=== PATIENT | male | born 1930 | race Caucasian/White ===

== ENCOUNTER 2016-06-02 23:19 | Inpatient (IN) | payer OTHER ==
[~2016-06-02] VITALS: Ht 165.1 cm; Wt 63.5 kg
[~2016-06-02 23:19] MED LIST: AMIODARONE HCL200 M1 PO; AMLODIPINE BESYL5 M1 PO; ASPIRIN EC81 M1 PO; AUGMENTIN 875-1 EACH PO; ELIQUIS5 M1 PO; FLOMAX0.4 M1 PO; GLYCOTROL CAPS1 EACH PO; LISINOPRIL10 M1 PO; LOPRESSOR50 M1 PO; LOSARTAN POTASS50 M1 PO; OMEGA 3-6-9 11200 MG PO; OMEPRAZOLE20 M3 PO; OSTERA TABLET1 EACH PO; PAN-C 500 TABL1 EACH PO; PREDNISONE10 M2 PO; PROAIR HFA8.5 GM INH; SYMBICORT 16010.2 GM INH
--- NOTE | 2016-06-02 23:22 | ED DYSPNEA/ASTHMA COMPLAINT ---
History of Present Illness General Chief Complaint: Dyspnea (COPD, CHF, Other) Stated Complaint: SOB Source: patient Exam Limitations: no limitations Vital Signs & Intake/Output Vital Signs & Intake/Output Vital Signs Date Time Temp Pulse Resp B/P Pulse O2 O2 Flow FiO2 Ox Delivery Rate 06/03 0158 97.9 76 22 139/63 97 Nasal 3.0L Cannula 06/03 0114 92 Nasal 3.0L Cannula 06/02 2334 100 Aerosol 7.0L Mask 06/02 2333 100 Non 6.0L ReBreather 06/02 2326 97.7 58 24 166/96 100 Non 6.0L ReBreather ED Intake and Output 06/03 0000 06/02 1200 Intake Total Output Total Balance Patient 145 lb Weight Allergies Coded Allergies: NO KNOWN ALLERGIES (01/24/12) Reconcile Medications Albuterol Sulfate (Proair Hfa) 90 MCG HFA.AER.AD 2 PUF INH Q4-6 PRN PRN COPD Amiodarone HCl 200 MG TABLET 200 MG PO BID irrigular rhythm Amlodipine Besylate 5 MG TABLET 5 MG PO DAILY HEART HEALTH (Reported) Apixaban (Eliquis) 5 MG TABLET 5 MG PO BID BLOOD THINNER Aspirin (Ecotrin*) 81 MG TABLET.DR 81 MG PO DAILY HEART HEALTH (Reported) Budesonide/Formoterol Fumarate (Symbicort 160-4.5 Mcg Inhaler) 160 MCG-4.5 MCG/ ACTUATION HFA.AER.AD 2 PUF INH BID COPD Losartan Potassium 50 MG TABLET 50 MG PO DAILY HIGH BLOOD PRESSURE Metoprolol Tartrate (Lopressor) 50 MG TABLET 50 MG PO BID HIGH BLOOD PRESSURE (Reported) Omeprazole 20 MG TABLET.DR 20 MG PO DAILY ACID REFLUX Prednisone 10 MG TABLET 1 TAB PO SI COPD 03/05-03/06 30 MG 03/07-03/08 20 MG 03/09 10 MG Then Stop Prednisone 10 MG TABLET 1 TAB PO AD COPD DAY1/DAY2 FOUR TABS DAY3/DAY4 THREE TABS DAY5/DAY6 TWO TABS DAY7 ONE TAB Tamsulosin HCl (Flomax) 0.4 MG CAP.ER.24H 0.4 MG PO DAILY urinary retention Vit B12/FA/Pyridoxine HCl/Aa15 (Glycotrol Capsule) 500 MCG-400 MCG-10 MG-400 MG CAPSULE 100 MCG PO DAILY ANEMIA (Reported) Vit C/Hesperidin/Bioflavonoids (Grande-C 500 Tablet) 500 MG-100 MG-100 MG TABLET 500 MG PO DAILY IMMUNE SUPPORT (Reported) Vit D3 & K/Berberine HCl/Hops (Ostera Tablet) 500 UNIT-500 MCG-90 MG-370 MG TABLET 1,000 UNITS PO DAILY HEART HEALTH (Reported) Triage Nurses Notes Reviewed? yes Onset: Gradual Duration: day(s):, waxing and waning Timing: recent history Severity: moderate Activities at Onset: none Prior Episodes/Possible Cause: occasional episodes Modifying Factors: Improves With: rest. Associated Symptoms: cough, wheezing HPI: 86yo gentleman h/o copd, presents with cough, dypsnea, shortness of breath, wheezing that started earlier today. The medics noted that he was breathless, with difficulty speaking, 02 sat was 90 -93% on 2liters nasal cannula. He received solumedrol 125mg iv and duo neb in the field. Past History Medical History Any Pertinent Medical History? 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 No Review of Systems Review of Systems Constitutional: Reports: no symptoms. EENTM: Reports: no symptoms. Respiratory: Reports: no symptoms. Cardiovascular: Reports: no symptoms. GI: Reports: no symptoms. Genitourinary: Reports: no symptoms. Musculoskeletal: Reports: no symptoms. Skin: Reports: no symptoms. Neurological/Psychological: Reports: no symptoms. Hematologic/Endocrine: Reports: no symptoms. Immunologic/Allergic: Reports: no symptoms. All Other Systems: Reviewed and Negative Physical Exam Physical Exam General Appearance: well developed/nourished, no apparent distress Head: atraumatic, normal appearance Eyes: Bilateral: normal appearance. Ears, Nose, Throat: normal pharynx, normal ENT inspection Neck: normal inspection, supple, full range of motion Respiratory: wheezing, prolonged expiratory phase Cardiovascular: regular rate/rhythm Gastrointestinal: normal bowel sounds, soft, non-tender Extremities: normal inspection Neurologic/Psych: no motor/sensory deficits, awake, alert, oriented x 3 Skin: intact, normal color, warm/dry Core Measures ACS in differential dx? No Severe Sepsis Present: No Septic Shock Present: No Progress Differential Diagnosis: asthma, bronchitis, CHF, COPD, pneumonia Plan of Care: Orders Procedure Date/time Status Heart Healthy Diet 06/03 B Active CBC WITHOUT DIFFERENTIAL 06/03 599 Active BASIC ELECTROLYTES PLUS BUN&CR 06/03 599 Active Pathway - chart 06/03 139 Active House Staff 06/03 139 Active Patient Data 06/03 139 Active Code Status 06/03 139 Active Patient Data 06/03 0133 Active VTE Mechanical Prophylaxis 06/03 UNK Active BLOOD CULTURE 06/02 2355 Active BLOOD CULTURE 06/02 2354 Active ARTERIAL BLOOD GAS (GEN) 06/02 2322 Complete TROPONIN LEVEL 06/02 2322 Complete LIPASE 06/02 2322 Complete COMPREHENSIVE METABOLIC PANEL 06/02 2322 Complete CBC WITHOUT DIFFERENTIAL 06/02 2322 Complete AMYLASE 06/02 2322 Complete Laboratory Tests 06/02/16 2353: Anion Gap 6, Estimated GFR > 60, BUN/Creatinine Ratio 12.2, Glucose 115 H, Calcium 8.7, Total Bilirubin 0.7, AST 34, ALT 42, Alkaline Phosphatase 119, Troponin I < 0.01, Total Protein 6.0 L, Albumin 3.5, Globulin 2.5, Albumin/ Globulin Ratio 1.4, Amylase < 30 L, Lipase 126, CBC w Diff MAN DIFF ORDERED, RBC 4.01 L, MCV 95.2 H, MCH 32.1 H, RDW 13.9, MPV 8.6, Gran % 63.8, Lymphocytes % 14.5 L, Monocytes % 14.0 H, Eosinophils % 7.0 H, Basophils % 0.7, Absolute Granulocytes 6.6 H, Segmented Neutrophils 65, Absolute Lymphocytes 1.5, Lymphocytes 17 L, Monocytes 8, Absolute Monocytes 1.4 H, Eosinophils 7 H, Absolute Eosinophils 0.7, Basophils 3 H, Absolute Basophils 0.1, Platelet Estimate ADEQUATE, Normocytic RBCs VERIFIED, Normochromic RBCs VERIFIED, PUBS MCHC 33.7, Fld Total RBCs Counted 100 06/02/160: pH 7.41, pCO2 42, pO2 151 H, HCO3 26, ABG O2 Sat (Measured) 98.0, P-50 (Temp Corrected) Y, Carboxyhemoglobin 0.3 L, O2 Concentration % 9 LPM, Temperature 97.7, O2 Delivery Method A/M W/ NEB, Phlebotomy Draw Site RIGHT RADIAL Microbiology 06/03 19 BLOOD: Blood Culture - RECD 06/03 4 BLOOD: Blood Culture - RECD Diagnostic Imaging: Viewed by Me: Radiology Read. Discussed w/RAD: Radiology Read. CXR Impression: hyperinflation Initial ED EKG: normal axis, normal intervals, normal p-waves, normal QRS complex, normal sinus rhythm Comments: PATIENT: ZARINA SMITH PRESENT AGE: 86 PATIENT ACCOUNT NO: [id number] : 30 LOCATION: [facility] ORDERING PHYSICIAN: CLAUDETTE MCCARTNEY MD SERVICE DATE: 06/02/16 EXAM TYPE: RAD - XRY-PORTABLE CHEST XRAY EXAMINATION: CHEST 1 VIEW CLINICAL INFORMATION: Dyspnea. COMPARISON: 03/17/2016. TECHNIQUE: An AP view of the chest is provided. FINDINGS: The cardiac silhouette is not enlarged. The mediastinal and hilar contours are unremarkable. There are neither pleural effusions nor pneumothoraces. There are no consolidations. The lungs are hyperinflated. The osseous structures are unremarkable. IMPRESSION: No evidence for acute disease. Lung hyperinflation. 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 <Electronically signed in Other Vendor System> SIGNED BY: LLOYD WHARTON MD 06/03/16 004 Departure Departure Disposition: STILL A PATIENT Condition: Stable Clinical Impression Primary Impression: COPD exacerbation Referrals: GA NEWSOME,HADLEY Santos (PCP/Family) Departure Forms: Customer Survey General Discharge Information Admission Note Spoke With: BRANDIN TURNER MD Documentation of Exam: Documentation of any treatments & extenuating circumstances including Concerns Regarding Discharge (functional status, medication knowledge or non-compliance, living conditions, etc.) that warrant an admission rather than observation: After IV steroids and nebs, patient continues to be dyspneic and wheezy with prolonged expiratory phase. His baseline oxygen requirement is 2 L nasal cannula. At this level, his O2 sat is in the low 90s, with symptomatic dyspnea. He merits admission for supplemental oxygen support, IV steroids, nebulizer treatment, and IV antibiotics. Critical Care Note Critical Care Note Critical Care Time: non-applicable
--- NOTE | 2016-06-02 23:25 | NUR ---
PT BIBA FROM HOME C/O INCREASING SOB. PT HAS HX OF COPD. PER EMS PT WAS 93% ON 2L THAT HE WEARS AT HOME. PT RECIEVED A DUONEB AND 125MG SOLUMEDROL IN THE FIELD. PT ARRIVES [id number], 100% ON DUONEB, USING ACCESSORY MUSCLES.
--- NOTE | 2016-06-02 23:33 | NUR ---
RESPIRATORY AT BEDSIDE
[2016-06-03 00:01] LABS: ABSOLUTE BASOPHIL COUNT 0.1 /CUMM (0.0-0.2); ABSOLUTE EOSINOPHIL COUNT 0.7 /CUMM (0.0-0.7); ABSOLUTE GRANULOCYTE CT 6.6 /CUMM (1.4-6.5); ABSOLUTE LYMPH COUNT 1.5 /CUMM (1.2-3.4); ABSOLUTE MONOCYTE COUNT 1.4 /CUMM (0.10-0.60); BASOPHIL % 0.7 % (0.0-2.0); GRANULOCYTE % 63.8 % (42.2-75.2); HEMATOCRIT 38.1 % (42-52); MEAN CORPUSCULAR HGB 32.1 PG (27.0-31.0); MEAN CORPUSCULAR HGB CONC 33.7 G/DL (33.0-37.0); MEAN CORPUSCULAR VOLUME 95.2 FL (80.0-94.0); MEAN PLATELET VOLUME 8.6 FL (7.4-10.4); PLATELET COUNT 320 /CUMM (130-400); RBC DISTRIBUTION WIDTH 13.9 % (11.5-14.5); RED BLOOD CELL CT 4.01 /CUMM (4.70-6.10); WHITE BLOOD CELL COUNT 10.4 /CUMM (4.8-10.8)
--- NOTE | 2016-06-03 00:17 | NUR ---
SECOND IV EST #20 IN RIGHT FOREARM, BLOODS DRAWN AND SENT TO LAB
--- NOTE | 2016-06-03 00:30 | NUR ---
PT MEDICATED WITH 1G ROCEPHIN AND 250MG ZITHROMAX INFUSING PER EMAR
--- NOTE | 2016-06-03 00:41 | RADIOLOGY REPORT ---
EXAMINATION: CHEST 1 VIEW CLINICAL INFORMATION: Dyspnea. COMPARISON: 03/17/2016. TECHNIQUE: An AP view of the chest is provided. FINDINGS: The cardiac silhouette is not enlarged. The mediastinal and hilar contours are unremarkable. There are neither pleural effusions nor pneumothoraces. There are no consolidations. The lungs are hyperinflated. The osseous structures are unremarkable. IMPRESSION: No evidence for acute disease. Lung hyperinflation.
--- NOTE | 2016-06-03 02:21 | NUR ---
HOUSE STAFF AT BEDSIDE FOR PT EVAL
--- NOTE | 2016-06-03 02:26 | History & Physical ---
WENDY NEWSOME,[facility] 06/03/16 0226: General Information and HPI MD Statement: I have seen and personally examined ZARINA SMITH and documented this H&P. The patient is a 86 year old M who presented with a patient stated chief complaint of [I couldn't breathe]. Source of Information: patient Exam Limitations: no limitations History of Present Illness: Patient is a 86 year old male who has come to the ED from home due to worsening shortness of breath since yesterday. Patient has had SOB for a while (not sure how long), both at rest and on ambulation but since yesterday he has significantly increased difficulty breathing accompanied by wheezing, coughing and bringing up phlegm. denies fever or chills. Denies any sick contacts or flu- like symptoms. He has a history of COPD on inhalers and 2L oxygen at home and follows up with Dr. Bonner. He also reports bilateral lower leg swelling for about a month. Denies any chest pain or palpitations. He has a history of coronary artery disease and follows up with Dr. Cordoba and was supposed to see him today (last saw him 3 months ago). Patient was last admitted to in January 2016 due to shortness of breath and cough and was treated for acute bronchitis. Allergies/Medications Allergies: Coded Allergies: NO KNOWN ALLERGIES (01/24/12) Past History Travel History Traveled to [place] past 21 day No Medical History Neurological: NONE EENT: NONE Cardiovascular: CAD, hypertension, hyperlipidemia, paroxysmal atrial fibrillation. Saccular aneurysms of thoracic aortic arch, patient has refused any intervention. Respiratory: bronchitis, COPD Gastrointestinal: NONE Hepatic: NONE Renal: per the patient he also has bladder cancer, follows up with Dr. Sigala, she suggested surgical treatment but patient has refused. 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 EENTM: Reports: no symptoms. Cardiovascular: Reports: edema, peripheral edema. Denies: chest pain, orthopena, palpitations, syncope. Respiratory: Reports: cough, short of breath, sputum production (clear phlegm), wheezing. Denies: hemoptysis, orthopnea, stridor. GI: Denies: abdominal pain, nausea, changes in stool, vomiting. Genitourinary: Reports: no symptoms. Musculoskeletal: Reports: no symptoms. Skin: Reports: no symptoms. Neurological/Psychological: Reports: no symptoms. Hematologic/Endocrine: Reports: no symptoms. Exam & Diagnostic Data Last 24 Hrs of Vital Signs/I&O Vital Signs Date Time Temp Pulse Resp B/P Pulse O2 O2 Flow FiO2 Ox Delivery Rate 06/03 0158 97.9 76 22 139/63 97 Nasal 3.0L Cannula 06/03 0114 92 Nasal 3.0L Cannula 06/02 2334 100 Aerosol 7.0L Mask 06/02 2333 100 Non 6.0L ReBreather 06/02 2326 97.7 58 24 166/96 100 Non 6.0L ReBreather Intake & Output 06/03 0800 06/03 0000 06/02 1600 Intake Total 250 Output Total Balance 250 Intake, IV 250 Patient 65.771 kg Weight Physical Exam General Appearance Alert, Oriented X3, Cooperative, Mild Distress Skin several hyperkeratotic skin lesions in the posterior trunk HEENT Atraumatic, PERRLA, EOMI, Mucous Membr. moist/pink Neck Supple, JVD + Cardiovascular Normal S1, Normal S2 Lungs end expiratory wheezing, bilateral and scattered rhonchi present Abdomen Normal Bowel Sounds, Soft, No Tenderness Neurological Normal Speech, Strength at 5/5 X4 Ext, Normal Tone, Sensation Intact, Cranial Nerves 3-12 NL Extremities No Clubbing, No Cyanosis, 3+ pitting edema bilaterally in lower extremities Vascular Normal Pulses, Pulses Symmetrical Last 24 Hrs of Labs/Kushal: Laboratory Tests 06/02/16 2353: Anion Gap 6, Estimated GFR > 60, BUN/Creatinine Ratio 12.2, Glucose 115 H, Calcium 8.7, Total Bilirubin 0.7, AST 34, ALT 42, Alkaline Phosphatase 119, Troponin I < 0.01, Qre-P-Bthvrscumbp Pept 720 H, Total Protein 6.0 L, Albumin 3.5, Globulin 2.5, Albumin/Globulin Ratio 1.4, Amylase < 30 L, Lipase 126, CBC w Diff MAN DIFF ORDERED, RBC 4.01 L, MCV 95.2 H, MCH 32.1 H, RDW 13.9, MPV 8.6, Gran % 63.8, Lymphocytes % 14.5 L, Monocytes % 14.0 H, Eosinophils % 7.0 H, Basophils % 0.7, Absolute Granulocytes 6.6 H, Segmented Neutrophils 65, Absolute Lymphocytes 1.5, Lymphocytes 17 L, Monocytes 8, Absolute Monocytes 1.4 H, Eosinophils 7 H, Absolute Eosinophils 0.7, Basophils 3 H, Absolute Basophils 0.1, Platelet Estimate ADEQUATE, Normocytic RBCs VERIFIED, Normochromic RBCs VERIFIED, PUBS MCHC 33.7, Fld Total RBCs Counted 100 06/02/16 2340: pH 7.41, pCO2 42, pO2 151 H, HCO3 26, ABG O2 Sat (Measured) 98.0, P-50 (Temp Corrected) Y, Carboxyhemoglobin 0.3 L, O2 Concentration % 9 LPM, Temperature 97.7, O2 Delivery Method A/M W/ NEB, Phlebotomy Draw Site RIGHT RADIAL Microbiology 06/03 0020 BLOOD: Blood Culture - RECD 06/03 0005 BLOOD: Blood Culture - RECD Assessment/Plan Assessment: Patient is a 85-year-old male with past medical history of COPD and chronic bronchitis on 2L O2 at home, HTN, CAD s/p angioplasty, hx of bladder and prostate cancer, thoracic aortic aneurysm, paroxysmal atrial fibrillation, who presented to the ED with a chief complaint of worsening shortness of breath and wheezing as well as B/L lower extremity edema. Problem list and plan: Shortness of breath most likely secondary to COPD exacerbation, rule out CHF In the ED was saturating on 3 L with nasal cannula, vital signs stable, chest x- ray showing hyperinflated lungs with no pleural effusion or consolidation. B/L LE edema. Negative troponin, proBNP elevated to 720 * Oxygen supplementation as needed * Vital signs every shift * TRC nebs * IV Solu-Medrol 40 mg 4 times a day * IV ceftriaxone, 1 mg daily (azithromycin can't be given due to prolonged QTC) * 20 mg IV Lasix one-time dose * Repeat sodium 4 hours * Strict I's and O's * Monitor weight * Fluid restriction in the diet * Cardiology consult in a.m. with Dr. Cordoba * follow up repeat troponin and EKG in a.m. Hyponatremia Possibly due to volume overload * IV lasix 20 mg 1 dose * Fluid restriction 1000 ml * follow up serum osmolality, unrine osmolality and urine lytes Paroxysmal atrial fibrillation * Eliquis 5 mg twice a day * Amiodarone 200 mg twice a day (CMR needs to be confirmed) Hypertension * Continue amlodipine 5 mg daily * Continue amiodarone * will start losartan and Flomax after confirming the CMR History of thoracic aortic aneurysm Currently hemadynamometrically stable. Denies chest pain. Pressure in both arms were checked, R 160/80 and L 160/60. Diet * Heart healthy diet with fluid restriction DVT prophylaxis * Continue Eliquis CODE STATUS * Full code As Ranked By This Provider Problem List: 1. COPD exacerbation 2. CAD (coronary artery disease) 3. Chronic bronchitis 4. Paroxysmal atrial fibrillation 5. Prostate cancer 6. HTN (hypertension) Core Measures/Miscellaneous Acute Coronary Syndrome ACS Diagnosis: No Cerebrovascular Accident CVA/TIA Diagnosis: No Congestive Heart Failure CHF Diagnosis: No (needs to be ruled out) Date of most recent Echo: 02/29/16 Last Known EF %: 65 Comment: elevated proBNP, LE edema Venous Thromboembolism VTE Risk Factors: Acute medical illness, Age > 40 VTE Prophylaxis Ordered Inpt: Pharm- Eliquis No [facility] VTE prophylaxis d/t: No contraindications No VTE Pharm Prophylaxis d/t: No contraindications VTE Diagnosis: No VTE Type: NONE VTE Confirmed by (Test): NONE Severe Sepsis Severe Sepsis Present: No Septic Shock Septic Shock Present: No Miscellaneous Documentation Attending Case Discussed With: BRANDIN TURNER MD Primary Care Physician: HADLEY KOROMA MD Patient sees these Specialists Dr. Cordoba, cardiology Dr. Sigala, urology THIAGO TAMAYO 06/03/16 0330: General Information and HPI Allergies/Medications Home Med list Albuterol Sulfate (Proair Hfa) 90 MCG HFA.AER.AD 2 PUF INH Q4-6 PRN PRN COPD Amiodarone HCl 200 MG TABLET 200 MG PO BID irrigular rhythm Amlodipine Besylate 5 MG TABLET 5 MG PO DAILY HEART HEALTH (Reported) Apixaban (Eliquis) 5 MG TABLET 5 MG PO BID BLOOD THINNER Aspirin (Ecotrin*) 81 MG TABLET.DR 81 MG PO DAILY HEART HEALTH (Reported) Budesonide/Formoterol Fumarate (Symbicort 160-4.5 Mcg Inhaler) 160 MCG-4.5 MCG/ ACTUATION HFA.AER.AD 2 PUF INH BID COPD Losartan Potassium 50 MG TABLET 50 MG PO DAILY HIGH BLOOD PRESSURE Metoprolol Tartrate (Lopressor) 50 MG TABLET 50 MG PO BID HIGH BLOOD PRESSURE (Reported) Omeprazole 20 MG TABLET.DR 20 MG PO DAILY ACID REFLUX Tamsulosin HCl (Flomax) 0.4 MG CAP.ER.24H 0.4 MG PO DAILY urinary retention Vit B12/FA/Pyridoxine HCl/Aa15 (Glycotrol Capsule) 500 MCG-400 MCG-10 MG-400 MG CAPSULE 100 MCG PO DAILY ANEMIA (Reported) Vit C/Hesperidin/Bioflavonoids (Grande-C 500 Tablet) 500 MG-100 MG-100 MG TABLET 500 MG PO DAILY IMMUNE SUPPORT (Reported) Vit D3 & K/Berberine HCl/Hops (Ostera Tablet) 500 UNIT-500 MCG-90 MG-370 MG TABLET 1,000 UNITS PO DAILY HEART HEALTH (Reported) Core Measures/Miscellaneous Miscellaneous Documentation Level of Patient Care: General Medicine Resident Review Statement Resident Statement: examined this patient, discussed with wireless internet installer Other Findings: Patient is 86-year-old gentleman with past medical history significant for atrial fibrillation on eliquis and amiodarone, hypertension, CAD status post angioplasty, prostate cancer, oxygen dependent COPD, 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 According to patient he was very short of breath lately but that got worse yesterday when it was hard for him to catch his breath and he was wheezing a lot. He also admits that he has mild productive cough with clear phlegm and worsening bilateral lower extremity edema. He denied fever, chills, headache, chest pain, palpitations, nausea, vomiting, any urinary or bowel complaints. Vital signs on admission were temperature 97.7, pulse 58, respiratory rate 24, blood pressure was 66/96 and saturating 100% on 100% nonrebreather but later on was saturating 97% on 3 L nasal cannula. Labs were significant for WBC count 10.4, hemoglobin 12.9, hematocrit 38.1, platelet count 320, ABGs shows pH of 7.41, PCO2 42, PO2 151, sodium 124, potassium 3.8, chloride 88, BUN 11, creatinine 0.9, glucose 115, troponins less than 0.01 and proBNP 720 EKG showed prolonged QTC, no acute ST T-wave changes Chest x-ray showed hyperinflated lungs Physical examination Alert and oriented 3 but in mild distress and using accessory muscles for breathing Head atraumatic Neck supple with elevated JVD Heart muffled heart sound without any murmurs Chest loud wheezing with reduced air entry Abdomen protuberant with normal bowel sounds Extremities shows 2+ bilateral lower extremity edema no Neurological deficit Assessment and plan Patient is 86 years old gentleman with history of COPD on 2 L home oxygen, CAD, prostate cancer, hypertension, atrial fibrillation on anticoagulation came with worsening shortness of breath and wheezing with hypoxia most likely due to COPD exacerbation but CHF needs to be ruled out We will admit patient on general medical floor Vital signs every shift Check ins and outs Repeat labs in a.m. including troponins and EKGs We'll give patient 20 mg of IV Lasix now and will request cardiology evaluation by Dr. Cordoba in a.m. patient had recent echocardiogram showed normal ejection fraction TRC and nebulization\ Will start her on ceftriaxone 1 g daily. Azithromycin can't be given due to prolonged QTC Fluid restriction We will continue home doses of amlodipine, amiodarone, etc. then, losartan and Flomax Pharmacological DVT prophylaxis with apixiban Heart healthy diet He is DNI DNR BRANDIN TURNER 06/03/16 0435: Attending MD Review Statement Attending Statement Attending MD Statement: examined this patient, discuss w/resident/PA/DOOR TO DOOR SALES REPRESENTATIVE, agreed w/resident/PA/DOOR TO DOOR SALES REPRESENTATIVE, reviewed EMR data (avail), reviewed images, amended to note Attending Assessment/Plan: CC: Acute worsening of shortness of breath PMH: HTN, CAD S/P stent, prostate cancer, history of COPD bronchitis on 2 L O2, paroxysmal A. fib, COPD on 2 L O2, aneurysm in aortic arch and distal thoracic aorta. Patient came with progressive worsening of shortness of breath and wheezing progressively worsening over few days but acutely worsened yesterday. It is associated with productive cough with white colored sputum, worsening of leg swelling since one month. Denies chest pain, fever, chills, dizziness, abdominal pain. Patient received DuoNeb, IV Solu-Medrol en route in EMS. Vitals: Afebrile, HR 76, RR 22-24, BP 139/63, initially on NRB later O2 taper down to 3 L by NC, saturating 97% on 3 L on exam: A O 3, respiratory distress, accessory muscles in use, ? Elevated JVD, neck supple, no lymphadenopathy, mucosa moist. RS: Extensive wheezing bilaterally, no basilar crackles CVS: S1-S2 , RRR. Abdomen: Soft, distended, bowel sounds present. No focal neurological deficit. Pitting edema bilateral lower extremity. Labs: WBC 10.4, neutrophils 63%, hemoglobin 12.9, MCV 95.2, sodium 124,, glucose 115, proBNP 720 AB.41/42/151/26 on 9 L. CXR: Lung hyperinflation, no acute cardiopulmonary process. A and P #1 acute hypoxic respiratory failure : Extensive wheezing bilaterally, history of COPD, increased O2 requirement, accessory muscles in use. Most likely secondary to COPD exacerbation. Patient's QTC is prolonged avoid Levaquin and azithromycin, continue IV ceftriaxone, IV methylprednisolone 40 mg every 8 hour, albuterol and ipratropium nebulization scheduled and when necessary, Mucinex by mouth twice a day, O2 by nasal cannula. Inform pulmonology in a.m. patient known to Dr. Bonner. Heart failure cannot be ruled out at this point, mildly elevated proBNP, bilateral dependent edema, 1 dose of IV Lasix 20 mg now, cardiology consult in a.m. patient's recent echocardiogram shows ejection fraction of 60% without any diastolic failure, CXR is unremarkable. Serial EKG, and troponin 1 more set in 4-6 hours. #2 hyponatremia: Patient's sodium was 131 in March, this can be hypervolumic hyponatremia, check urine osmolality, urine electrolytes, serum osmolality. 1 dose of IV Lasix 20 mg accordingly. Repeat BMP in 4 hours. #3 history of thoracic aorta and aortic arch aneurysm: Check blood pressure in both arms, patient currently denies chest pain and blood pressure is stable. #4 history of paroxysmal A. fib: Continue amiodarone, Eliquis. Repeat EKG in a.m. #5 HTN: Continue amlodipine, losartan, metoprolol. #6 continue tamsulosin. #7 DVT prophylaxis: Currently on Eliquis. Adequate pain control. History of alcoholism continue when necessary Ativan according to CIWA score. Replace thiamine and folic acid.
--- NOTE | 2016-06-03 03:16 | NUR ---
PT MEDICATED WITH 20MG LASIX PER EMAR
--- NOTE | 2016-06-03 03:19 | NUR ---
PT ASSIGNED TO # [id number]
--- NOTE | 2016-06-03 04:06 | NUR ---
REPORT GIVEN [facility]
--- NOTE | 2016-06-03 04:16 | Admission Certification ---
Admission Certification Certification Statement - As attending physician, I certify that at the time of - admission, based on clinical presentation, severity of - symptoms, need for further diagnostic testing and - therapeutic interventions, and risk of adverse outcomes - without in-hospital treatment, in my clinical assessment, - this patient requires an acute hospital stay for a minimum - of two nights or longer. I have also considered psychsocial - factors such as support system, advanced age, financial - issues, cognitive issues, and failed out-patient treatments, - past re-admission history, safety of patient, and lack of - compliance as applicable. Specific rationale supporting this admission is: Acute respiratory failure secondary to COPD exacerbation
[2016-06-03 06:36] VITALS: BP 120/80
[2016-06-03 06:37] VITALS: BP 140/50
--- NOTE | 2016-06-03 07:32 | PN- Housestaff ---
See Addendum Subjective Follow-up For: Severe COPD exacerbation Bilateral lower extremity edema Subjective: Patient seen and examined at bedside this AM. He reports his respiratory status is slightly improved since admission. He does continue to endorse bilateral lower extremity edema. Review of Systems Constitutional: Denies: chills, fever, malaise. EENTM: Denies: blurred vision, visual changes, hearing changes, nasal congestion, throat pain. Cardiovascular: Reports: peripheral edema. Denies: chest pain, palpitations. Respiratory: Reports: cough, short of breath. Denies: wheezing. Gastrointestinal: Denies: abdominal pain, bloating, constipation, diarrhea. Genitourinary: Denies: dysuria, hematuria. Musculoskeletal: Denies: back pain. Skin: Denies: lesions. Neurological/Psychological: Denies: confusion, headache. Hematologic/Endocrine: Denies: bruising, bleeding. Objective Last 24 Hrs of Vital Signs/I&O Vital Signs Date Time Temp Pulse Resp B/P Pulse O2 O2 Flow FiO2 Ox Delivery Rate 06/03 1341 97.4 64 18 130/80 94 Nasal 3.0L Cannula 06/03 1105 95 Nasal 3.0L Cannula 06/03 1055 Nasal 3.0L Cannula 06/03 1002 140/50 06/03 1000 140/50 06/03 0637 97.5 60 18 140/50 96 Nasal 3.0L Cannula 06/03 0636 120/80 06/03 0450 Nasal 3.0L Cannula 06/03 0341 97 Nasal 3.0L Cannula 06/03 0158 97.9 76 22 139/63 97 Nasal 3.0L Cannula 06/03 0114 92 Nasal 3.0L Cannula 06/02 2334 100 Aerosol 7.0L Mask 06/02 2333 100 Non 6.0L ReBreather 06/02 2326 97.7 58 24 166/96 100 Non 6.0L ReBreather Intake & Output 06/03 1600 06/03 0800 06/03 0000 Intake Total 370 Output Total 450 Balance -450 370 Intake, IV 270 Intake, Oral 100 Output, Urine 450 Patient 140 lb 145 lb Weight Physical Exam General Appearance: Alert, Oriented X3, Cooperative, No Acute Distress Skin: Noted hyperkeratotic skin lesions on back HEENT: Atraumatic, PERRLA, EOMI, Mucous Membr. moist/pink Neck: Supple Cardiovascular: Normal S1, Normal S2 Lungs: Wheezing present bilaterally, basal rhonchi noted. Abdomen: Normal Bowel Sounds, Soft, No Tenderness, No Hepatospenomegaly, No Masses Neurological: Normal Speech, Normal Tone, Sensation Intact Extremities: No Clubbing, No Cyanosis, 2-3+ pitting edema bilaterally. Vascular: Pulses Symmetrical Current Medications: Current Medications Sig/Jimbo Start time Last Medication Dose Route Stop Time Status Admin Acetaminophen 650 MG Q6P PRN 06/03 0315 AC PO Albuterol Sulfate 3 ML TID 06/03 1600 AC 06/03 INH 1343 Albuterol Sulfate 2 PUF Q4-6 PRN PRN 06/03 0315 AC INH Albuterol Sulfate 3 ML ONCE ONE 06/03 0115 DC 06/03 INH 06/03 0116 0114 Albuterol Sulfate 3 ML ONCE ONE 06/02 2330 DC 06/02 INH 06/02 2331 2334 Amiodarone HCl 200 MG BID 06/03 1000 DC PO Amiodarone HCl 200 MG DAILY 06/03 1000 AC 06/03 PO 1002 Amlodipine Besylate 5 MG DAILY 06/03 1000 AC 06/03 PO 1000 Amoxicillin/ 875 MG Q12 06/04 1000 AC Clavulanate Potassium PO Apixaban 5 MG BID 06/03 1000 AC 06/03 PO 1001 Aspirin Buffered 81 MG DAILY 06/03 1000 AC 06/03 PO 1001 Azithromycin 500 MG DAILY 06/03 1000 CAN Dextrose/Water 250 ML IV Azithromycin 500 MG ONCE ONE 06/02 2330 DC 06/03 Dextrose/Water 250 ML IV 06/03 0029 0029 Budesonide/ 2 PUF BID 06/03 1000 AC 06/03 Formoterol Fumarate INH 1002 Ceftriaxone Sodium 1,000 MG 0000 06/04 0000 DC IV Ceftriaxone Sodium 1,000 MG DAILY 06/03 1200 AC IV 06/04 0005 Ceftriaxone Sodium 0 .STK-MED ONE 06/03 0021 DC .ROUTE Ceftriaxone Sodium 1,000 MG ONCE ONE 06/02 233 DC 06/03 IV 06/02 233 0029 Furosemide 0 .STK-MED ONE 06/03 0335 DC IV Furosemide 20 MG ONCE ONE 06/03 0315 DC 06/03 IV 06/03 0316 0316 Ibuprofen 600 MG Q6P PRN 06/03 0315 CAN PO Ipratropium Harvey 2.5 ML ONCE ONE 06/02 2330 DC 06/02 INH 06/02 2331 2334 Lorazepam 0.5 MG DAILY PRN 06/03 1200 AC PO 06/10 1159 Lorazepam 0 Q1P PRN 06/03 0430 DC IV Losartan Potassium 50 MG DAILY 06/03 1000 AC 06/03 PO 1001 Methylprednisolone 40 MG Q8 06/03 0600 AC 06/03 IV 06/04 0000 0534 Metoprolol Tartrate 25 MG BID 06/03 2200 AC PO Metoprolol Tartrate 50 MG BID 06/03 1000 DC 06/03 PO 1001 Omeprazole 20 MG DAILY AC 06/03 0700 AC 06/03 PO 0534 Oxycodone/ 2 TAB Q6P PRN 06/03 0315 CAN Acetaminophen PO Patient Medication 1 ED .STK-MED ONE 06/03 1335 IN Teaching ED 06/03 1336 Prednisone 50 MG DAILY 06/04 1000 AC PO Tamsulosin HCl 0.4 MG DAILY 06/03 1000 AC 06/03 PO 1001 Last 24 Hrs of Lab/Kushal Results Last 24 Hrs of Labs/Mics: Laboratory Tests 06/03/16 0920: Urine Osmolality 259 L, Ur Random Creatinine 23.4, Ur Random Sodium 76, Ur Random Potassium 23.8, Fraction Sodium Excret 2.4 H 06/03/16 0710: Troponin I Cancelled 06/03/16 0710: Anion Gap 8, Estimated GFR > 60, BUN/Creatinine Ratio 11.1, Troponin I < 0.01, CBC w Diff MAN DIFF ORDERED, RBC 3.94 L, MCV 95.3 H, MCH 32.3 H, RDW 13.8, MPV 9.3, Gran % 94.3 H, Lymphocytes % 5.3 L, Monocytes % 0.4 L, Eosinophils % 0, Basophils % 0 L, Absolute Granulocytes 4.8, Absolute Lymphocytes 0.3 L, Absolute Monocytes 0 L, Absolute Eosinophils 0, Absolute Basophils 0, Platelet Estimate VERIFIED BY SMEAR, Normocytic RBCs VERIFIED, Normochromic RBCs VERIFIED , PUBS MCHC 33.8 06/02/16 2353: Anion Gap 6, Estimated GFR > 60, BUN/Creatinine Ratio 12.2, Glucose 115 H, Serum Osmolality 258 L, Calcium 8.7, Total Bilirubin 0.7, AST 34, ALT 42, Alkaline Phosphatase 119, Troponin I < 0.01, Eep-D-Axuootkebry Pept 720 H, Total Protein 6.0 L, Albumin 3.5, Globulin 2.5, Albumin/Globulin Ratio 1.4, Amylase < 30 L, Lipase 126, CBC w Diff MAN DIFF ORDERED, RBC 4.01 L, MCV 95.2 H, MCH 32.1 H, RDW 13.9, MPV 8.6, Gran % 63.8, Lymphocytes % 14.5 L, Monocytes % 14.0 H, Eosinophils % 7.0 H, Basophils % 0.7, Absolute Granulocytes 6.6 H, Segmented Neutrophils 65, Absolute Lymphocytes 1.5, Lymphocytes 17 L, Monocytes 8, Absolute Monocytes 1.4 H, Eosinophils 7 H, Absolute Eosinophils 0.7, Basophils 3 H, Absolute Basophils 0.1, Platelet Estimate ADEQUATE, Normocytic RBCs VERIFIED, Normochromic RBCs VERIFIED, PUBS MCHC 33.7, Fld Total RBCs Counted 100 06/02/16 2340: pH 7.41, pCO2 42, pO2 151 H, HCO3 26, ABG O2 Sat (Measured) 98.0, P-50 (Temp Corrected) Y, Carboxyhemoglobin 0.3 L, O2 Concentration % 9 LPM, Temperature 97.7, O2 Delivery Method A/M W/ NEB, Phlebotomy Draw Site RIGHT RADIAL Microbiology 06/03 1146 LOWER RESP: Respiratory Culture - COLB 06/03 1146 LOWER RESP: Gram Stain - COLB 06/03 0020 BLOOD: Blood Culture - RECD 06/03 0005 BLOOD: Blood Culture - RECD Orders Radiology Findings: EXAMINATION: CHEST 1 VIEW CLINICAL INFORMATION: Dyspnea. COMPARISON: 03/17/2016. TECHNIQUE: An AP view of the chest is provided. FINDINGS: The cardiac silhouette is not enlarged. The mediastinal and hilar contours are unremarkable. There are neither pleural effusions nor pneumothoraces. There are no consolidations. The lungs are hyperinflated. The osseous structures are unremarkable. IMPRESSION: No evidence for acute disease. Lung hyperinflation. Assessment/Plan Assessment: Mr. 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 Bonner, hiatal hernia with Zenker's diverticulum, prior tobacco abuse of greater than 40 years (quit >10 years ago) and prostate cancer who presented to [facility] on 06/03/16 with chief complaint of acute worsening shortness of breath. Patient endorsed acutely worsening shortness of breath in the 2 days prior to admission that was associated with wheezing, cough productive of white sputum, and bilateral lower extremity edema worsening for over 1 month. Patient currently denies fever, chills, dizziness, chest pain, palipations, abdominal pain, diarrhea or dysuria. In the ED: Vital signs show T 97.7, HR 58, RR 24, BP 166/96 and O2 saturation of 100 % on non-rebreather. Labs showed WBC count 10.4, hemoglobin 12.9, hematocrit 38.1, platelet count 320. ABGs shows pH of 7.41, PCO2 42, PO2 151. BEP was signficant for sodium 124, potassium 3.8, chloride 88, BUN 11, creatinine 0.9, glucose 115, troponins less than 0.01 and proBNP 720. EKG showed prolonged QTC, no acute ST T-wave changes. CXR was done which was negative for acute disease but did show lung hyperinflation. Patient was admitted to the general medicine floor and the following is the management: 1. Acute on chronic respiratory failure secondary to COPD exacerbation * Provide supplemental O2 to keep O2 sat >92%, do not drop below patient's home 2L * Noted severe wheezing, accessory muscle use on admission, CXR showed lung hyperinflation * Pulm consult with Dr. Bonner placed and appreciated * IV solumedrol to continue for today, switch to PO prednisone 50 mg daily starting tomorrow * Continue IV ceftraixone today (No azithro was patient has prolonged QTC), will switch to PO Augmentin starting tomorrow * Albuterol and ipratropium nebulizer TID and PRN * F/U blood and LRC * Quickflu pending, f/u results 2. Hyponatremia * Possibly related to COPD vs SIADH * BEP this AM shows Na 124 * Will recheck Na this evening at 6 pm to monitor improvement with 1000 mL fluid restruction * Hold off on lasix for now * Serum osmolality low, urine osmolality low, FENa high to 2.4, however patient received lasix 3. Paroxysmal atrial fibrillation with history of CAD s/p angioplasty and B/L LE edema * Continue eliquis 5 mg PO BID, ASA 81 mg PO daily * Lopressor 25 mg PO BID, amiodarone 200 mg PO daily, losartan 50 mg PO daily, amlodipine 5 mg PO daily * Cardiology consult placed and appreciated * Dr. Cordoba suggested that lower extremity edema is not likely 2/2 CHF exacerbation as recent echo showed good LV systolic function * No need for scheduled lasix, may provide intermittent lasix as needed * Compression stockings for edema with LE elevation 4. History of alcohol use * Patient currently abstaining from alcohol * CIWA score discontinued * However, we have ordered 0.5 mg PO daily PRN ativan as needed for anxiety/ agitation 5. BPH * Continue 0.4 mg PO daily DNR/DNI Diet: Heart Healthy with 1000 mL fluid restriction Mild pain pathway DVTP: Eliquis Problem List: 1. COPD exacerbation 2. HTN (hypertension) 3. CAD (coronary artery disease) 4. Chronic bronchitis 5. Paroxysmal atrial fibrillation Pain Ratin Pain Location: n/a Pain Goal: Remain pain free Pain Plan: Tylenol for mild pain. Tomorrow's Labs & Rationales: BEP (monitor Na in setting of moderate hyponatremia and hypochloremia)
[2016-06-03 08:21] LABS: ABSOLUTE BASOPHIL COUNT 0 /CUMM (0.0-0.2); ABSOLUTE EOSINOPHIL COUNT 0 /CUMM (0.0-0.7); ABSOLUTE GRANULOCYTE CT 4.8 /CUMM (1.4-6.5); ABSOLUTE LYMPH COUNT 0.3 /CUMM (1.2-3.4); ABSOLUTE MONOCYTE COUNT 0 /CUMM (0.10-0.60); BASOPHIL % 0 % (0.0-2.0); EOSINOPHIL % 0 % (0-5); GRANULOCYTE % 94.3 % (42.2-75.2); HEMATOCRIT 37.5 % (42-52); MEAN CORPUSCULAR HGB 32.3 PG (27.0-31.0); MEAN CORPUSCULAR HGB CONC 33.8 G/DL (33.0-37.0); MEAN CORPUSCULAR VOLUME 95.3 FL (80.0-94.0); MEAN PLATELET VOLUME 9.3 FL (7.4-10.4); PLATELET COUNT 339 /CUMM (130-400); RBC DISTRIBUTION WIDTH 13.8 % (11.5-14.5); RED BLOOD CELL CT 3.94 /CUMM (4.70-6.10)
[2016-06-03 08:52] LABS: WHITE BLOOD CELL COUNT 5.1 /CUMM (4.8-10.8)
[2016-06-03] MEDS ORDERED: AMIODARONE HCL200 M1 PO (10:48)
[2016-06-03] MEDS ORDERED: HYDROCHLOROTH12.5 M3 PO (10:48)
--- NOTE | 2016-06-03 11:00 | Cons- Pulmonary ---
General Information and HPI Consulting Request Date of Consult: 06/03/16 Requested By: MEd team History of Present Illness: Patient is a 86 year old male who has come to the ED from home due to worsening shortness of breath since yesterday. Patient has had SOB for a while (not sure how long), both at rest and on ambulation but since yesterday he has significantly increased difficulty breathing accompanied by wheezing, coughing and bringing up phlegm. denies fever or chills. Denies any sick contacts or flu- like symptoms. He has a history of COPD on inhalers and 2L oxygen at home He also reports bilateral lower leg swelling for about a month. Denies any chest pain or palpitations. He has a history of coronary artery disease and follows up with Dr. Cordoba and was supposed to see him today (last saw him 3 months ago). Patient was last admitted to in January 2016 due to shortness of breath and cough and was treated for acute bronchit Since he came in. He has been evaluated with a chest x-ray which was unremarkable other than Showing hyperinflation, previous CT showing a large aortic ulcer with a contained rupture with saccular aneurysm being managed medically by cardiology, CABG did not reveal any hypercarbia, significant hyponatremia, probably related to SIADH. stitutional: Denies: chills, diaphoresis, fever, malaise, weakness, unexplained weight loss. EENTM: Reports: no symptoms. Cardiovascular: Reports: edema, peripheral edema. Denies: chest pain, orthopena, palpitations, syncope. Respiratory: Reports: cough, short of breath, sputum production (clear phlegm), wheezing. Denies: hemoptysis, orthopnea, stridor. GI: Denies: abdominal pain, nausea, changes in stool, vomiting. Genitourinary: Reports: no symptoms. Musculoskeletal: Reports: no symptoms. Skin: Reports: no symptoms. Neurological/Psychological: Reports: no symptoms. Hematologic/Endocrine: Reports: no symptoms. Significant data reviewed. White count 5.1 which was 10.4 upon admission. Hemoglobin 12.9. Patient's blood work did show 7% eosinophils suggesting he may have asthma and well versus bone marrow dysfunction. Sodium 124, chloride 85, ABG 741/42/151. Previous CT as noted above. Previous echocardiogram showed pulmonary hypertension, mitral regurgitation, which is mild with moderate pulmonary hypertension. Allergies/Medications Allergies: Coded Allergies: NO KNOWN ALLERGIES (01/24/12) Home Med List: Albuterol Sulfate (Proair Hfa) 90 MCG HFA.AER.AD 2 PUF INH Q4-6 PRN PRN COPD Amiodarone HCl 200 MG TABLET 200 MG PO DAILY HEART Amlodipine Besylate 5 MG TABLET 5 MG PO DAILY HEART HEALTH (Reported) Apixaban (Eliquis) 5 MG TABLET 5 MG PO BID BLOOD THINNER Aspirin (Ecotrin*) 81 MG TABLET.DR 81 MG PO DAILY HEART HEALTH (Reported) Budesonide/Formoterol Fumarate (Symbicort 160-4.5 Mcg Inhaler) 160 MCG-4.5 MCG/ ACTUATION HFA.AER.AD 2 PUF INH BID COPD Hydrochlorothiazide 12.5 MG CAPSULE 1 CAP PO DAILY bp (Reported) Losartan Potassium 50 MG TABLET 50 MG PO DAILY HIGH BLOOD PRESSURE Metoprolol Tartrate (Lopressor) 50 MG TABLET 25 MG PO BID HIGH BLOOD PRESSURE (Reported) Omeprazole 20 MG TABLET.DR 20 MG PO DAILY ACID REFLUX Tamsulosin HCl (Flomax) 0.4 MG CAP.ER.24H 0.4 MG PO DAILY urinary retention Vit B12/FA/Pyridoxine HCl/Aa15 (Glycotrol Capsule) 500 MCG-400 MCG-10 MG-400 MG CAPSULE 100 MCG PO DAILY ANEMIA (Reported) Vit C/Hesperidin/Bioflavonoids (Grande-C 500 Tablet) 500 MG-100 MG-100 MG TABLET 500 MG PO DAILY IMMUNE SUPPORT (Reported) Vit D3 & K/Berberine HCl/Hops (Ostera Tablet) 500 UNIT-500 MCG-90 MG-370 MG TABLET 1,000 UNITS PO DAILY HEART HEALTH (Reported) Review of Systems Review of Systems Constitutional: Reports: see HPI. Past History Travel History Traveled to [place] past 21 day No Medical History Blood Transfusion Hx: Yes Neurological: NONE EENT: NONE Cardiovascular: CAD, hypertension, hyperlipidemia, paroxysmal atrial fibrillation. Saccular aneurysms of thoracic aortic arch, patient has refused any intervention. Respiratory: bronchitis, COPD Gastrointestinal: NONE Hepatic: NONE Renal: per the patient he also has bladder cancer, follows up with Dr. Sigala, she suggested surgical treatment but patient has refused. Musculoskeletal: NONE Psychiatric: NONE Endocrine: NONE Blood Disorders: NONE Cancer(s): basal cell carcinoma (of the nose), pancreatic cancer, renal cancer ( bladder), PROSTATE CA BLADDER CA [employer] PERFORMER/Reproductive: NONE Surgical History Surgical History: ANGIOPLASTY IN GALLBLADDER REMOVAL Family History Relations & Conditions If Any: Relation not specified for: *No pertinent family history Psychosocial History Where Do You Live? Home Services at Home: None Smoking Status: Former Smoker Exam & Diagnostic Data Last 24 Hrs of Vital Signs/I&O Vital Signs Date Time Temp Pulse Resp B/P Pulse O2 O2 Flow FiO2 Ox Delivery Rate 06/03 1002 140/50 06/03 1000 140/50 06/03 0637 97.5 60 18 140/50 96 Nasal 3.0L Cannula 06/03 0636 120/80 06/03 0450 Nasal 3.0L Cannula 06/03 0341 97 Nasal 3.0L Cannula 06/03 0158 97.9 76 22 139/63 97 Nasal 3.0L Cannula 06/03 0114 92 Nasal 3.0L Cannula 06/02 2334 100 Aerosol 7.0L Mask 06/02 2333 100 Non 6.0L ReBreather 06/02 2326 97.7 58 24 166/96 100 Non 6.0L ReBreather Intake & Output 06/03 1600 06/03 0800 06/03 0000 Intake Total 370 Output Total 450 Balance -450 370 Intake, IV 270 Intake, Oral 100 Output, Urine 450 Patient 140 lb 145 lb Weight Last 48 Hrs of Labs/Kushal: Laboratory Tests 06/03/16 0920: Urine Osmolality 259 L, Ur Random Creatinine Pending, Ur Random Sodium Pending, Ur Random Potassium Pending, Fraction Sodium Excret Pending 06/03/16 0710: Troponin I Cancelled 06/03/16 0710: Anion Gap 8, Estimated GFR > 60, BUN/Creatinine Ratio 11.1, Troponin I < 0.01, CBC w Diff MAN DIFF ORDERED, RBC 3.94 L, MCV 95.3 H, MCH 32.3 H, RDW 13.8, MPV 9.3, Gran % 94.3 H, Lymphocytes % 5.3 L, Monocytes % 0.4 L, Eosinophils % 0, Basophils % 0 L, Absolute Granulocytes 4.8, Absolute Lymphocytes 0.3 L, Absolute Monocytes 0 L, Absolute Eosinophils 0, Absolute Basophils 0, Platelet Estimate VERIFIED BY SMEAR, Normocytic RBCs VERIFIED, Normochromic RBCs VERIFIED , PUBS MCHC 33.8 06/02/16 2353: Anion Gap 6, Estimated GFR > 60, BUN/Creatinine Ratio 12.2, Glucose 115 H, Serum Osmolality 258 L, Calcium 8.7, Total Bilirubin 0.7, AST 34, ALT 42, Alkaline Phosphatase 119, Troponin I < 0.01, Chy-K-Etrhpkgoqti Pept 720 H, Total Protein 6.0 L, Albumin 3.5, Globulin 2.5, Albumin/Globulin Ratio 1.4, Amylase < 30 L, Lipase 126, CBC w Diff MAN DIFF ORDERED, RBC 4.01 L, MCV 95.2 H, MCH 32.1 H, RDW 13.9, MPV 8.6, Gran % 63.8, Lymphocytes % 14.5 L, Monocytes % 14.0 H, Eosinophils % 7.0 H, Basophils % 0.7, Absolute Granulocytes 6.6 H, Segmented Neutrophils 65, Absolute Lymphocytes 1.5, Lymphocytes 17 L, Monocytes 8, Absolute Monocytes 1.4 H, Eosinophils 7 H, Absolute Eosinophils 0.7, Basophils 3 H, Absolute Basophils 0.1, Platelet Estimate ADEQUATE, Normocytic RBCs VERIFIED, Normochromic RBCs VERIFIED, PUBS MCHC 33.7, Fld Total RBCs Counted 100 06/02/16 2340: pH 7.41, pCO2 42, pO2 151 H, HCO3 26, ABG O2 Sat (Measured) 98.0, P-50 (Temp Corrected) Y, Carboxyhemoglobin 0.3 L, O2 Concentration % 9 LPM, Temperature 97.7, O2 Delivery Method A/M W/ NEB, Phlebotomy Draw Site RIGHT RADIAL Assessment/Plan Impression/Plan: Physical Exam General Appearance Alert, Oriented X3, Cooperative, Mild Distress Skin several hyperkeratotic skin lesions in the posterior trunk HEENT Atraumatic, PERRLA, EOMI, Mucous Membr. moist/pink Neck Supple, JVD + Cardiovascular Normal S1, Normal S2 Lungs end expiratory wheezing, bilateral and scattered rhonchi present Abdomen Normal Bowel Sounds, Soft, No Tenderness Neurological Normal Speech, Strength at 5/5 X4 Ext, Normal Tone, Sensation Intact, Cranial Nerves 3-12 NL Extremities No Clubbing, No Cyanosis, 3+ pitting edema bilaterally in lower extremities Vascular Normal Pulses, Pulses Symmetrical IMPRESSION This is a gentleman with history of 40 pack smoking history, quit more than 10 years ago, ischemic heart disease, previous alcohol use, diastolic heart disease , hiatal hernia with Zenker's diverticulum, severe COPD, previous history of prostate cancer, ischemic heart disease with previous angioplasty, significant aortic aneurysm versus contained dissection managed medically, previous urinary retention with remote history of prostate ca, now comes in with * Acute shortness of breath, wheezing related to acute severe COPD exacerbation with hypoxemia with mild hypoxemic respiratory failure. 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 He is a poor surgical candidate. * Significant hyponatremia, SIADH. * Patient in sinus rhythm with history of Paroxysmal atrial fibrillation. Patient on eloquis and amiodarone * On moderate to high dose beta tricia which could precipitate wheezing but however he seems to be tolerating the present dose. We will continue that as he has a significant aortic dilatation versus aneurysm. * Previous history of prostate cancer with BPH. * Hypertension. * Remote history of alcohol, but has not been drinking lately. RECOMMENDATION * Change intravenous steroids to prednisone 50 mg daily and slow taper from tomorrow. * Sputum culture. * Flu swab. * Change antibiotics to by mouth Augmentin from tomorrow. * Fluid restriction, watch his sodium, Gentle diuresis, keep potassium more than 4 * Discontinue intravenous Ativan use Ativan 0.5 mg when necessary patient has not been drinking for months. * Continue his Symbicort. * Start Spiriva 1 puff daily upon discharge. * Start nebulizer therapy around the clock 3 times a day with DuoNeb, can be increased to every 6 hours [id number]. If he continues to wheeze Consult Acknowledgment - Thank you for your consult request.
--- NOTE | 2016-06-03 13:08 | Cons- Cardiology ---
General Information and HPI Consulting Request Date of Consult: 06/03/16 Requested By: BRANDIN TURNER MD Reason for Consult: Increasing shortness of breath in a man with both lung and heart disease. Source of Information: patient, old records Exam Limitations: no limitations History of Present Illness: Zarina Sheikh is currently an 86-year-old man who has a history of myocardial infarction in 1991. He apparently had angioplasty at that time, but records were never available regarding this event. I followed him for about 10 years and then saw him again in 2011 when he had a near syncopal episode and was hospitalized at [facility]. At that time the workup was negative. He was seen in the office by me in Mar 2014 at which time he was stable, but his blood pressure was somewhat elevated. At his previous visit I had increased his amlodipine to 5 mg daily from 2.5. Zarina had a complicated hospitalization from 02/25/2016 to 03/04/2016. He came in basically with exacerbation of COPD and bronchitis. He developed chest pain in the hospital but had negative troponins. 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 Dr. Interiano saw him for this and recommended further evaluation, but Mr. Sheikh declined at the time and has continued to come decline evaluation of this. The patient also developed intermittent periods of atrial fibrillation while in the hospital and was started on anticoagulation and amiodarone. He was discharged on amiodarone 200 mg BID. In addition, he developed urinary retention and failed removal of the Muro catheter and went home with a Muro. Dusty apparently now has a bladder tumor and also probably prostate cancer. The Muro has been removed. There is a question of whether he is going to have a TURBP in the future for this. He is currently on amiodarone 200 mg daily, omeprazole, Eliquis 5 mg twice a day, losartan was stopped, his Lopressor was lowered from 50 mg to 25 mg twice a day, his hydrochlorothiazide was decreased from 12.5 mg daily. All of these were done by Dr. Small about 2 months ago. Dusty now presents with increasing shortness of breath and wheezing and is thought to have exacerbation of COPD. He is also having some ankle edema. He has not had any palpitations. He is in sinus rhythm on his EKGs. Allergies/Medications Allergies: Coded Allergies: NO KNOWN ALLERGIES (01/24/12) Home Med List: Albuterol Sulfate (Proair Hfa) 90 MCG HFA.AER.AD 2 PUF INH Q4-6 PRN PRN COPD Amiodarone HCl 200 MG TABLET 200 MG PO DAILY HEART Amlodipine Besylate 5 MG TABLET 5 MG PO DAILY HEART HEALTH (Reported) Amoxicillin/Potassium Clav (Augmentin 875-125 Tablet) 875 MG-125 MG TABLET 1 TAB PO BID COPD exacerbation Apixaban (Eliquis) 5 MG TABLET 5 MG PO BID BLOOD THINNER Aspirin (Ecotrin*) 81 MG TABLET.DR 81 MG PO DAILY HEART HEALTH (Reported) Budesonide/Formoterol Fumarate (Symbicort 160-4.5 Mcg Inhaler) 160 MCG-4.5 MCG/ ACTUATION HFA.AER.AD 2 PUF INH BID COPD Hydrochlorothiazide 12.5 MG CAPSULE 1 CAP PO DAILY bp (Reported) Losartan Potassium 50 MG TABLET 50 MG PO DAILY HIGH BLOOD PRESSURE Metoprolol Tartrate (Lopressor) 50 MG TABLET 25 MG PO BID HIGH BLOOD PRESSURE (Reported) Omeprazole 20 MG TABLET.DR 20 MG PO DAILY ACID REFLUX Prednisone 10 MG TABLET 0 PO SI COPD exacerbation 06/06/16- 06/07/16 take 4 tabs daily 06/08/16-06/09/17 take 3 tabs daily 06/10/16- 06/11/16 take 2 tabs daily 06/12/16-06/13/16 take 1 tab daily then stop. Sodium Chloride 1 GRAM TABLET 1 TAB PO TID Hyponatremia Tamsulosin HCl (Flomax) 0.4 MG CAP.ER.24H 0.4 MG PO DAILY urinary retention Tiotropium [place] (Spiriva) 18 MCG CAP.W.DEV 1 CAP INH DAILY COPD Vit B12/FA/Pyridoxine HCl/Aa15 (Glycotrol Capsule) 500 MCG-400 MCG-10 MG-400 MG CAPSULE 100 MCG PO DAILY ANEMIA (Reported) Vit C/Hesperidin/Bioflavonoids (Grande-C 500 Tablet) 500 MG-100 MG-100 MG TABLET 500 MG PO DAILY IMMUNE SUPPORT (Reported) Vit D3 & K/Berberine HCl/Hops (Ostera Tablet) 500 UNIT-500 MCG-90 MG-370 MG TABLET 1,000 UNITS PO DAILY HEART HEALTH (Reported) Current Medications: Current Medications Sig/Jimbo Start time Last Medication Dose Route Stop Time Status Admin Acetaminophen 650 MG Q6P PRN 06/03 0315 AC PO Albuterol Sulfate 3 ML TID 06/03 1600 AC 06/03 INH 1059 Albuterol Sulfate 2 PUF Q4-6 PRN PRN 06/03 0315 AC INH Albuterol Sulfate 3 ML ONCE ONE 06/03 0115 DC 06/03 INH 06/03 0116 0114 Albuterol Sulfate 3 ML ONCE ONE 06/02 2330 DC 06/02 INH 06/02 2331 2334 Amiodarone HCl 200 MG BID 06/03 1000 DC PO Amiodarone HCl 200 MG DAILY 06/03 1000 AC 06/03 PO 1002 Amlodipine Besylate 5 MG DAILY 06/03 1000 AC 06/03 PO 1000 Amoxicillin/ 875 MG Q12 06/04 1000 AC Clavulanate Potassium PO Apixaban 5 MG BID 06/03 1000 AC 06/03 PO 1001 Aspirin Buffered 81 MG DAILY 06/03 1000 AC 06/03 PO 1001 Azithromycin 500 MG DAILY 06/03 1000 CAN Dextrose/Water 250 ML IV Azithromycin 500 MG ONCE ONE 06/02 2330 DC 06/03 Dextrose/Water 250 ML IV 06/03 0029 0029 Budesonide/ 2 PUF BID 06/03 1000 AC 06/03 Formoterol Fumarate INH 1002 Ceftriaxone Sodium 1,000 MG 0000 06/04 0000 DC IV Ceftriaxone Sodium 1,000 MG DAILY 06/03 1200 AC IV 06/04 0005 Ceftriaxone Sodium 0 .STK-MED ONE 06/03 0021 DC .ROUTE Ceftriaxone Sodium 1,000 MG ONCE ONE 06/02 2330 DC 06/03 IV 06/02 2331 0029 Furosemide 0 .STK-MED ONE 06/03 0335 DC IV Furosemide 20 MG ONCE ONE 06/03 0315 DC 06/03 IV 06/03 0316 0316 Ibuprofen 600 MG Q6P PRN 06/03 0315 CAN PO Ipratropium Alb[place] 2.5 ML ONCE ONE 06/02 2330 DC 06/02 INH 06/02 2331 2334 Lorazepam 0.5 MG DAILY PRN 06/03 1200 AC PO 06/10 1159 Lorazepam 0 Q1P PRN 06/03 0430 DC IV Losartan Potassium 50 MG DAILY 06/03 1000 AC 06/03 PO 1001 Methylprednisolone 40 MG Q8 06/03 0600 AC 06/03 IV 06/04 0000 0534 Metoprolol Tartrate 25 MG BID 06/03 2200 AC PO Metoprolol Tartrate 50 MG BID 06/03 1000 DC 06/03 PO 1001 Omeprazole 20 MG DAILY AC 06/03 0700 AC 06/03 PO 0534 Oxycodone/ 2 TAB Q6P PRN 06/03 0315 CAN Acetaminophen PO Prednisone 50 MG DAILY 06/04 1000 AC PO Tamsulosin HCl 0.4 MG DAILY 06/03 1000 AC 06/03 PO 1001 Review of Systems Review of Systems: He has no other complaints in the review of systems at this time. Past History Travel History Traveled to [place] past 21 day No Medical History Blood Transfusion Hx: Yes Neurological: NONE EENT: NONE Cardiovascular: CAD, hypertension, hyperlipidemia, paroxysmal atrial fibrillation. Saccular aneurysms of thoracic aortic arch, patient has refused any intervention. Respiratory: bronchitis, COPD Gastrointestinal: NONE Hepatic: NONE Renal: per the patient he also has bladder cancer, follows up with Dr. Sigala, she suggested surgical treatment but patient has refused. Musculoskeletal: NONE Psychiatric: NONE Endocrine: NONE Blood Disorders: NONE Cancer(s): basal cell carcinoma (of the nose), pancreatic cancer, renal cancer ( bladder), PROSTATE CA BLADDER CA INTERVENTIONAL CARDIOLOGIST/Reproductive: NONE Surgical History Surgical History: ANGIOPLASTY IN GALLBLADDER REMOVAL Family History Relations & Conditions If Any: Relation not specified for: *No pertinent family history Psychosocial History Where Do You Live? Home Services at Home: None Smoking Status: Former Smoker Exam & Diagnostic Data Vital Signs and I&O Vital Signs Date Time Temp Pulse Resp B/P Pulse O2 O2 Flow FiO2 Ox Delivery Rate 06/03 1105 95 Nasal 3.0L Cannula 06/03 1002 140/50 06/03 1000 140/50 06/03 0637 97.5 60 18 140/50 96 Nasal 3.0L Cannula 06/03 0636 120/80 06/03 0450 Nasal 3.0L Cannula 06/03 0341 97 Nasal 3.0L Cannula 06/03 0158 97.9 76 22 139/63 97 Nasal 3.0L Cannula 06/03 0114 92 Nasal 3.0L Cannula 06/02 2334 100 Aerosol 7.0L Mask 06/02 233 100 Non 6.0L ReBreather 06/02 2326 97.7 58 24 166/96 100 Non 6.0L ReBreather Intake & Output 06/03 0800 06/03 0000 06/02 1600 06/02 0800 06/02 0000 Intake Total 370 Output Total 450 Balance -450 370 Intake, IV 270 Intake, Oral 100 Output, Urine 450 Patient 140 lb 145 lb Weight Physical Exam: On physical he looks uncomfortable and mildly dyspneic with audible wheezing HEENT exam is normal Neck veins not distended Carotids normal Chest moderate expiratory wheezing and some rhonchi Heart soft heart sounds, regular rhythm no murmurs Extremities 1+ edema of the lower extremities Labs/Kushal Results: Laboratory Tests 06/03 06/03 06/03 0920 0710 0710 Chemistry Sodium (137 - 145 mmol/L) 124 L Potassium (3.5 - 5.1 mmol/L) 4.0 Chloride (98 - 107 mmol/L) 85 L Carbon Dioxide (22 - 30 mmol/L) 31 H Anion Gap (5 - 16) 8 BUN (9 - 20 mg/dL) 10 Creatinine (0.7 - 1.2 mg/dL) 0.9 Estimated GFR (>60 ml/min) > 60 BUN/Creatinine Ratio (7 - 25 %) 11.1 Troponin I (<0.11 ng/ml) Cancelled < 0.01 Hematology CBC w Diff MAN DIFF ORDERED WBC (4.8 - 10.8 /CUMM) 5.1 RBC (4.70 - 6.10 /CUMM) 3.94 L Hgb (14.0 - 18.0 G/DL) 12.7 L Hct (42 - 52 %) 37.5 L MCV (80.0 - 94.0 FL) 95.3 H MCH (27.0 - 31.0 PG) 32.3 H RDW (11.5 - 14.5 %) 13.8 Plt Count (130 - 400 /CUMM) 339 MPV (7.4 - 10.4 FL) 9.3 Gran % (42.2 - 75.2 %) 94.3 H Lymphocytes % (20.5 - 51.1 %) 5.3 L Monocytes % (1.7 - 9.3 %) 0.4 L Eosinophils % (0 - 5 %) 0 Basophils % (0.0 - 2.0 %) 0 L Absolute Granulocytes (1.4 - 6.5 /CUMM) 4.8 Absolute Lymphocytes (1.2 - 3.4 /CUMM) 0.3 L Absolute Monocytes (0.10 - 0.60 /CUMM) 0 L Absolute Eosinophils (0.0 - 0.7 /CUMM) 0 Absolute Basophils (0.0 - 0.2 /CUMM) 0 Platelet Estimate (ADEQUATE) VERIFIED BY SMEAR Normocytic RBCs VERIFIED Normochromic RBCs VERIFIED PUBS MCHC (33.0 - 37.0 G/DL) 33.8 Urines Urine Osmolality (300 - 1000 MOSM/KG) 259 L Ur Random Creatinine (mg/dL) 23.4 Ur Random Sodium (30 - 90 mmol/L) 76 Ur Random Potassium (mmol/L) 23.8 Fraction Sodium Excret (<1% %) 2.4 H 06/02 06/02 2353 2340 Blood Gas pH (7.35 - 7.45 PH) 7.41 pCO2 (35 - 45 TORR) 42 pO2 (80 - 100 TORR) 151 H HCO3 (21 - 28 MEQ/L) 26 ABG O2 Sat (Measured) (>96.0 %) 98.0 P-50 (Temp Corrected) Y Carboxyhemoglobin (1.5 - 5.0 %) 0.3 L O2 Concentration % 9 LPM Temperature (97.0 - 100.0 FARH) 97.7 O2 Delivery Method A/M W/ NEB Chemistry Sodium (137 - 145 mmol/L) 124 L Potassium (3.5 - 5.1 mmol/L) 3.8 Chloride (98 - 107 mmol/L) 88 L Carbon Dioxide (22 - 30 mmol/L) 30 Anion Gap (5 - 16) 6 BUN (9 - 20 mg/dL) 11 Creatinine (0.7 - 1.2 mg/dL) 0.9 Estimated GFR (>60 ml/min) > 60 BUN/Creatinine Ratio (7 - 25 %) 12.2 Glucose (65 - 99 mg/dL) 115 H Serum Osmolality (285 - 295 MOSM/KG) 258 L Calcium (8.4 - 10.2 mg/dL) 8.7 Total Bilirubin (0.2 - 1.3 mg/dL) 0.7 AST (17 - 59 U/L) 34 ALT (21 - 72 U/L) 42 Alkaline Phosphatase (< 127 U/L) 119 Troponin I (<0.11 ng/ml) < 0.01 [id number] Pept (<125 pg/mL) 720 H Total Protein (6.3 - 8.2 g/dL) 6.0 L Albumin (3.5 - 5.0 g/dL) 3.5 Globulin (1.9 - 4.2 gm/dL) 2.5 Albumin/Globulin Ratio (1.1 - 2.2 %) 1.4 Amylase (30 - 110 U/L) < 30 L Lipase (23 - 300 U/L) 126 Hematology CBC w Diff MAN DIFF ORDERED WBC (4.8 - 10.8 /CUMM) 10.4 RBC (4.70 - 6.10 /CUMM) 4.01 L Hgb (14.0 - 18.0 G/DL) 12.9 L Hct (42 - 52 %) 38.1 L MCV (80.0 - 94.0 FL) 95.2 H MCH (27.0 - 31.0 PG) 32.1 H RDW (11.5 - 14.5 %) 13.9 Plt Count (130 - 400 /CUMM) 320 MPV (7.4 - 10.4 FL) 8.6 Gran % (42.2 - 75.2 %) 63.8 Lymphocytes % (20.5 - 51.1 %) 14.5 L Monocytes % (1.7 - 9.3 %) 14.0 H Eosinophils % (0 - 5 %) 7.0 H Basophils % (0.0 - 2.0 %) 0.7 Absolute Granulocytes (1.4 - 6.5 /CUMM) 6.6 H Segmented Neutrophils (42.2 - 75.2 %) 65 Absolute Lymphocytes (1.2 - 3.4 /CUMM) 1.5 Lymphocytes (20.5 - 51.1 %) 17 L Monocytes (1.7 - 9.3 %) 8 Absolute Monocytes (0.10 - 0.60 /CUMM) 1.4 H Eosinophils (0 - 5.0 %) 7 H Absolute Eosinophils (0.0 - 0.7 /CUMM) 0.7 Basophils (0.0 - 2.0 %) 3 H Absolute Basophils (0.0 - 0.2 /CUMM) 0.1 Platelet Estimate (ADEQUATE) ADEQUATE Normocytic RBCs VERIFIED Normochromic RBCs VERIFIED PUBS MCHC (33.0 - 37.0 G/DL) 33.7 Miscellaneous Phlebotomy Draw Site RIGHT RADIAL Other Body Source Fld Total RBCs Counted (%) 100 Diagnostic Data EKG Results 2 EKGs have been done. Both show sinus rhythm at a rate in the 60 range with borderline interventricular conduction delay and no acute changes. CXR Results PATIENT: ZARINA SHEIKH PRESENT AGE: 86 PATIENT ACCOUNT NO: [id number] : 30 LOCATION: [facility] ORDERING PHYSICIAN: CLAUDETTE MCCARTNEY MD SERVICE DATE: 06/02/16 EXAM TYPE: RAD - XRY-PORTABLE CHEST XRAY EXAMINATION: CHEST 1 VIEW CLINICAL INFORMATION: Dyspnea. COMPARISON: 03/17/2016. TECHNIQUE: An AP view of the chest is provided. FINDINGS: The cardiac silhouette is not enlarged. The mediastinal and hilar contours are unremarkable. There are neither pleural effusions nor pneumothoraces. There are no consolidations. The lungs are hyperinflated. The osseous structures are unremarkable. IMPRESSION: No evidence for acute disease. Lung hyperinflation. DICTATED BY: LLOYD WHARTON MD DATE/TIME DICTATED:06/03/1630 CALENDAR CONTROL CLERK BLOOD BANK:ISAB[facility]LE DATE/TIME TRANSCRIBED:06/03/1630 CONFIDENTIAL, DO NOT COPY WITHOUT APPROPRIATE AUTHORIZATION. <Electronically signed in Other Vendor System> SIGNED BY: LLOYD WHARTON MD 06/03/1640 Assessment/Plan Assessment/Plan Dusty comes in with another exacerbation of COPD. I don't think there is any component of congestive heart failure. He has not had any recurrence of atrial fibrillation clinically and is tolerating beta blockers and amiodarone well. I would continue these medications. His last echocardiogram was done fairly recently and showed good left ventricular systolic function and I don't think this needs to be repeated at this time. I think his peripheral edema is on the basis of local factors and perhaps some mild right heart failure, although his pulmonary artery pressure was not significantly elevated on his last echo. He can get intermittent diuretics as needed for this but I would not put him on chronic diuretic therapy at this time. Perhaps compression stockings would be useful. Please call if further cardiac input is needed. Copies To: GA NEWSOME,HADLEY Santiago. Consult Acknowledgment - Thank you for your consult request.
[2016-06-03 13:41] VITALS: BP 130/80
--- NOTE | 2016-06-03 21:43 | NUR ---
UPON ENTERING ROOM TO GIVE HS MEDS PT STATED TO THIS NURSE "SOMETHING ISNT RIGHT" VSS, BP 120/70, HR 68, 96% ON NC, RR 18, TEMP 97.4, FINGERSTICK IS 158, STATING DIFFICULTY BREATHING , BUT DENIES SOB, SCATTERED CRACKLES TO BILATERAL BASES. STATING " I FEEL FINE BUT WHEN I START TO FALL ASLEEP I SEEM TO GO INTO THIS SHAKING EPISODE" STATES THAT IT ISNT THE "REGULAR JERKING THAT CAN HAPPEN WHEN YOU FALL ASLEEP" PT APPEARS ANXIOUS/CONCERNED. CALL PLACED TO SAP CRM DEVELOPER AT THIS TIME TO COME EVAL PT. RESP AT BEDSIDE. PT RECIEVED NEB JUST PRIOR TO THIS. WILL CONTINUE TO MONITOR
--- NOTE | 2016-06-03 22:35 | NUR ---
assisted pt to chair at this time per request. pt received tylenol for c/o lower back pain previous to this, without relief. Then, call placed to summer internship to make aware, and toradol IV ordered and given. Pt states no relief. Stating that this pain began just tonight, was not previously painful today or yesterday. Pt voiding in urinal without issues, denies dysuria. States pain is in middle lower back, denies pain upon palpation of flank area. Call placed to summer internship to come eval pt at this time.
[2016-06-03 22:36] VITALS: BP 120/70
--- NOTE | 2016-06-03 22:52 | NUR ---
Awaiting for strategy intern to come eval patient at this time
[2016-06-04 02:04] VITALS: BP 144/60
[2016-06-04 06:01] VITALS: BP 128/60
--- NOTE | 2016-06-04 06:41 | PN- Housestaff ---
See Addendum Subjective Follow-up For: COPD exacerbation Bilateral lower extremity edema Subjective: Patient seen and examined at bedside this AM. He reports he had an episode of severe low back pain that is much improved after sitting in the chair. Review of Systems Constitutional: Denies: chills, fever. EENTM: Denies: blurred vision, visual changes, hearing changes, nasal congestion. Cardiovascular: Denies: chest pain, palpitations. Respiratory: Reports: cough, short of breath. Gastrointestinal: Denies: abdominal pain, constipation, vomiting. Genitourinary: Denies: dysuria. Musculoskeletal: Reports: back pain. Skin: Denies: lesions. Neurological/Psychological: Denies: headache. Objective Last 24 Hrs of Vital Signs/I&O Vital Signs Date Time Temp Pulse Resp B/P Pulse O2 O2 Flow FiO2 Ox Delivery Rate 06/04 0940 98.0 70 18 128/60 06/04 0940 98.0 70 18 128/60 06/04 0940 98.0 70 18 128/60 06/04 0940 98.0 70 18 128/60 06/04 0940 98.0 70 18 128/60 06/04 0924 95 Nasal 3.0L Cannula 06/04 0800 95 Nasal 2.0L Cannula 06/04 0601 98.0 70 18 128/60 95 Nasal Cannula / 0204 70 20 144/60 93 Nasal 3.0L Cannula 06/04 0000 96 Nasal 3.0L Cannula 06/03 2236 97.4 68 18 120/70 96 Nasal Cannula 06/03 2124 68 102/60 06/03 1930 95 Nasal 3.0L Cannula 06/03 1600 Nasal 3.0L Cannula 06/03 1341 97.4 64 18 130/80 94 Nasal 3.0L Cannula Intake & Output 06/04 1600 06/04 0800 02/ 0000 Intake Total 120 600 Output Total Balance 120 600 Intake, Oral 120 600 Number 0 Bowel Movements Physical Exam General Appearance: Alert, Oriented X3, Cooperative, No Acute Distress Other Physical Findings: Skin: Noted hyperkeratotic skin lesions on back HEENT: Atraumatic, PERRLA, EOMI, Mucous Membr. moist/pink Neck: Supple Cardiovascular: Normal S1, Normal S2 Lungs: Wheezing present bilaterally, basal rhonchi noted. Abdomen: Normal Bowel Sounds, Soft, No Tenderness, No Hepatospenomegaly, No Masses Neurological: Normal Speech, Normal Tone, Sensation Intact Extremities: No Clubbing, No Cyanosis, 2-3+ pitting edema bilaterally. Vascular: Pulses Symmetrical Current Medications: Current Medications Sig/Jimbo Start time Last Medication Dose Route Stop Time Status Admin Acetaminophen 650 MG Q6P PRN 06/03 0315 AC 06/03 PO 1957 Albuterol Sulfate 3 ML TID 06/03 1600 AC 06/04 INH 0924 Albuterol Sulfate 2 PUF Q4-6 PRN PRN 06/03 0315 AC 06/04 INH 0556 Amiodarone HCl 200 MG DAILY 06/03 1000 AC 06/04 PO 0940 Amlodipine Besylate 5 MG DAILY 06/03 1000 AC 06/04 PO 0940 Amoxicillin/ 875 MG Q12 06/03 2200 AC 06/04 Clavulanate Potassium PO 1054 Apixaban 5 MG BID 06/03 1000 AC 06/04 PO 0941 Aspirin Buffered 81 MG DAILY 06/03 1000 AC 06/04 PO 0940 Budesonide/ 2 PUF BID 06/03 1000 AC 06/04 Formoterol Fumarate INH 0941 Ceftriaxone Sodium 1,000 MG 0000 06/04 0000 DC IV Ceftriaxone Sodium 1,000 MG 2200 06/03 2200 CAN IV Ceftriaxone Sodium 1,000 MG DAILY 06/03 1200 DC IV 06/04 0005 Ketorolac 15 MG ONE ONE 06/03 2145 CAN Tromethamine IM 06/03 2146 Ketorolac 15 MG ONCE ONE 06/03 2145 DC 06/03 Tromethamine IV 06/03 2146 2152 Lorazepam 0.5 MG DAILY PRN 06/03 1200 AC 06/03 PO 06/10 1159 2257 Lorazepam 0 Q1P PRN 06/03 0430 DC IV Losartan Potassium 50 MG DAILY 06/03 1000 AC 06/04 PO 0940 Melatonin 5 MG AT BEDTIME 06/03 2200 AC 06/03 PO 2234 Methylprednisolone 40 MG Q8 06/03 0600 DC 06/03 IV 06/04 0000 2124 Metoprolol Tartrate 25 MG BID 06/03 2200 AC 06/04 PO 0940 Omeprazole 20 MG DAILY AC 06/03 0700 AC 06/04 PO 0555 Patient Medication 1 ED .STK-MED ONE 06/03 1335 DC Teaching ED 06/03 1336 Prednisone 50 MG DAILY 06/04 1000 AC 06/04 PO 0940 Sodium Chloride 1,000 MG TID 06/03 2200 AC 06/04 PO 0941 Tamsulosin HCl 0.4 MG DAILY 06/03 1000 AC 06/04 PO 0940 Last 24 Hrs of Lab/Kushal Results Last 24 Hrs of Labs/Mics: Laboratory Tests 06/04/16 0740: Anion Gap 7, Estimated GFR > 60, BUN/Creatinine Ratio 16.4 06/03/16 1810: Anion Gap 8, Estimated GFR > 60, BUN/Creatinine Ratio 13.6 Microbiology 06/03 1146 LOWER RESP: Respiratory Culture - COLB 06/03 1146 LOWER RESP: Gram Stain - COLB Assessment/Plan Assessment: Mr. Sheikh is a pleasant 86 year old male with PMH MD in 1991 s/p angioplasty, HTN, diastolic heart failure, saccular aortic aneurysm, paroxysmal atrial fibrillation on eliquis and amiodarone, COPD bronchitis on 2 L home O2 followed by Dr. Bonner, hiatal hernia with Zenker's diverticulum, prior tobacco abuse of greater than 40 years (quit >10 years ago) and prostate cancer who presented to [place] on 06/03/16 with chief complaint of acute worsening shortness of breath. Patient endorsed acutely worsening shortness of breath in the 2 days prior to admission that was associated with wheezing, cough productive of white sputum, and bilateral lower extremity edema worsening for over 1 month. Patient currently denies fever, chills, dizziness, chest pain, palipations, abdominal pain, diarrhea or dysuria. In the ED: Vital signs show T 97.7, HR 58, RR 24, BP 166/96 and O2 saturation of 100 % on non-rebreather. Labs showed WBC count 10.4, hemoglobin 12.9, hematocrit 38.1, platelet count 320. ABGs shows pH of 7.41, PCO2 42, PO2 151. BEP was signficant for sodium 124, potassium 3.8, chloride 88, BUN 11, creatinine 0.9, glucose 115, troponins less than 0.01 and proBNP 720. EKG showed prolonged QTC, no acute ST T-wave changes. CXR was done which was negative for acute disease but did show lung hyperinflation. Patient was admitted to the general medicine floor and the following is the management: 1. Acute on chronic respiratory failure secondary to COPD exacerbation * Provide supplemental O2 to keep O2 sat >92%, do not drop below patient's home 2L * Noted severe wheezing, accessory muscle use on admission, CXR showed lung hyperinflation * Pulm consult with Dr. Bonner placed and appreciated * IV solumedrol switched to PO prednisone 50 mg daily starting today * Patient switched to PO Augmentin 875 mg Q12 today * Albuterol and ipratropium nebulizer TID and PRN * F/U blood and LRC * Quick flu negative * PT evaluated patient today and suggests home PT 2. Hyponatremia * Possibly related to COPD vs SIADH * BEP this AM shows Na 124 * Patient started on NaCl tablets 1g TID last night as his Na dropped from 124 to 122, continue today * Diet changed from heart healthy to normal to increase Na intake * Continue 1000 mL fluid restruction * Hold off on lasix for now * UA sent this AM, follow up spec gravity 3. Paroxysmal atrial fibrillation with history of CAD s/p angioplasty and B/L LE edema * Continue eliquis 5 mg PO BID, ASA 81 mg PO daily * Lopressor 25 mg PO BID, amiodarone 200 mg PO daily, losartan 50 mg PO daily, amlodipine 5 mg PO daily * Cardiology consult placed and appreciated * Dr. Cordoba suggested that lower extremity edema is not likely 2/2 CHF exacerbation as recent echo showed good LV systolic function * No need for scheduled lasix, may provide intermittent lasix as needed * Compression stockings for edema with LE elevation 4. History of alcohol use * Patient currently abstaining from alcohol * CIWA score discontinued * However, we have ordered 0.5 mg PO daily PRN ativan as needed for anxiety/ agitation 5. BPH * Continue 0.4 mg PO daily DNR/DNI Diet: Regular with 1000 mL fluid restriction Mild pain pathway DVTP: Eliquis Problem List: 1. COPD (chronic obstructive pulmonary disease) 2. Paroxysmal atrial fibrillation 3. CAD (coronary artery disease) 4. HTN (hypertension) 5. COPD exacerbation Pain Ratin Pain Location: Low back Pain Goal: Remain pain free Pain Plan: Tylenol for mild pain. Tomorrow's Labs & Rationales: BEP (monitor in setting of severe hyponatremia)
--- NOTE | 2016-06-04 11:11 | PN- Pulmonary ---
Subjective HPI/Critical Care Issues: Doing well no sig wheezing ros neg Objective Current Medications: Current Medications Sig/Jimbo Start time Last Medication Dose Route Stop Time Status Admin Acetaminophen 650 MG Q6P PRN 06/03 0315 AC 06/03 PO 1957 Albuterol Sulfate 3 ML TID 06/03 1600 AC 06/04 INH 0924 Albuterol Sulfate 2 PUF Q4-6 PRN PRN 06/03 0315 AC 06/04 INH 0556 Amiodarone HCl 200 MG DAILY 06/03 1000 AC 06/04 PO 0940 Amlodipine Besylate 5 MG DAILY 06/03 1000 AC 06/04 PO 0940 Amoxicillin/ 875 MG Q12 06/03 2200 AC 06/04 Clavulanate Potassium PO 1054 Apixaban 5 MG BID 06/03 1000 AC 06/04 PO 0941 Aspirin Buffered 81 MG DAILY 06/03 1000 AC 06/04 PO 0940 Budesonide/ 2 PUF BID 06/03 1000 AC 06/04 Formoterol Fumarate INH 0941 Ceftriaxone Sodium 1,000 MG 0000 06/04 0000 DC IV Ceftriaxone Sodium 1,000 MG 2200 06/03 2200 CAN IV Ceftriaxone Sodium 1,000 MG DAILY 06/03 1200 DC IV 06/04 0005 Ketorolac 15 MG ONE ONE 06/03 2145 CAN Tromethamine IM 06/03 2146 Ketorolac 15 MG ONCE ONE 06/03 2145 DC 06/03 Tromethamine IV 06/03 2146 2152 Lorazepam 0.5 MG DAILY PRN 06/03 1200 AC 06/03 PO 06/10 1159 2257 Lorazepam 0 Q1P PRN 06/03 0430 DC IV Losartan Potassium 50 MG DAILY 06/03 1000 AC 06/04 PO 0940 Melatonin 5 MG AT BEDTIME 06/03 2200 AC 06/03 PO 2234 Methylprednisolone 40 MG Q8 06/03 0600 DC 06/03 IV 06/04 0000 2124 Metoprolol Tartrate 25 MG BID 06/03 2200 AC 06/04 PO 0940 Omeprazole 20 MG DAILY AC 06/03 0700 AC 06/04 PO 0555 Patient Medication 1 ED .STK-MED ONE 06/03 1335 DC Teaching ED 06/03 1336 Prednisone 50 MG DAILY 06/04 1000 AC 06/04 PO 0940 Sodium Chloride 1,000 MG TID 06/03 2200 AC 06/04 PO 0941 Tamsulosin HCl 0.4 MG DAILY 06/03 1000 AC 06/04 PO 0940 Vital Signs & I&O Last 24 Hrs of Vitals and I&O: Vital Signs Date Time Temp Pulse Resp B/P Pulse O2 O2 Flow FiO2 Ox Delivery Rate 06/04 0940 98.0 70 18 128/60 / 0940 98.0 70 18 128/60 / 0940 98.0 70 18 128/60 / 0940 98.0 70 18 128/60 06/04 0940 98.0 70 18 128/60 06/04 0924 95 Nasal 3.0L Cannula 06/04 0800 95 Nasal 2.0L Cannula 06/04 0601 98.0 70 18 128/60 95 Nasal Cannula 06/04 0204 70 20 144/60 93 Nasal 3.0L Cannula 06/04 0000 96 Nasal 3.0L Cannula 06/03 2236 97.4 68 18 120/70 96 Nasal Cannula 06/03 2124 68 102/60 06/03 1930 95 Nasal 3.0L Cannula 06/03 1600 Nasal 3.0L Cannula 06/03 1341 97.4 64 18 130/80 94 Nasal 3.0L Cannula 06/03 1105 95 Nasal 3.0L Cannula Intake & Output 06/04 1600 06/04 0800 06/04 0000 Intake Total 120 600 Output Total Balance 120 600 Intake, Oral 120 600 Number 0 Bowel Movements Impression/Plan Impression/Plan Impression/Plan: Physical Exam General Appearance Alert, Oriented X3, Cooperative, Mild Distress Skin several hyperkeratotic skin lesions in the posterior trunk HEENT Atraumatic, PERRLA, EOMI, Mucous Membr. moist/pink Neck Supple, JVD + Cardiovascular Normal S1, Normal S2 Lungs end expiratory wheezing, bilateral and scattered rhonchi present Abdomen Normal Bowel Sounds, Soft, No Tenderness Neurological Normal Speech, Strength at 5/5 X4 Ext, Normal Tone, Sensation Intact, Cranial Nerves 3-12 NL Extremities No Clubbing, No Cyanosis, 3+ pitting edema bilaterally in lower extremities Vascular Normal Pulses, Pulses Symmetrical IMPRESSION This is a gentleman with history of 40 pack smoking history, quit more than 10 years ago, ischemic heart disease, previous alcohol use, diastolic heart disease , hiatal hernia with Zenker's diverticulum, severe COPD, previous history of prostate cancer, ischemic heart disease with previous angioplasty, significant aortic aneurysm versus contained dissection managed medically, previous urinary retention with remote history of prostate ca, now comes in with * REsolving acute severe COPD exacerbation with hypoxemia with mild hypoxemic respiratory failure. 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 He is a poor surgical candidate. * Significant hyponatremia, SIADH. * Patient in sinus rhythm with history of Paroxysmal atrial fibrillation. Patient on eloquis and amiodarone * On moderate to high dose beta tricia which could precipitate wheezing but however he seems to be tolerating the present dose. We will continue that as he has a significant aortic dilatation versus aneurysm. * Previous history of prostate cancer with BPH. * Hypertension. * Remote history of alcohol, but has not been drinking lately. RECOMMENDATION * Prednisone 50 mg daily and slow taper from tomorrow. * Sputum culture. * Augmentinbd. * Fluid restriction, watch his sodium, Gentle diuresis, keep potassium more than 4 * Continue his Symbicort. * Start Spiriva 1 puff daily upon discharge. * DuoNeb prn
[2016-06-04 15:19] VITALS: BP 112/58
[2016-06-04] MEDS ORDERED: PREDNISONE10 M2 PO (15:25)
[2016-06-04] MEDS ORDERED: AUGMENTIN 875-1 EACH PO (15:26)
[2016-06-04] MEDS ORDERED: SPIRIVA18 MCG INH (15:29)
--- NOTE | 2016-06-04 15:31 | Patient Discharge Instructions ---
Discharge Instructions General Discharge Information You were seen/treated for: COPD exacerbation Hyponatremia Special Instructions: Please follow up with your PCP within 7 days of discharge. Please follow up with Dr. Bonner within 2 weeks of discharge. Please maintain a fluid restriction of no more than 1200mls per day Please take all medications as prescribed, we have made changes. Please follow up with your amusement machine mechanic Dr. Cordoba as needed for continued cardiac care. Diet Recommended Diet: Heart Healthy Activity Activity Self Limited: Yes Acute Coronary Syndrome Inclusion Criteria At DC or during hospital stay patient has or had the following: ACS DIAGNOSIS No Discharge Core Measures Meds if any: Prescribed or Continued at Discharge Meds if any: NOT Prescribed or Continued at Discharge Congestive Heart Failure Inclusion Criteria At DC or during hospital stay patient has or had the following: CHF DIAGNOSIS No Discharge Core Measures Meds if any: Prescribed or Continued at Discharge Meds if any: NOT Prescribed or Continued at Discharge Cerebrovascular accident Inclusion Criteria At DC or during hospital stay patient has or had the following: CVA/TIA Diagnosis No Discharge Core Measures Meds if any: Prescribed or Continued at Discharge Meds if any: NOT Prescribed or Continued at Discharge Venous thromboembolism Inclusion Criteria VTE Diagnosis No VTE Type NONE VTE Confirmed by (Test) NONE Discharge Core Measures - Per Current guidelines, there needs to be overlap - treatment for the first 5 days of Warfarin therapy. - If discharged on Warfarin prior to 5 days of - overlap therapy, the patient will need to be - assessed for post discharge needs including - *Post discharge parental anticoagulation - *Warfarin and/or parental anticoagulation education - *Follow up date to check INR post discharge At least 5 days overlap therapy as Inpatient No Meds if any: Prescribed or Continued at Discharge Note: Overlap Therapy is Warfarin and Anticoagulant Meds if any: NOT Prescribed or Continued at Discharge
[2016-06-04] MEDS ORDERED: SODIUM CHLORIDE1 G2 PO (15:33)
[2016-06-04 22:39] VITALS: BP 128/58
[2016-06-05 06:49] VITALS: BP 130/58
--- NOTE | 2016-06-05 08:09 | PN- Housestaff ---
SHAI NEWSOME,HUGO 06/05/16 0809: Subjective Follow-up For: [facility] Review of Systems Constitutional: Reports: see HPI. Objective Last 24 Hrs of Vital Signs/I&O Vital Signs Date Time Temp Pulse Resp B/P Pulse O2 O2 Flow FiO2 Ox Delivery Rate 06/05 1034 95 Nasal 3.0L Cannula 06/05 0954 80 138/50 06/05 0800 Nasal 3.0L Cannula 06/05 0649 97.5 73 20 130/58 97 Nasal Cannula 06/04 2239 97.7 73 19 128/58 97 Nasal Cannula 06/04 2237 96 Nasal 3.0L Cannula 06/04 1857 96 Nasal 3.0L Cannula 06/04 1600 Nasal 3.0L Cannula Intake & Output 06/05 1600 06/05 0800 06/05 0000 Intake Total 400 130 250 Output Total 325 Balance 400 130 -75 Intake, IV 10 10 Intake, Oral 400 120 240 Number 1 2 Bowel Movements Output, Urine 325 Physical Exam General Appearance: Alert, Oriented X3, Cooperative Other Physical Findings: Skin: Noted hyperkeratotic skin lesions on back HEENT: Atraumatic, PERRLA, EOMI, Mucous Membr. moist/pink Neck: Supple Cardiovascular: Normal S1, Normal S2 Lungs: Wheezing present bilaterally, basal rhonchi noted. Abdomen: Normal Bowel Sounds, Soft, No Tenderness, No Hepatospenomegaly, No Masses Neurological: Normal Speech, Normal Tone, Sensation Intact Extremities: No Clubbing, No Cyanosis, 2-3+ pitting edema bilaterally. Vascular: Pulses Symmetrical Assessment/Plan Assessment: Mr. Sheikh is a pleasant 86 year old male with PMH CA in 1991 s/p angioplasty, HTN, diastolic heart failure, saccular aortic aneurysm, paroxysmal atrial fibrillation on eliquis and amiodarone, COPD bronchitis on 2 L home O2 followed by Dr. Bonner, hiatal hernia with Zenker's diverticulum, prior tobacco abuse of greater than 40 years (quit >10 years ago) and prostate cancer who presented to [place] on 06/03/16 with chief complaint of acute worsening shortness of breath. Patient endorsed acutely worsening shortness of breath in the 2 days prior to admission that was associated with wheezing, cough productive of white sputum, and bilateral lower extremity edema worsening for over 1 month. Patient currently denies fever, chills, dizziness, chest pain, palipations, abdominal pain, diarrhea or dysuria. In the ED: Vital signs show T 97.7, HR 58, RR 24, BP 166/96 and O2 saturation of 100 % on non-rebreather. Labs showed WBC count 10.4, hemoglobin 12.9, hematocrit 38.1, platelet count 320. ABGs shows pH of 7.41, PCO2 42, PO2 151. BEP was signficant for sodium 124, potassium 3.8, chloride 88, BUN 11, creatinine 0.9, glucose 115, troponins less than 0.01 and proBNP 720. EKG showed prolonged QTC, no acute ST T-wave changes. CXR was done which was negative for acute disease but did show lung hyperinflation. Patient was admitted to the general medicine floor and the following is the management: 1. Acute on chronic respiratory failure secondary to COPD exacerbation * Improvement in breathing and lung auscultation, patient is stable for discharge * IV solumedrol switched to PO prednisone 50 mg daily starting today * Patient switched to PO Augmentin 875 mg Q12 today * Albuterol and ipratropium nebulizer TID and PRN * PT evaluated patient today and suggests home PT 2. Hyponatremia * Possibly related to COPD vs SIADH * BEP this AM shows Na 124 * Patient given 3 day supply of sodium chloride 1 g daily with instruction to follow-up with primary care * Diet changed from heart healthy to normal to increase Na intake * Continue fluid restriction of 1200 mls 3. Paroxysmal atrial fibrillation with history of CAD s/p angioplasty and B/L LE edema * Continue eliquis 5 mg PO BID, ASA 81 mg PO daily * Lopressor 25 mg PO BID, amiodarone 200 mg PO daily, losartan 50 mg PO daily, amlodipine 5 mg PO daily 4. History of alcohol use * Patient currently abstaining from alcohol * CIWA score discontinued * However, we have ordered 0.5 mg PO daily PRN ativan as needed for anxiety/ agitation 5. BPH * Continue 0.4 mg PO daily DNR/DNI Diet: Regular with 1000 mL fluid restriction Mild pain pathway DVTP: Eliquis Problem List: 1. COPD exacerbation Pain Ratin Pain Location: none Pain Goal: Remain pain free Pain Plan: none Tomorrow's Labs & Rationales: none-discharge ALEK NEWSOME,BLANCA 06/05/16 1115: Attending MD Review Statement Attending Statement Attending MD Statement: examined this patient, discuss w/resident/PA/POULTRY SCIENTIST, agreed w/resident/PA/POULTRY SCIENTIST Attending Assessment/Plan: Patient sitting in chair. He is currently on 3 L of oxygen pH at home is usually on 2 L of oxygen. He has no new complaints and denies any difficulty breathing chest pain fever chills. He has occasional cough with expectoration of sputum once or twice a day. His vital signs have been stable. Chest exam shows bilateral decreased air entry and scattered crepitations. His sodium level has improved to 128. Assessment and plan * If okay with pulmonology patient can be discharged home on 3 L oxygen to be tapered at home * Decreased sodium and chloride to 1 g daily for 3 days * Continue fluid restriction to 1200 mL per day. * Do not resume hydrochlorothiazide upon discharge * Continue prednisone taper * Complete 5 days of antibiotics
[2016-06-05 09:54] VITALS: BP 138/50
[2016-06-05] MEDS ORDERED: SODIUM CHLORIDE1 G2 PO (10:46)
[2016-06-05] MEDS ORDERED: AUGMENTIN 875-1 EACH PO (11:47)
--- NOTE | 2016-06-05 14:45 | Discharge Summary ---
Visit Information Visit Dates Admission Date: 06/03/16 Discharge Date: 06/05/16 Hospital Course Course Attending Physician: RAYSHAWN NEWSOME,LIO Bennett Primary Care Physician: GA NEWSOME,HADLEY Santos Consulting Request: 1 Consulting Specialty: Pulmonary Disease Consulting Physician: Dr. Bonner Reason for Consult: COPD exacerbation Consulting Request: 2 Consulting Specialty: Cardiology Consulting Physician: Dr. Cordoba Reason for Consult: Right heart failure with bilateral lower extremity edema Hospital Course: Mr. Sheikh is a pleasant 86 year old male with PMH [place] in 1991 s/p angioplasty, HTN, diastolic heart failure, saccular aortic aneurysm, paroxysmal atrial fibrillation on eliquis and amiodarone, COPD bronchitis on 2 L home O2 followed by Dr. Bonner, hiatal hernia with Zenker's diverticulum, prior tobacco abuse of greater than 40 years (quit >10 years ago) and prostate cancer who presented to [place] on 06/03/16 with chief complaint of acute worsening shortness of breath. Patient endorsed acutely worsening shortness of breath in the 2 days prior to admission that was associated with wheezing, cough productive of white sputum, and bilateral lower extremity edema worsening for over 1 month. At time ofadmission, patient denied fever, chills, dizziness, chest pain, palipations, abdominal pain, diarrhea or dysuria. In the ED: Vital signs show T 97.7, HR 58, RR 24, BP 166/96 and O2 saturation of 100 % on non-rebreather. Labs showed WBC count 10.4, hemoglobin 12.9, hematocrit 38.1, platelet count 320. ABGs shows pH of 7.41, PCO2 42, PO2 151. BEP was signficant for sodium 124, potassium 3.8, chloride 88, BUN 11, creatinine 0.9, glucose 115, troponins less than 0.01 and proBNP 720. EKG showed prolonged QTC, no acute ST T-wave changes. CXR was done which was negative for acute disease but did show lung hyperinflation. Physical exam showed: Alert and oriented 3 but in mild distress and using accessory muscles for breathing Head atraumatic Neck supple with elevated JVD Heart muffled heart sound without any murmurs Chest loud wheezing with reduced air entry bilaterally Abdomen protuberant with normal bowel sounds Extremities showed 2+ bilateral lower extremity edema No Neurological deficit appreciated Patient was admitted to the general medicine floor and the following was the management: 1. Acute on chronic respiratory failure secondary to COPD exacerbation: Patient had increased O2 requirements on admission requiring non-rebreathing for a satisfactory O2 saturation and he was noted to use accessory muscles during his respirations. Initial CXR showed lung hyperinflation. Initial flu swab was negative for influenza. Blood and lower respiratory cultures were drawn and no growth was seen during his admission. Pulmonary consult with Dr. Bonner placed. IV solumedrol was started and slowly titrated down to PO prednsone. He was also initiated on IV ceftriaxone (no IV azithromycin as his QTC was prolonged. These antibiotics were eventually switched to PO augmentin as per recommendations from Dr. Bonner. TRC nebulizer treatments were continued TID and PRN. He was discharged with a new prescription for Spiriva 1 puff daily as well as with a prescription for augmentin 875 mg PO BID and a prednisone taper to complete after discharge. He was instructed to follow up closley with Dr. Bonner. 2. Hyponatremia: Patient was noted to be hyponatremic on admission to 124. This was below his normal sodium level that was noted to be in the lower 130's on prior lab work. Serum osmolality was low to 258 and urine osmolality was low to 259 with a high fractional excretion of sodium. His hydrochlorothiazide was held after obtaining a cardiology consult with Dr. Cordoba who did not beleive patient was in a CHF exacerbation (he noted patient's lower extremity edema was likely due to local factors). Patient's recent echo showed howed good left ventricular systolic function and was therefore not repeated. Even after discontinuation of the HCTZ, his Na levels continued to remain close to 124 and NaCl tablets were added to his daily regimen. After starting these tablets, patient's Na level was noted to trend up daily and he was discharged home on this medication. He was told to follow up with Dr. Cordoba as his HCTZ was held on discharge and patient may require another diuretic for his mild right heart failure. 3. Paroxysmal atrial fibrillation with history of CAD s/p angioplasty and B/L LE edema: Patient was continued on his home medications including eliquis 5 mg PO BID, ASA 81 mg PO daily, lopressor 25 mg PO BID, amiodarone 200 mg PO daily, losartan 50 mg PO daily and amlodipine 5 mg PO daily. s discussed above, his HCTZ was held after a consul with cardiology suggested no need for daily diuresis. We provided patient with compression stockings for lower extremity edema. 4. BPH: Patient was continued on his tamsulosin 0.4 mg PO daily. 5. Code status: DNR/DNI 6. DVT prophylaxis: Eliquis Complications: None. Allergies: Coded Allergies: NO KNOWN ALLERGIES (01/24/12) Significant Procedures: EXAMINATION: CHEST 1 VIEW CLINICAL INFORMATION: Dyspnea. COMPARISON: 03/17/2016. TECHNIQUE: An AP view of the chest is provided. FINDINGS: The cardiac silhouette is not enlarged. The mediastinal and hilar contours are unremarkable. There are neither pleural effusions nor pneumothoraces. There are no consolidations. The lungs are hyperinflated. The osseous structures are unremarkable. IMPRESSION: No evidence for acute disease. Lung hyperinflation. Disposition Summary Disposition Principal Diagnosis: Acute on chronic respiratory failure secondary to COPD exacerbation Hyponatremia Additional Diagnosis: Paroxysmal atrial fibrillation CAD s/p angioplasty B/L LE edema Right heart failure BPH Discharge Disposition: home health services Discharge Instructions General Discharge Information Code Status: Do Not Resucitate/Intubat Patient's Diet: Regular diet. Patient's Activity: Self-limited, as tolerated with walker. Follow-Up Instructions/Appts: Please follow up with your PCP within 7 days of discharge. Please follow up with Dr. Bonner within 2 weeks of discharge. Please maintain a fluid restriction of no more than 1200mls per day Please take all medications as prescribed, we have made changes. Please follow up with your hand bindery assembly worker Dr. Cordoba as needed for continued cardiac care. Medications at Discharge Discharge Medications: Stop taking the following medications: Hydrochlorothiazide (Hydrochlorothiazide) 12.5 MG CAPSULE ORAL DAILY Days = 28 Continue taking these medications: Amlodipine Besylate (Amlodipine Besylate) 5 MG TABLET 5 Milligram ORAL DAILY Comments: Last Taken: 06/05/16 Time: 09:45 AM Aspirin (Ecotrin*) 81 MG TABLET. 81 Milligram ORAL DAILY Comments: Last Taken: 06/05/16 Time: 09:45 AM Metoprolol Tartrate (Lopressor) 50 MG TABLET 25 Milligram ORAL TWICE DAILY Comments: Last Taken: 06/05/16 Time: 09:45 AM Vit D3 & K/Berberine HCl/Hops (Ostera Tablet) 500 UNIT-500 MCG-90 MG-370 MG TABLET 1,000 Units ORAL DAILY Comments: NOT GIVEN IN HOSPITAL Vit B12/FA/Pyridoxine HCl/Aa15 (Glycotrol Capsule) 500 MCG-400 MCG-10 MG-400 MG CAPSULE 100 Microgram ORAL DAILY Comments: NOT GIVEN IN HOSPITAL Vit C/Hesperidin/Bioflavonoids (Grande-C 500 Tablet) 500 MG-100 MG-100 MG TABLET 500 Milligram ORAL DAILY Comments: NOT GIVEN IN HOSPITAL Apixaban (Eliquis) 5 MG TABLET 5 Milligram ORAL TWICE DAILY Days = 30 Comments: Last Taken: 06/05/16 Time: 09:45 AM Budesonide/Formoterol Fumarate (Symbicort 160-4.5 Mcg Inhaler) 160 MCG-4.5 MCG/ ACTUATION HFA.AER.AD 2 Puff Inhale through mouth TWICE DAILY Qty = 1 Comments: Last Taken: 06/05/16 Time: 9:45 AM Omeprazole (Omeprazole) 20 MG TABLET.DR 20 Milligram ORAL DAILY Days = 30 Comments: Last Taken: 06/05/16 Time: 6:30 AM Albuterol Sulfate (Proair Hfa) 90 MCG HFA.AER.AD 2 Puff Inhale through mouth EVERY 4-6 HOURS NEEDED as needed for COPD Qty = 1 Comments: Last Taken: 06/04/16 Time: 1:30 PM Tamsulosin HCl (Flomax) 0.4 MG CAP.ER.24H 0.4 Milligram ORAL DAILY Days = 30 Comments: Last Taken: 06/05/16 Time: 9:45 AM Losartan Potassium (Losartan Potassium) 50 MG TABLET 50 Milligram ORAL DAILY Days = 30 Comments: Last Taken: 06/05/16 Time: 09:45 AM Start taking the following new medications: Sodium Chloride (Sodium Chloride) 1 GRAM TABLET 1 Tablet ORAL DAILY Qty = 3 No Refills Comments: Last Taken: 06/05/16 Time: 9:45 AM Amoxicillin/Potassium Clav (Augmentin 875-125 Tablet) 875 MG-125 MG TABLET 1 Tablet ORAL TWICE DAILY Qty = 8 No Refills Comments: Last Taken: 06/05/16 Time: 9:45 AM Prednisone (Prednisone) 10 MG TABLET 0 ORAL See Instructions Qty = 20 No Refills Instructions: 06/06/16- 06/07/16 take 4 tabs daily 06/08/16-06/09/17 take 3 tabs daily 06/10/16- 06/11/16 take 2 tabs daily 06/12/16-06/13/16 take 1 tab daily then stop. Comments: Last Taken: 06/05/16 Time: 9:45 AM Tiotropium [place]ade (Spiriva) 18 MCG CAP.W.DEV 1 Capsule Inhale through mouth DAILY Qty = 30 No Refills Comments: DID NOT RECEIVE WHILE IN HOSPITAL The following medications have been changed: Old: Amiodarone HCl (Amiodarone HCl) 200 MG TABLET 200 Milligram ORAL TWICE DAILY Days = 30 New: Amiodarone HCl (Amiodarone HCl) 200 MG TABLET 200 Milligram ORAL DAILY Days = 30 Comments: Last Taken: 06/05/16 Time: 09:45 AM Copies To: LOUISE NEWSOME,BLAYNE Bennett; GA NEWSOME,HADLEY Santos; PEDRO NEWSOME,HADELY Monroy Attending MD Review Statement Documenting Attending: RAYSHAWN NEWSOME,LIO Bennett Other Findings: Pt was seen by Dr Haile on day of discharge. I agree with the discharge plan.
== END 2016-06-05 14:16 | disposition home health service (06) | DRG 190 ==
LOC: ENRESERVTM → ENRESERVDT → ERH 23:19 → ENPENDDIS 06-03 03:14 → ERHI 06-03 03:14 → 2NA 06-03 03:14 → ERHI 06-03 05:33 → 2NA 06-03 05:37
PROVIDERS: Internal Medicine; Pediatrics; ADMIT Internal Medicine
DX: J44.1 Chronic obstructive pulmonary disease with (acute) exacerbation (principal); J96.21 Acute and chronic respiratory failure with hypoxia; I11.9 Hypertensive heart disease without heart failure; E22.2 Syndrome of inappropriate secretion of antidiuretic hormone; I48.91 Unspecified atrial fibrillation; Z79.01 Long term (current) use of anticoagulants; Z99.81 Dependence on supplemental oxygen; I25.10 Atherosclerotic heart disease of native coronary artery without angina pectoris; Z98.61 Coronary angioplasty status; Z87.891 Personal history of nicotine dependence; E78.5 Hyperlipidemia, unspecified; I48.0 Paroxysmal atrial fibrillation; I71.2 Thoracic aortic aneurysm, without rupture; Z85.828 Personal history of other malignant neoplasm of skin; Z85.51 Personal history of malignant neoplasm of bladder; Z85.46 Personal history of malignant neoplasm of prostate
CPT/HCPCS: 2NASP; 84133; 84300; 36415; 82436; 82570; 87040; 87070; 87804; 87804-59; 93005; 93010; 96365; 96375; 97116-GO; 97161-GP; J0456; J0696; J1885; J1940; J2920; J3490; J7060; J7512

== ENCOUNTER 2016-07-17 14:29 | Emergency (ER) | payer OTHER ==
[~2016-07-17] VITALS: Ht 165.1 cm; Wt 63.5 kg
[~2016-07-17 14:29] MED LIST changes: +HYDROCHLOROTH12.5 M3 PO; +SODIUM CHLORIDE1 G2 PO; +SPIRIVA18 MCG INH
--- NOTE | 2016-07-17 14:37 | ED GI/GU/ABDOMINAL COMPLAINT ---
History of Present Illness General Chief Complaint: Male Genitourinary Problems Stated Complaint: UNABLE TO URINATE X 1 DAY Source: patient, family, old records Exam Limitations: no limitations Allergies Coded Allergies: NO KNOWN ALLERGIES (01/24/12) Reconcile Medications Albuterol Sulfate (Proair Hfa) 90 MCG HFA.AER.AD 2 PUF INH Q4-6 PRN PRN COPD Amiodarone HCl 200 MG TABLET 200 MG PO DAILY HEART Amlodipine Besylate 5 MG TABLET 5 MG PO DAILY HEART HEALTH (Reported) Amoxicillin/Potassium Clav (Augmentin 875-125 Tablet) 875 MG-125 MG TABLET 1 TAB PO BID COPD exacerbation Apixaban (Eliquis) 5 MG TABLET 5 MG PO BID BLOOD THINNER Aspirin (Ecotrin*) 81 MG TABLET.DR 81 MG PO DAILY HEART HEALTH (Reported) Budesonide/Formoterol Fumarate (Symbicort 160-4.5 Mcg Inhaler) 160 MCG-4.5 MCG/ ACTUATION HFA.AER.AD 2 PUF INH BID COPD Losartan Potassium 50 MG TABLET 50 MG PO DAILY HIGH BLOOD PRESSURE Metoprolol Tartrate (Lopressor) 50 MG TABLET 25 MG PO BID HIGH BLOOD PRESSURE (Reported) Omeprazole 20 MG TABLET.DR 20 MG PO DAILY ACID REFLUX Prednisone 10 MG TABLET 0 PO SI COPD exacerbation 06/06/16- 06/07/16 take 4 tabs daily 06/08/16-06/09/17 take 3 tabs daily 06/10/16- 06/11/16 take 2 tabs daily 06/12/16-06/13/16 take 1 tab daily then stop. Sodium Chloride 1 GRAM TABLET 1 TAB PO DAILY LOW SODIUM Tamsulosin HCl (Flomax) 0.4 MG CAP.ER.24H 0.4 MG PO DAILY urinary retention Tiotropium [place] (Spiriva) 18 MCG CAP.W.DEV 1 CAP INH DAILY COPD Vit B12/FA/Pyridoxine HCl/Aa15 (Glycotrol Capsule) 500 MCG-400 MCG-10 MG-400 MG CAPSULE 100 MCG PO DAILY ANEMIA (Reported) Vit C/Hesperidin/Bioflavonoids (Grande-C 500 Tablet) 500 MG-100 MG-100 MG TABLET 500 MG PO DAILY IMMUNE SUPPORT (Reported) Vit D3 & K/Berberine HCl/Hops (Ostera Tablet) 500 UNIT-500 MCG-90 MG-370 MG TABLET 1,000 UNITS PO DAILY HEART HEALTH (Reported) Triage Note: PT STATES HE CAN'T URINATE AND HAS NOT BEEN ABLE TO SINCE YESTERDAY. THIS HAS HAPPEND TO PT ONE OTHER TIME. Triage Nurses Notes Reviewed? yes HPI: Patient is an 86-year-old male presents complaining of urinary retention. Patient reports he last urinated yesterday. Patient had coffee and a cup of tea this morning. Suprapubic pressure sensation is currently mild. Patient reports that he required a Muro catheter once before for urinary retention has seen Dr. Sigala previously. Patient denies fevers, chills, nausea, vomiting, back pain (JOANNE ARMIJO) Vital Signs & Intake/Output Vital Signs & Intake/Output Vital Signs Date Time Temp Pulse Resp B/P Pulse O2 O2 Flow FiO2 Ox Delivery Rate 07/17 1456 70 22 122/68 07/17 1435 97.3 60 18 90/45 92 Nasal Cannula Past History Travel History Traveled to [place] past 21 day No Medical History Any Pertinent Medical History? see below for history Neurological: NONE EENT: NONE Cardiovascular: CAD, hypertension, hyperlipidemia, paroxysmal atrial fibrillation. Saccular aneurysms of thoracic aortic arch, patient has refused any intervention. Respiratory: bronchitis, COPD Gastrointestinal: NONE Hepatic: NONE Renal: per the patient he also has bladder cancer, follows up with Dr. Sigala, she suggested surgical treatment but patient has refused. 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 No (JOANNE ARMIJO) Review of Systems Review of Systems Constitutional: Denies: chills, fever. Respiratory: Denies: cough, short of breath. Cardiovascular: Denies: chest pain. GI: Denies: nausea, vomiting. Genitourinary: Reports: see HPI. Musculoskeletal: Denies: back pain. Neurological/Psychological: Reports: no symptoms. Hematologic/Endocrine: Denies: bleeding. Immunologic/Allergic: Reports: no symptoms. (JOANNE ARMIJO) Physical Exam Physical Exam General Appearance: well developed/nourished, alert, awake Head: atraumatic, normal appearance Eyes: Bilateral: normal appearance. Ears, Nose, Throat, Mouth: hearing grossly normal Neck: normal inspection, supple, full range of motion Respiratory: no respiratory distress Gastrointestinal: normal bowel sounds, soft, mild suprapubic tenderness. Bladder distention Back: normal inspection, normal range of motion, no cva tenderness Extremities: normal range of motion Neurologic/Psych: no motor/sensory deficits, awake, alert, oriented x 3 Skin: intact, normal color, warm/dry Core Measures ACS in differential dx? No Severe Sepsis Present: No Septic Shock Present: No (JOANNE ARMIJO) Progress Differential Diagnosis: urinary retention, bph, prostatitis, malignancy, cauda equina, uti, wisam Initial ED EKG: none (JOANNE ARMIJO) Plan of Care: Orders Procedure Date/time Status Muro, Insertion/Removal/Asses 07/17 143 Active CULTURE,URINE 07/17 1437 Active URINALYSIS 07/17 1437 Complete Laboratory Tests 07/17/16 1445: Urine Color YEL, Urine Clarity CLEAR, Urine pH 6.5, Ur Specific Roland 1.015, Urine Protein NEG, Urine Ketones NEG, Urine Nitrite NEG, Urine Bilirubin NEG, Urine Urobilinogen 0.2, Ur Leukocyte Esterase NEG, Ur Microscopic EXAM NOT REQUIRED, Urine Hemoglobin NEG, Urine Glucose NEG Microbiology 07/17 1445 URINE ROUT: Urine Culture - RECD Muro catheter placed by nurse with approximately 800cc of urine output. Relief of symptoms. Discussed with and seen by Dr. Randolph. Appears stable for discharge and urology follow up. (JOANNE ARMIJO) Departure Departure Time of Disposition: 1504 Disposition: HOME OR SELF CARE Condition: Stable Clinical Impression Primary Impression: Urinary retention Referrals: TARYN NEWSOME,PAULO KOROMA MD,HADLEY Santos (PCP/Family) GERMAN JEFFERSON MD Additional Instructions: Follow-up with Dr. Sigala or with Dr. Jefferson(urologist) for further evaluation. Call on Tuesday for appointment. Return to emergency department in full he catheter is not draining, abdominal pain, fevers, chills, nausea, vomiting, back pain, or worsening of symptoms. Departure Forms: Customer Survey General Discharge Information (SINTIA MOTA,JOANNE) PA/PHARMACY INTAKE TECHNICIAN Co-Sign Statement Statement: ED Attending supervision documentation- [X] I saw and evaluated the patient. I have also reviewed all the pertinent lab results and diagnostic results. I agree with the findings and the plan of care as documented in the PA's/PHARMACY INTAKE TECHNICIAN's documentation. [] I have reviewed the ED Record and agree with the PA's/PHARMACY INTAKE TECHNICIAN's documentation. [] Additions or exceptions (if any) to the PAs/PHARMACY INTAKE TECHNICIAN's note and plan are summarized below: [] (GERI NEWSOME,AKANKSHA Kendrick)
[2016-07-17 14:56] VITALS: BP 122/68
== END 2016-07-17 15:29 ==
LOC: ERH 14:29
DX: R33.9 Retention of urine, unspecified (principal)
CPT/HCPCS: 81003; 87086

== ENCOUNTER 2016-09-16 22:56 | Observation (INO) | payer OTHER ==
[~2016-09-16] VITALS: Ht 165.1 cm; Wt 65.3 kg
--- NOTE | 2016-09-16 23:28 | ED CARDIAC/CP/PALPITATIONS ---
History of Present Illness General Chief Complaint: Chest Pain Stated Complaint: BIBA, CP Source: patient, old records, EMS Exam Limitations: no limitations Vital Signs & Intake/Output Vital Signs & Intake/Output Vital Signs Date Time Temp Pulse Resp B/P B/P Pulse O2 O2 Flow FiO2 Mean Ox Delivery Rate 09/17 0312 155/68 09/17 0311 97.9 60 18 160/74 94 Nasal 2.0L Cannula 09/17 0148 97.3 58 20 160/74 95 Room Air 09/16 2309 98.0 70 16 123/58 95 Nasal 2.0L Cannula ED Intake and Output 09/17 0000 09/16 1200 Intake Total 0 Output Total Balance 0 Intake, Oral 0 Allergies Coded Allergies: NO KNOWN ALLERGIES (01/24/12) Reconcile Medications Albuterol Sulfate (Proair Hfa) 90 MCG HFA.AER.AD 2 PUF INH Q4-6 PRN PRN COPD Amiodarone HCl 200 MG TABLET 200 MG PO DAILY HEART Amlodipine Besylate 5 MG TABLET 5 MG PO DAILY HEART HEALTH (Reported) Amoxicillin/Potassium Clav (Augmentin 875-125 Tablet) 875 MG-125 MG TABLET 1 TAB PO BID COPD exacerbation Apixaban (Eliquis) 5 MG TABLET 5 MG PO BID BLOOD THINNER Aspirin (Ecotrin*) 81 MG TABLET.DR 81 MG PO DAILY HEART HEALTH (Reported) Budesonide/Formoterol Fumarate (Symbicort 160-4.5 Mcg Inhaler) 160 MCG-4.5 MCG/ ACTUATION HFA.AER.AD 2 PUF INH BID COPD Losartan Potassium 50 MG TABLET 50 MG PO DAILY HIGH BLOOD PRESSURE Metoprolol Tartrate (Lopressor) 50 MG TABLET 25 MG PO BID HIGH BLOOD PRESSURE (Reported) Omeprazole 20 MG TABLET.DR 20 MG PO DAILY ACID REFLUX Prednisone 10 MG TABLET 0 PO SI COPD exacerbation 06/06/16- 06/07/16 take 4 tabs daily 06/08/16-06/09/17 take 3 tabs daily 06/10/16- 06/11/16 take 2 tabs daily 06/12/16-06/13/16 take 1 tab daily then stop. Sodium Chloride 1 GRAM TABLET 1 TAB PO DAILY LOW SODIUM Tamsulosin HCl (Flomax) 0.4 MG CAP.ER.24H 0.4 MG PO DAILY urinary retention Tiotropium [place] (Spiriva) 18 MCG CAP.W.DEV 1 CAP INH DAILY COPD Vit B12/FA/Pyridoxine HCl/Aa15 (Glycotrol Capsule) 500 MCG-400 MCG-10 MG-400 MG CAPSULE 100 MCG PO DAILY ANEMIA (Reported) Vit C/Hesperidin/Bioflavonoids (Grande-C 500 Tablet) 500 MG-100 MG-100 MG TABLET 500 MG PO DAILY IMMUNE SUPPORT (Reported) Vit D3 & K/Berberine HCl/Hops (Ostera Tablet) 500 UNIT-500 MCG-90 MG-370 MG TABLET 1,000 UNITS PO DAILY HEART HEALTH (Reported) Core Measure Meds Pre-Hospital aspirin, eliquis Triage Note: PT BIBA FROM HOME AFTER HAVING CP STARTING AT 220 WHILE AT REST. PT TOOK Triage Nurses Notes Reviewed? yes Onset: Just prior to arrival Duration: minute(s):, constant, gone now Timing: recent history Quality/Severity: severe Location: central Radiation: no radiation Activities at Onset: rest Prior Chest Pain/Card Workup: echocardiography, heart attack, stress test Modifying Factors: Improves With: nitroglycerin, rest. Nitro Today/Relief: 0.4 mg x 3, provided at home, complete relief Aspirin Today: 81 mg x 4, provided at home Associated Symptoms: dizziness, shortness of breath, weakness HPI: Prior to admission while watching TV patient complained of severe substernal chest pain constant nonradiating associated with shortness of breath dizziness similar to previous [place] pain. Pain was improved with 3 sublingual nitro and 4 baby aspirin currently he denies fever chills nausea vomiting diarrhea abdominal pain chest pain shortness breath headache dysuria rash bleeding. Past History Travel History Traveled to [place] past 21 day No Medical History Any Pertinent Medical History? see below for history Neurological: NONE EENT: NONE Cardiovascular: CAD, hypertension, hyperlipidemia, paroxysmal atrial fibrillation. Saccular aneurysms of thoracic aortic arch, patient has refused any intervention. Respiratory: bronchitis, COPD Gastrointestinal: NONE Hepatic: NONE Renal: per the patient he also has bladder cancer, follows up with Dr. Sigala, she suggested surgical treatment but patient has refused. 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 No Review of Systems Review of Systems Constitutional: Reports: see HPI, weakness. EENTM: Reports: no symptoms. Respiratory: Reports: see HPI, short of breath. Cardiovascular: Reports: see HPI, chest pain. GI: Reports: no symptoms. Genitourinary: Reports: no symptoms. Musculoskeletal: Reports: no symptoms. Skin: Reports: no symptoms. Neurological/Psychological: Reports: no symptoms. Hematologic/Endocrine: Reports: no symptoms. Immunologic/Allergic: Reports: no symptoms. All Other Systems: Reviewed and Negative Physical Exam Physical Exam General Appearance: well developed/nourished, alert, awake, anxious, mild distress Head: atraumatic, normal appearance Eyes: Bilateral: normal appearance, PERRL, EOMI. Ears, Nose, Throat: normal pharynx, normal ENT inspection, hearing grossly normal Neck: normal inspection, supple, full range of motion, no midline tenderness Respiratory: normal breath sounds, chest non-tender, no respiratory distress, quiet respiration, lungs clear Cardiovascular: regular rate/rhythm, normal peripheral pulses, norml femoral pulses equa Peripheral Pulses: 4+ carotid (R), 4+ carotid (L) Gastrointestinal: normal bowel sounds, soft, non-tender, no organomegaly Back: normal inspection, normal range of motion Extremities: normal inspection, normal capillary refill, normal range of motion Neurologic/Psych: no motor/sensory deficits, awake, alert, oriented x 3, normal mood/affect, hand chain maker II-XII nml as tested Reflexes: 2+: bicep (R), bicep (L). Skin: intact, normal color, warm/dry Lymphatic: no anterior cervical winnie Core Measures ACS in differential dx? Yes ASA ordered for poss ACS? No-other contraindication Severe Sepsis Present: No Septic Shock Present: No Progress Differential Diagnosis: AMI, atrial fibrillation, costochondritis, hyperkalemia, pneumonia Plan of Care: Orders Procedure Date/time Status Regular Diet 09/17 B Active TROPONIN LEVEL 09/17 599 Active CBC WITHOUT DIFFERENTIAL 09/17 599 Active BASIC ELECTROLYTES PLUS BUN&CR 05/19 0600 Active [id number], RIGHT 09/17 0317 Active Code Status 09/17 0317 Active Pathway - chart 09/17 0247 Active Pathway - chart 09/17 0231 Active House Staff 09/17 0231 Active Code Status 09/17 0231 Complete Patient Data 09/17 022 Active OXYGEN SETUP (GEN) 09/17 210 Active Saline Lock 09/[address] in observation 09/17 210 Active Vital Signs 09/17 210 Active Activity/Ambulation 09/17 021 Active Code Status 09/17 0211 Complete TRC EVALUATION (GEN) 09/17 UNK Active VTE Mechanical Prophylaxis 09/17 UNK Active Vital Signs 09/17 UNK Active TROPONIN LEVEL 09/16 2324 Complete PROTHROMBIN TIME 09/16 2324 Complete MAGNESIUM 09/16 2324 Complete COMPREHENSIVE METABOLIC PANEL 09/16 2324 Complete CBC WITHOUT DIFFERENTIAL 09/16 232 Complete B-TYPE NATRIURETIC PEP (BNP) 09/16 2324 Complete Intake & Output 09/16 2312 Active EKG 09/16 2258 Active Current Medications Sig/Jimbo Start time Last Medication Dose Stop Time Status Admin Amiodarone HCl 200 MG DAILY 09/17 1000 CAN (Cordarone) Amlodipine Besylate 5 MG DAILY 09/17 1000 CAN (Norvasc) Apixaban 5 MG BID 09/17 1000 CAN (Eliquis) Aspirin Buffered 81 MG DAILY 09/17 1000 AC (Ecotrin) Budesonide/ 2 PUF BID 09/17 1000 AC Formoterol Fumarate (Symbicort) Losartan Potassium 50 MG DAILY 09/17 1000 AC (Cozaar) Tamsulosin HCl 0.4 MG DAILY 09/17 1000 UNVr (Flomax) Heparin Sodium 5,000 UNIT Q8 09/17 0600 CAN (Porcine) Albuterol Sulfate 2 PUF Q4-6 PRN PRN 09/17 0245 AC (Ventolin) Sodium Chloride 1,000 ML Q13H 09/17 0245 AC 09/17 (Normal Saline 0.9%) 0318 Laboratory Tests 09/17/16 0002: Anion Gap 8, Estimated GFR 41 L, BUN/Creatinine Ratio 15.6, Glucose 99, Calcium 8.2 L, Magnesium 1.7, Total Bilirubin 0.6, AST 19, ALT 29, Alkaline Phosphatase 106, Troponin I < 0.01, [id number] Pept 248 H, Total Protein 5.3 L, Albumin 3.1 L, Globulin 2.2, Albumin/Globulin Ratio 1.4, PT 21.1 H, INR 2.02 H, CBC w Diff NO MAN DIFF REQ, RBC 3.35 L, MCV 96.0 H, MCH 31.6 H, RDW 15.8 H, MPV 7.6, Gran % 71.1, Lymphocytes % 11.5 L, Monocytes % 9.9 H, Eosinophils % 7.0 H, Basophils % 0.5, Absolute Granulocytes 5.8, Absolute Lymphocytes 0.9 L, Absolute Monocytes 0.8 H, Absolute Eosinophils 0.6, Absolute Basophils 0, PUBS MCHC 33.0 Diagnostic Imaging: Viewed by Me: Radiology Read. Discussed w/RAD: Radiology Read. CXR Impression: no acute abnormality Initial ED EKG: normal axis, normal intervals, normal p-waves, normal QRS complex, normal sinus rhythm, nonspecific ST T wave chg Prior EKG: unchanged Rhythm Strip: normal sinus rhythm Departure Departure Disposition: STILL A PATIENT Condition: Stable Clinical Impression Primary Impression: Chest pain with moderate risk of acute coronary syndrome Referrals: GA NEWSOME,HADLEY Santos (PCP/Family) Departure Forms: Customer Survey General Discharge Information Admission Note Spoke With: BRANDIN TURNER MD Documentation of Exam: Documentation of any treatments & extenuating circumstances including Concerns Regarding Discharge (functional status, medication knowledge or non-compliance, living conditions, etc.) that warrant an admission rather than observation: cardiac monitoring serial lab exams serial EKG cardiology evaluation medication adjustment continuing care discharge planning Critical Care Note Critical Care Note Critical Care Time: non-applicable
[2016-09-17 00:15] LABS: ABSOLUTE BASOPHIL COUNT 0 /CUMM (0.0-0.2); ABSOLUTE EOSINOPHIL COUNT 0.6 /CUMM (0.0-0.7); ABSOLUTE GRANULOCYTE CT 5.8 /CUMM (1.4-6.5); ABSOLUTE LYMPH COUNT 0.9 /CUMM (1.2-3.4); ABSOLUTE MONOCYTE COUNT 0.8 /CUMM (0.10-0.60); BASOPHIL % 0.5 % (0.0-2.0); GRANULOCYTE % 71.1 % (42.2-75.2); HEMATOCRIT 32.1 % (42-52); MEAN CORPUSCULAR HGB 31.6 PG (27.0-31.0); MEAN PLATELET VOLUME 7.6 FL (7.4-10.4); PLATELET COUNT 434 /CUMM (130-400); RBC DISTRIBUTION WIDTH 15.8 % (11.5-14.5); RED BLOOD CELL CT 3.35 /CUMM (4.70-6.10); WHITE BLOOD CELL COUNT 8.1 /CUMM (4.8-10.8)
--- NOTE | 2016-09-17 00:16 | RADIOLOGY REPORT ---
EXAMINATION: CHEST 1 VIEW CLINICAL INFORMATION: Shortness of breath, chest pain. COMPARISON: June 03, 2016. TECHNIQUE: An AP view of the chest is provided. FINDINGS: The cardiac silhouette is not enlarged. The mediastinal and hilar contours are unremarkable. There are neither pleural effusions nor pneumothoraces. There are no consolidations. The lungs are hyperinflated. The osseous structures are unremarkable. IMPRESSION: No evidence for acute disease. Lung hyperinflation.
[2016-09-17 00:20] LABS: PT 21.1 SEC (9.4-12.5)
--- NOTE | 2016-09-17 02:32 | History & Physical ---
JOSE ARTEAGA 09/17/16 0232: General Information and HPI MD Statement: I have seen and personally examined ZARINA SHEIKH and documented this H&P. The patient is a 86 year old M who presented with a patient stated chief complaint of [chest pain ]. Source of Information: patient Exam Limitations: dementia History of Present Illness: Mr. Sheikh is a pleasant 86 year old male with PMH [place] in 1991 s/p angioplasty, HTN, diastolic heart failure, saccular aortic aneurysm, paroxysmal atrial fibrillation on eliquis, COPD bronchitis on 2 L home O2 followed by Dr. Bonner, hiatal hernia with Zenker's diverticulum, prior tobacco abuse of greater than 40 years (quit >10 years ago) and prostate cancer who presented to [facility] with chief complaint of acute chest pain. Patient states that it started while he was watching TV around 9pm, it was 8/10, crushing in nature, started in mid chest and radiated to the right side. Patient too 3 pills of nitroglycerine and his called EMS> EMS advised them to take 4 pills of baby aspirin. Patient states that his chest pain had resolved by the time EMS arrived. Patient has been chest pain free since then. Patient denies any sweating, palpitations, shortness of breath however he does report that his vision got blurry and he had light headedness at the time of CP onset. Patient lives at home with his . uses came to walk. He also reports that be accidently bumped his right leg into dressor on and has leg pain and superficial hematoma from that. He went to his PCP who advised a leg x-ray. Patient was unable to get his leg x-ray. Allergies/Medications Allergies: Coded Allergies: NO KNOWN ALLERGIES (01/24/12) Home Med list Albuterol Sulfate (Proair Hfa) 90 MCG HFA.AER.AD 2 PUF INH Q4-6 PRN PRN COPD Amiodarone HCl 200 MG TABLET 200 MG PO DAILY HEART Amlodipine Besylate 5 MG TABLET 5 MG PO DAILY HEART HEALTH (Reported) Amoxicillin/Potassium Clav (Augmentin 875-125 Tablet) 875 MG-125 MG TABLET 1 TAB PO BID COPD exacerbation Apixaban (Eliquis) 5 MG TABLET 5 MG PO BID BLOOD THINNER Aspirin (Ecotrin*) 81 MG TABLET. 81 MG PO DAILY HEART HEALTH (Reported) Budesonide/Formoterol Fumarate (Symbicort 160-4.5 Mcg Inhaler) 160 MCG-4.5 MCG/ ACTUATION HFA.AER.AD 2 PUF INH BID COPD Losartan Potassium 50 MG TABLET 50 MG PO DAILY HIGH BLOOD PRESSURE Metoprolol Tartrate (Lopressor) 50 MG TABLET 25 MG PO BID HIGH BLOOD PRESSURE (Reported) Omeprazole 20 MG TABLET. 20 MG PO DAILY ACID REFLUX Prednisone 10 MG TABLET 0 PO SI COPD exacerbation 06/06/16- 06/07/16 take 4 tabs daily 06/08/16-06/09/17 take 3 tabs daily 06/10/16- 06/11/16 take 2 tabs daily 06/12/16-06/13/16 take 1 tab daily then stop. Sodium Chloride 1 GRAM TABLET 1 TAB PO DAILY LOW SODIUM Tamsulosin HCl (Flomax) 0.4 MG CAP.ER.24H 0.4 MG PO DAILY urinary retention Tiotropium [place] (Spiriva) 18 MCG CAP.W.DEV 1 CAP INH DAILY COPD Vit B12/FA/Pyridoxine HCl/Aa15 (Glycotrol Capsule) 500 MCG-400 MCG-10 MG-400 MG CAPSULE 100 MCG PO DAILY ANEMIA (Reported) Vit C/Hesperidin/Bioflavonoids (Grande-C 500 Tablet) 500 MG-100 MG-100 MG TABLET 500 MG PO DAILY IMMUNE SUPPORT (Reported) Vit D3 & K/Berberine HCl/Hops (Ostera Tablet) 500 UNIT-500 MCG-90 MG-370 MG TABLET 1,000 UNITS PO DAILY HEART HEALTH (Reported) Past History Travel History Traveled to [place] past 21 day No Medical History Neurological: NONE EENT: NONE Cardiovascular: CAD, hypertension, hyperlipidemia, paroxysmal atrial fibrillation. Saccular aneurysms of thoracic aortic arch, patient has refused any intervention. Respiratory: bronchitis, COPD Gastrointestinal: NONE Hepatic: NONE Renal: per the patient he also has bladder cancer, follows up with Dr. Sigala, she suggested surgical treatment but patient has refused. 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 EENTM: Reports: see HPI. Cardiovascular: Reports: see HPI. Respiratory: Reports: see HPI. GI: Reports: see HPI. Exam & Diagnostic Data Last 24 Hrs of Vital Signs/I&O Vital Signs Date Time Temp Pulse Resp B/P B/P Pulse O2 O2 Flow FiO2 Mean Ox Delivery Rate 09/17 0312 155/68 09/17 0311 97.9 60 18 160/74 94 Nasal 2.0L Cannula 09/17 0148 97.3 58 20 160/74 95 Room Air 09/16 2309 98.0 70 16 123/58 95 Nasal 2.0L Cannula Intake & Output 09/17 0800 09/17 0000 09/16 1600 Intake Total 0 Output Total Balance 0 Intake, Oral 0 Physical Exam General Appearance Alert, Oriented X3, Cooperative, No Acute Distress Skin No Rashes, erythematous buldge on anterior aspect of middle of right leg HEENT Atraumatic, PERRLA Neck Supple Cardiovascular Normal S1, Normal S2 Lungs Normal Air Movement Abdomen Soft, No Tenderness Neurological Normal Speech Extremities No Edema, Normal Pulses Body Front and Back (Adult) 1) Last 24 Hrs of Labs/Kushal: Laboratory Tests 09/17/16 0002: Anion Gap 8, Estimated GFR 41 L, BUN/Creatinine Ratio 15.6, Glucose 99, Calcium 8.2 L, Magnesium 1.7, Total Bilirubin 0.6, AST 19, ALT 29, Alkaline Phosphatase 106, Troponin I < 0.01, Ghx-N-Duvivhkipuu Pept 248 H, Total Protein 5.3 L, Albumin 3.1 L, Globulin 2.2, Albumin/Globulin Ratio 1.4, PT 21.1 H, INR 2.02 H, CBC w Diff NO MAN DIFF REQ, RBC 3.35 L, MCV 96.0 H, MCH 31.6 H, RDW 15.8 H, MPV 7.6, Gran % 71.1, Lymphocytes % 11.5 L, Monocytes % 9.9 H, Eosinophils % 7.0 H, Basophils % 0.5, Absolute Granulocytes 5.8, Absolute Lymphocytes 0.9 L, Absolute Monocytes 0.8 H, Absolute Eosinophils 0.6, Absolute Basophils 0, PUBS MCHC 33.0 Assessment/Plan Assessment: Mr. Sheikh is a pleasant 86 year old male with PMH [place] in 1991 s/p angioplasty, HTN, diastolic heart failure, saccular aortic aneurysm, paroxysmal atrial fibrillation on eliquis, COPD bronchitis on 2 L home O2 followed by Dr. Bonner, hiatal hernia with Zenker's diverticulum, prior tobacco abuse of greater than 40 years (quit >10 years ago) and prostate cancer who presented to [facility] with chief complaint of acute chest pain. Patient states that it started while he was watching TV around 9pm, it was 8/10, crushing in nature, started in mid chest and radiated to the right side. Patient too 3 pills of nitroglycerine and his called EMS> EMS advised them to take 4 pills of baby aspirin. Patient states that his chest pain had resolved by the time EMS arrived. Patient has been chest pain free since then. Patient denies any sweating, palpitations, shortness of breath however he does report that his vision got blurry and he had light headedness at the time of CP onset. Labs and Vitals as above CXR clear CT head- jo[facility] cute pathology EKG: NSR, HR 55, no ST changes, QTC 467 Assessment and Plan Will admit patient to telemetry floor Serial troponins and EKG Cardio consult in am given extensive cardiac history Will continue aspirin in am, need to clarify home meds ( eliquis/amiodarone from in am). Will hold metoprolol for now given his bradycardia and watch closely. Patient has hx of acortic aneurysm in previous CTA, will recheck blood pressur in both arms and compare to evaluate for aortic dissection (less likely) Will get x ray of his right leg to evaluate for fracture (patient has pain on ambulation). Creatinine is elevated, will start gentle hydration with IV fluids 75cc/hour and recheck bep in am. DVT ppx eliquis(patient took todays 09/16 dose already Patient is DNR DNI As Ranked By This Provider Problem List: 1. Orthostatic hypotension Core Measures/Miscellaneous Acute Coronary Syndrome ACS Diagnosis: Yes Date of most recent Echo 02/16/17 Last Known EF % 60 MELYSSA/ARB For EF <40% Yes Cerebrovascular Accident CVA/TIA Diagnosis: No Congestive Heart Failure CHF Diagnosis: No Venous Thromboembolism VTE Risk Factors: Age > 40 [facility] d/t: No contraindications No VTE Pharm Prophylaxis d/t: No contraindications VTE Diagnosis: No VTE Type: NONE VTE Confirmed by (Test): NONE Severe Sepsis Severe Sepsis Present: No Septic Shock Septic Shock Present: No Miscellaneous Documentation Attending Case Discussed With: BRANDIN TURNER MD Primary Care Physician: HADLEY KOROMA MD Patient sees these Specialists unknown Level of Patient Care: Telemetry BRANDIN TURNER 09/17/16 0448: Attending MD Review Statement Attending Statement Attending MD Statement: examined this patient, discuss w/resident/PA/LOGISTICS ADMINISTRATOR, agreed w/resident/PA/LOGISTICS ADMINISTRATOR, reviewed EMR data (avail), reviewed images, amended to note Attending Assessment/Plan: CC: chest pain PMH: HTN, CAD S/P stent, prostate cancer, paroxysmal A. fib, COPD on 2 L O2 (not using since 2 weeks), aneurysm in aortic arch and distal thoracic aorta. Patient was brought to ER through EMS after experiencing chest pain at home. Patient noticed chest pain at rest when he was sitting on the couch watching television, central substernal, radiating to right and left side of the chest. It was associated with mild shortness of breath. 1 to 2 hour prior to CP, patient admits strenous activity of trying to close window with lot of force. Patient took 3 tablets of nitroglycerin without much relief but patient started to feel lightheaded. So he called EMS, he was suggested to take 4 tablets of aspirin which he did. By the time EMS came his pain had resolved. Patient denies any palpitations, skipped beat, syncope or presyncopal symptoms. Vitals: Afebrile, pulse 5270, RR 20, blood pressure 123/ 58 on arrival, currently 160/74, saturating well on room air. On exam: A O 3, cooperative, no acute distress, neck supple, JVD normal, no lymphadenopathy, mucosa moist, no focal neurological deficit, right pedal edema on feet, no obvious skin rashes or inflammation, small cystic swelling on lateral aspect of right june of tibia, no codi tenderness. CVS: S1-S2, RRR. RS: Clear to auscultate bilaterally. Abdomen: Soft, NT, ND, bowel sounds present. Labs: WBC 8.1, hemoglobin 10.6, hematocrit 32.1, MCV 96, RDW 15.4, platelet 434, sodium 134, BUN 25, creatinine 1.6, LFT unremarkable, troponin less than 0.01, proBNP 248, argument 3.1, INR 2.2 CXR: No evidence for acute disease. Lung hyperinflation. EKG: Normal sinus rhythm A and P Patient came in with substernal chest pain, radiating to right and left side of the chest, started at rest, relieved after 3 tablets of nitroglycerin and aspirin at home. Patient does have significant history of coronary artery disease status post stenting. At the same time patient also carries diagnosis of aneurysm in aortic arch and distal thoracic aorta. Patient has refused investigation and treatment of aneurysm in the past. Patient's creatinine is elevated, any further contrast will damage kidney function, blood pressure in both arms was checked with no obvious difference. Chest x-ray does not show any mediastinal widening. Currently patient is symptomatically improved this all goes against rupture of any aneurysm, patient hemodynamically stable. Even though EKG does not show any acute changes and facet of troponin is negative patient would benefit from observation to rule out any ACS, improving his current kidney function he would benefit from CTA of chest if possible. * Chest pain rule out ACS * [facility] * History of aneurysm in aortic arch and distal thoracic aorta. * History of HTN, CAD S/P stent, prostate cancer, paroxysmal A. fib, COPD - Place in observation on telemetry floor - Continuous telemetry monitoring - Trend troponins and cardiac enzymes - Inform electronic design engineer in a.m. - Post void bladder scan to rule out obstruction - Renal ultrasound in a.m. - Hold by mouth Lasix - Continue aspirin, statin, beta tricia - Need to confirm his medications in morning, patient's helps him in his medication and patient does not recall any of them - Patient has pedal edema right side more than left, strict I's and O's, saline lock IV - When necessary nitro for chest pain. - Patient had 2. hemoglobin dropped since June. : Check iron studies.
--- NOTE | 2016-09-17 04:39 | RADIOLOGY REPORT ---
EXAMINATION: XR TIBIA AND FIBULA, RIGHT CLINICAL INFORMATION: Right tib-fib pain following injury. COMPARISON: None TECHNIQUE: AP and lateral views of the right tibia and fibula were obtained. FINDINGS: The bones and soft tissues are normal. No fracture. No osseous lesions. IMPRESSION: Unremarkable right tib-fib radiographs.
[2016-09-17 06:26] LABS: ABSOLUTE BASOPHIL COUNT 0 /CUMM (0.0-0.2); ABSOLUTE EOSINOPHIL COUNT 0.5 /CUMM (0.0-0.7); ABSOLUTE GRANULOCYTE CT 5.4 /CUMM (1.4-6.5); ABSOLUTE LYMPH COUNT 1.4 /CUMM (1.2-3.4); ABSOLUTE MONOCYTE COUNT 0.9 /CUMM (0.10-0.60); BASOPHIL % 0.4 % (0.0-2.0); EOSINOPHIL % 5.6 % (0-5); GRANULOCYTE % 66.4 % (42.2-75.2); HEMATOCRIT 33.4 % (42-52); MEAN CORPUSCULAR HGB 32.3 PG (27.0-31.0); MEAN CORPUSCULAR HGB CONC 33.4 G/DL (33.0-37.0); MEAN CORPUSCULAR VOLUME 96.7 FL (80.0-94.0); MEAN PLATELET VOLUME 7.7 FL (7.4-10.4); PLATELET COUNT 420 /CUMM (130-400); RBC DISTRIBUTION WIDTH 15.8 % (11.5-14.5); RED BLOOD CELL CT 3.46 /CUMM (4.70-6.10); WHITE BLOOD CELL COUNT 8.1 /CUMM (4.8-10.8)
[2016-09-17 06:39] VITALS: BP 151/70
--- NOTE | 2016-09-17 08:40 | ULTRASOUND REPORT ---
EXAMINATION: US RETROPERITONEAL COMPLETE (RENAL) CLINICAL INFORMATION: Evaluate for obstruction. COMPARISON: CT abdomen and pelvis 12/29/2008. TECHNIQUE: Real-time imaging of the kidneys and bladder. FINDINGS: RIGHT KIDNEY: 8.9 x 4.5 x 4.3 cm (SAG x AP x TRV). The kidney is normal in size, contour, and echogenicity. Renal cortical thickness is normal. There is a tiny 4 x 2 x 4 mm cyst noted. No calculi or focal solid parenchymal lesions. No hydronephrosis. LEFT KIDNEY: 10.2 x 4.2 x 4.5 cm (SAG x AP x TRV). The kidney is normal in size, contour, and echogenicity. Renal cortical thickness is normal. There is a tiny 9 x 4 x 7 mm cyst noted No calculi or focal solid parenchymal lesions. No hydronephrosis. BLADDER: Well-distended and normal. Ureteral jets were not seen. Incidental note made of a subcentimeter hepatic cyst. IMPRESSION: There is no evidence of obstruction.
[2016-09-17 16:30] VITALS: BP 116/52
--- NOTE | 2016-09-17 19:08 | Cons- Cardiology ---
General Information and HPI Consulting Request Date of Consult: 09/17/16 Requested By: LLOYD HOLMAN MD Reason for Consult: Chest pain History of Present Illness: The patient is an 86-year-old male who is followed by Dr. Cordoba, presenting with chest pain. He had a myocardial infarction in 1991. He apparently had angioplasty at that time, however records are not available. He has a history of paroxysmal atrial fibrillation, bladder tumor, and prostate cancer. 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 He was watching TV when he developed sharp substernal chest pain. This did not respond to 3 cm was returned, and his called EMS. EMS advised to take aspirin. By the time EMS arrived, he notes that the pain had resolved. He believes the pain lasted approximately 15 minutes before resolving. He did not note significant shortness of breath. No diaphoresis. No syncope. No lightheadedness or dizziness. No nausea or vomiting. He is currently pain- free. Allergies/Medications Allergies: Coded Allergies: NO KNOWN ALLERGIES (UNKNOWN 09/17/16) Home Med List: Albuterol Sulfate (Proair Hfa) 90 MCG HFA.AER.AD 2 PUF INH Q4-6 PRN PRN COPD Amiodarone HCl 200 MG TABLET 200 MG PO DAILY HEART Amlodipine Besylate 5 MG TABLET 5 MG PO DAILY HEART HEALTH (Reported) Apixaban (Eliquis) 5 MG TABLET 5 MG PO BID BLOOD THINNER Aspirin (Ecotrin*) 81 MG TABLET. 81 MG PO DAILY HEART HEALTH (Reported) Budesonide/Formoterol Fumarate (Symbicort 160-4.5 Mcg Inhaler) 160 MCG-4.5 MCG/ ACTUATION HFA.AER.AD 2 PUF INH BID COPD Losartan Potassium 50 MG TABLET 50 MG PO DAILY HIGH BLOOD PRESSURE Metoprolol Tartrate (Lopressor) 50 MG TABLET 25 MG PO BID HIGH BLOOD PRESSURE (Reported) Omeprazole 20 MG TABLET. 20 MG PO DAILY ACID REFLUX Tamsulosin HCl (Flomax) 0.4 MG CAP.ER.24H 0.4 MG PO DAILY urinary retention Tiotropium [place] (Spiriva) 18 MCG CAP.W.DEV 1 CAP INH DAILY COPD Vit B12/FA/Pyridoxine HCl/Aa15 (Glycotrol Capsule) 500 MCG-400 MCG-10 MG-400 MG CAPSULE 100 MCG PO DAILY ANEMIA (Reported) Vit C/Hesperidin/Bioflavonoids (Grande-C 500 Tablet) 500 MG-100 MG-100 MG TABLET 500 MG PO DAILY IMMUNE SUPPORT (Reported) Vit D3 & K/Berberine HCl/Hops (Ostera Tablet) 500 UNIT-500 MCG-90 MG-370 MG TABLET 1,000 UNITS PO DAILY HEART HEALTH (Reported) Current Medications: Current Medications Sig/Jimbo Start time Last Medication Dose Route Stop Time Status Admin Albuterol Sulfate 2 PUF Q4 09/17 1000 CAN INH Albuterol Sulfate 2 PUF Q4-6 PRN PRN 09/17 0245 AC INH Amiodarone HCl 200 MG DAILY 09/17 1000 CAN PO Amiodarone HCl 200 MG DAILY 09/17 1000 AC 09/17 PO 0941 Amlodipine Besylate 5 MG DAILY 09/17 1000 CAN PO Amlodipine Besylate 5 MG DAILY 09/17 1000 AC 09/17 PO 1006 Amlodipine Besylate 0 .STK-MED ONE 09/17 0851 DC PO Apixaban 5 MG BID 09/17 1000 CAN PO Apixaban 2.5 MG BID 09/17 1000 AC 09/17 PO 1006 Aspirin 0 .STK-MED ONE 09/17 0908 DC PO Aspirin Buffered 81 MG DAILY 09/17 1000 AC 09/17 PO 0941 Budesonide/ 2 PUF BID 09/17 1000 AC 09/17 Formoterol Fumarate INH 0941 Budesonide/ 2 PUF BID 09/17 1000 CAN Formoterol Fumarate INH Heparin Sodium 5,000 UNIT Q8 09/17 0600 CAN (Porcine) SC Losartan Potassium 50 MG DAILY 09/17 1000 AC 09/17 PO 0941 Losartan Potassium 0 .STK-MED ONE 09/17 0908 DC PO Metoprolol Tartrate 50 MG BID 09/17 1000 AC 09/17 PO 1006 Metoprolol Tartrate 0 .STK-MED ONE 09/17 0951 DC PO Omeprazole 0 .STK-MED ONE 09/17 0851 DC PO Omeprazole 20 MG DAILY AC 09/17 0905 AC 09/17 PO 1006 Sodium Chloride 1,000 ML Q13H 09/17 0245 DC 09/17 IV 0318 Tamsulosin HCl 0.4 MG DAILY 09/17 1000 AC 09/17 PO 0941 Tiotropium [place] 1 PUF DAILY 09/17 1000 AC INH Review of Systems Review of Systems: No rash. No tremor. No melena. All other systems were reviewed, and were noted to be negative. Past History Travel History Traveled to [place] past 21 day No Medical History Neurological: NONE EENT: NONE Cardiovascular: CAD, hypertension, hyperlipidemia, paroxysmal atrial fibrillation. Saccular aneurysms of thoracic aortic arch, patient has refused any intervention. Respiratory: bronchitis, COPD Gastrointestinal: NONE Hepatic: NONE Renal: per the patient he also has bladder cancer, follows up with Dr. Sigala, she suggested surgical treatment but patient has refused. 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 family history was reviewed with the patient, and there are no issues relevant to current admission. Psychosocial History Services at Home: None Smoking Status: Never Smoked ETOH Use: denies use Illicit Drug Use: denies illicit drug use Exam & Diagnostic Data Vital Signs and I&O Vital Signs Date Time Temp Pulse Resp B/P B/P Pulse O2 O2 Flow FiO2 Mean Ox Delivery Rate 09/17 1452 97.5 60 18 147/68 98 Nasal 2.0L Cannula 09/17 1222 98.2 56 18 147/65 97 Nasal 2.0L Cannula 09/17 1010 98.0 64 15 178/73 100 Nasal 2.0L Cannula 09/17 1006 65 178/73 09/17 1006 65 178/73 09/17 0941 65 178/73 09/17 0941 65 178/73 09/17 0941 65 178/73 09/17 0850 98.0 64 20 159/74 97 Room Air 09/17 0639 97.7 58 20 151/70 96 Nasal 2.0L Cannula 09/17 0617 97.7 58 20 151/70 96 Nasal 2.0L Cannula 09/17 0312 155/68 09/17 0311 97.9 60 18 160/74 94 Nasal 2.0L Cannula 09/17 0148 97.3 58 20 160/74 95 Room Air 09/16 2309 98.0 70 16 123/58 95 Nasal 2.0L Cannula Intake & Output 09/17 1600 09/17 0800 09/17 0000 05/18 1600 09/16 0800 09/16 0000 Intake Total 0 Output Total 500 580 Balance -500 -580 0 Intake, Oral 0 Output, Urine 500 580 Patient 144 lb Weight Physical Exam: Gen: The patient is in no acute distress HEENT: Normal nose, ears, and oropharynx. Pupils equal bilaterally. Conjunctiva normal. Neck: Supple with no JVD, no masses, and no thyromegaly Lungs: Clear to auscultation with normal respiratory effort Heart: RRR, S1, S2, no murmurs. No peripheral edema, 2+ pulses in the lower extremities bilaterally Abdomen: Soft, nontender, no masses. No hepatomegaly. No splenomegaly Extremities: No clubbing or cyanosis. Normal muscle strength in the upper and lower extremities Skin: Normal skin turgor with no skin ulcers or lesions noted. Neuro: Cranial nerves intact. Sensation intact Psych: Alert and oriented 3 with appropriate affect Labs/Kushal Results: Laboratory Tests 09/17 09/17 0618 0600 Chemistry Sodium (137 - 145 mmol/L) 137 Potassium (3.5 - 5.1 mmol/L) 4.3 Chloride (98 - 107 mmol/L) 102 Carbon Dioxide (22 - 30 mmol/L) 28 Anion Gap (5 - 16) 7 BUN (9 - 20 mg/dL) 23 H Creatinine (0.7 - 1.2 mg/dL) 1.5 H Estimated GFR (>60 ml/min) 44 L BUN/Creatinine Ratio (7 - 25 %) 15.3 Iron (49 - 181 ug/dL) 62 TIBC (261 - 462 ug/dL) 345 Ferritin (17.9 - 464 ng/mL) 69.2 Troponin I (<0.11 ng/ml) < 0.01 Hematology CBC w Diff NO MAN DIFF REQ WBC (4.8 - 10.8 /CUMM) 8.1 RBC (4.70 - 6.10 /CUMM) 3.46 L Hgb (14.0 - 18.0 G/DL) 11.2 L Hct (42 - 52 %) 33.4 L MCV (80.0 - 94.0 FL) 96.7 H MCH (27.0 - 31.0 PG) 32.3 H RDW (11.5 - 14.5 %) 15.8 H Plt Count (130 - 400 /CUMM) 420 H MPV (7.4 - 10.4 FL) 7.7 Gran % (42.2 - 75.2 %) 66.4 Lymphocytes % (20.5 - 51.1 %) 16.8 L Monocytes % (1.7 - 9.3 %) 10.8 H Eosinophils % (0 - 5 %) 5.6 H Basophils % (0.0 - 2.0 %) 0.4 Absolute Granulocytes (1.4 - 6.5 /CUMM) 5.4 Absolute Lymphocytes (1.2 - 3.4 /CUMM) 1.4 Absolute Monocytes (0.10 - 0.60 /CUMM) 0.9 H Absolute Eosinophils (0.0 - 0.7 /CUMM) 0.5 Absolute Basophils (0.0 - 0.2 /CUMM) 0 PUBS MCHC (33.0 - 37.0 G/DL) 33.4 Urines Ur Random Creatinine (mg/dL) 43.8 Ur Random Sodium (30 - 90 mmol/L) 67 Ur Random Potassium (mmol/L) 18.3 Fraction Sodium Excret (<1% %) 1.7 H 09/17 0002 Chemistry Sodium (137 - 145 mmol/L) 134 L Potassium (3.5 - 5.1 mmol/L) 4.1 Chloride (98 - 107 mmol/L) 100 Carbon Dioxide (22 - 30 mmol/L) 27 Anion Gap (5 - 16) 8 BUN (9 - 20 mg/dL) 25 H Creatinine (0.7 - 1.2 mg/dL) 1.6 H Estimated GFR (>60 ml/min) 41 L BUN/Creatinine Ratio (7 - 25 %) 15.6 Glucose (65 - 99 mg/dL) 99 Calcium (8.4 - 10.2 mg/dL) 8.2 L Magnesium (1.6 - 2.3 mg/dL) 1.7 Total Bilirubin (0.2 - 1.3 mg/dL) 0.6 AST (17 - 59 U/L) 19 ALT (21 - 72 U/L) 29 Alkaline Phosphatase (< 127 U/L) 106 Troponin I (<0.11 ng/ml) < 0.01 [id number] Pept (<125 pg/mL) 248 H Total Protein (6.3 - 8.2 g/dL) 5.3 L Albumin (3.5 - 5.0 g/dL) 3.1 L Globulin (1.9 - 4.2 gm/dL) 2.2 Albumin/Globulin Ratio (1.1 - 2.2 %) 1.4 Coagulation PT (9.4 - 12.5 SEC) 21.1 H INR (0.90 - 1.17) 2.02 H Hematology CBC w Diff NO MAN DIFF REQ WBC (4.8 - 10.8 /CUMM) 8.1 RBC (4.70 - 6.10 /CUMM) 3.35 L Hgb (14.0 - 18.0 G/DL) 10.6 L Hct (42 - 52 %) 32.1 L MCV (80.0 - 94.0 FL) 96.0 H MCH (27.0 - 31.0 PG) 31.6 H RDW (11.5 - 14.5 %) 15.8 H Plt Count (130 - 400 /CUMM) 434 H MPV (7.4 - 10.4 FL) 7.6 Gran % (42.2 - 75.2 %) 71.1 Lymphocytes % (20.5 - 51.1 %) 11.5 L Monocytes % (1.7 - 9.3 %) 9.9 H Eosinophils % (0 - 5 %) 7.0 H Basophils % (0.0 - 2.0 %) 0.5 Absolute Granulocytes (1.4 - 6.5 /CUMM) 5.8 Absolute Lymphocytes (1.2 - 3.4 /CUMM) 0.9 L Absolute Monocytes (0.10 - 0.60 /CUMM) 0.8 H Absolute Eosinophils (0.0 - 0.7 /CUMM) 0.6 Absolute Basophils (0.0 - 0.2 /CUMM) 0 PUBS MCHC (33.0 - 37.0 G/DL) 33.0 Diagnostic Data EKG Results EKG tracing is independently reviewed, and reveals normal sinus rhythm at 57 with borderline prolonged QT interval CXR Results No evidence for acute disease. Lung hyperinflation. Other Results Echocardiogram 03/01/16: Normal left ventricular ejection fraction visually estimated at > 65%. No obvious regional wall motion abnormalities. The left atrium is normal in size. There is mild thickening of the mitral valve leaflets with good excursion. There is mild calcification of mitral annulus posteriorly. Mild mitral regurgitation. Diffuse thickening of the aortic valve cusps with midly reduced excursion. There is no hemodynamically significant aortic stenosis. Mild aortic regurgitation. Right ventricular systolic pressure estimated to be elevated at 35- 40 mmHg. Normal aortic root dimension. The aortic arch is not visualized. Assessment/Plan Assessment/Plan The patient is an 86-year-old male with history of CAD, paroxysmal atrial fibrillation, saccular aortic aneurysm resulting with chest pain, which has resolved. His EKG does not reveal any evidence of significant ischemic changes. Recommendations: * Check 3rd troponin level * If patient remains symptomatic, and the third troponin levels negative, he may be discharged to home. * He should follow up with Dr. Cordoba as an outpatient in one week. * Pharmacologic nuclear stress test is recommended to be performed as an outpatient. Consult Acknowledgment - Thank you for your consult request.
--- NOTE | 2016-09-17 20:57 | Admission Certification ---
Admission Certification Certification Statement - As attending physician, I certify that at the time of - admission, based on clinical presentation, severity of - symptoms, need for further diagnostic testing and - therapeutic interventions, and risk of adverse outcomes - without in-hospital treatment, in my clinical assessment, - this patient requires an acute hospital stay for a minimum - of two nights or longer. I have also considered psychsocial - factors such as support system, advanced age, financial - issues, cognitive issues, and failed out-patient treatments, - past re-admission history, safety of patient, and lack of - compliance as applicable. Specific rationale supporting this admission is: Patient presented with chest pain. Brought in as observation to telemetry to check serial troponin I levels and Cardiology consult.
--- NOTE | 2016-09-17 21:02 | PN- Att Addend ---
Attending Addendum Attending Brief Note S: The patient denies chest pain at the time of my exam. Had some RLE pain that improved. O: VS: Vital Signs Date Time Temp Pulse Resp B/P B/P Pulse O2 O2 Flow FiO2 Mean Ox Delivery Rate 09/17 1700 Nasal 2.0L Cannula 09/17 1630 97.8 57 20 116/52 95 Nasal 2.0L Cannula 09/17 1452 97.5 60 18 147/68 98 Nasal 2.0L Cannula 09/17 1222 98.2 56 18 147/65 97 Nasal 2.0L Cannula 09/17 1010 98.0 64 15 178/73 100 Nasal 2.0L Cannula 09/17 1006 65 178/73 09/17 1006 65 178/73 09/17 0941 65 178/73 09/17 0941 65 178/73 09/17 0941 65 178/73 09/17 0850 98.0 64 20 159/74 97 Room Air 09/17 0639 97.7 58 20 151/70 96 Nasal 2.0L Cannula 09/17 0617 97.7 58 20 151/70 96 Nasal 2.0L Cannula 09/17 0312 155/68 09/17 0311 97.9 60 18 160/74 94 Nasal 2.0L Cannula 09/17 0148 97.3 58 20 160/74 95 Room Air 09/16 2309 98.0 70 16 123/58 95 Nasal 2.0L Cannula Intake & Output 09/17 1600 09/17 0800 09/17 0000 Intake Total 0 Output Total 500 580 Balance -500 -580 0 Intake, Oral 0 Output, Urine 500 580 Patient 144 lb Weight Current Medications Sig/Jimbo Start time Last Medication Dose Route Stop Time Status Admin Albuterol Sulfate 2 PUF Q4 09/17 1000 CAN INH Albuterol Sulfate 2 PUF Q4-6 PRN PRN 09/17 0245 AC INH Amiodarone HCl 200 MG DAILY 09/17 1000 CAN PO Amiodarone HCl 200 MG DAILY 09/17 1000 AC 09/17 PO 0941 Amlodipine Besylate 5 MG DAILY 09/17 1000 CAN PO Amlodipine Besylate 5 MG DAILY 09/17 1000 AC 09/17 PO 1006 Amlodipine Besylate 0 .STK-MED ONE 09/17 0951 DC PO Apixaban 5 MG BID 09/17 1000 CAN PO Apixaban 2.5 MG BID 09/17 1000 AC 09/17 PO 1006 Aspirin 0 .STK-MED ONE 09/17 0908 DC PO Aspirin Buffered 81 MG DAILY 09/17 1000 AC 09/17 PO 0941 Budesonide/ 2 PUF BID 09/17 1000 AC 09/17 Formoterol Fumarate INH 0941 Budesonide/ 2 PUF BID 09/17 1000 CAN Formoterol Fumarate INH Guaifenesin 600 MG Q12 09/17 2200 AC PO Heparin Sodium 5,000 UNIT Q8 09/17 0600 CAN (Porcine) SC Losartan Potassium 50 MG DAILY 09/17 1000 AC 09/17 PO 0941 Losartan Potassium 0 .STK-MED ONE 09/17 0908 DC PO Metoprolol Tartrate 50 MG BID 09/17 1000 AC 09/17 PO 1006 Metoprolol Tartrate 0 .STK-MED ONE 09/17 0951 DC PO Omeprazole 0 .STK-MED ONE 09/17 0951 DC PO Omeprazole 20 MG DAILY AC 09/17 0905 AC 09/17 PO 1006 Sodium Chloride 1,000 ML Q13H 09/17 0245 DC 09/17 IV 0318 Tamsulosin HCl 0.4 MG DAILY 09/17 1000 AC 09/17 PO 0941 Tiotropium [place] 1 PUF DAILY 09/17 1000 AC INH Neck: no JVD, bruits Chest: clear Cor: RRR, nl S1, S2 Abd: BS+, soft, NT Ext: mild RLE edema Labs/Tests: Laboratory Tests 09/17/16 2020: Troponin I Pending 09/17/16 0618: Ur Random Creatinine 43.8, Ur Random Sodium 67, Ur Random Potassium 18.3, Fraction Sodium Excret 1.7 H 09/17/16 0600: Anion Gap 7, Estimated GFR 44 L, BUN/Creatinine Ratio 15.3, Iron 62, TIBC 345, Ferritin 69.2, Troponin I < 0.01, CBC w Diff NO MAN DIFF REQ, RBC 3.46 L, MCV 96.7 H, MCH 32.3 H, RDW 15.8 H, MPV 7.7, Gran % 66.4, Lymphocytes % 16.8 L, Monocytes % 10.8 H, Eosinophils % 5.6 H, Basophils % 0.4, Absolute Granulocytes 5.4, Absolute Lymphocytes 1.4, Absolute Monocytes 0.9 H, Absolute Eosinophils 0.5, Absolute Basophils 0, PUBS MCHC 33.4 09/17/16 0002: Anion Gap 8, Estimated GFR 41 L, BUN/Creatinine Ratio 15.6, Glucose 99, Calcium 8.2 L, Magnesium 1.7, Total Bilirubin 0.6, AST 19, ALT 29, Alkaline Phosphatase 106, Troponin I < 0.01, Ncp-P-Kxuwvoddvwe Pept 248 H, Total Protein 5.3 L, Albumin 3.1 L, Globulin 2.2, Albumin/Globulin Ratio 1.4, PT 21.1 H, INR 2.02 H, CBC w Diff NO MAN DIFF REQ, RBC 3.35 L, MCV 96.0 H, MCH 31.6 H, RDW 15.8 H, MPV 7.6, Gran % 71.1, Lymphocytes % 11.5 L, Monocytes % 9.9 H, Eosinophils % 7.0 H, Basophils % 0.5, Absolute Granulocytes 5.8, Absolute Lymphocytes 0.9 L, Absolute Monocytes 0.8 H, Absolute Eosinophils 0.6, Absolute Basophils 0, PUBS MCHC 33.0 Impression/Plan: #Chest Pain/CAD- no further chest pain. Troponin levels negative at present. Appreciate cardiology input. Plan: Obtain 3rd troponin level. Pending observation over night and TI/pain may consider discharge in morning with plan for pharmacologic stress with Dr. Cordoba as OP. #CHAYA- Lasix on hold. No obstruction on renal US. On Losartan Plan: Continue to hold Lasix and follow-up BEP tomorrow. #HTN- BP stable. Plan: Continue current meds.
[2016-09-17 22:45] VITALS: BP 132/70
[2016-09-18 08:19] VITALS: BP 108/68
--- NOTE | 2016-09-18 09:13 | PN- Housestaff ---
ELISSA NEWSOME,[facility] 09/18/16 0913: Subjective Follow-up For: 1. Chest pain Tele-Events Since Last Visit: Sinus Bradycardia, 54-64, 1st degree AVB Subjective: The patient feels very well today, he has no complain to offer. In fact he wants to go home. Review of Systems Constitutional: Reports: no symptoms. Cardiovascular: Reports: no symptoms. Respiratory: Reports: no symptoms. Gastrointestinal: Reports: no symptoms. Genitourinary: Reports: no symptoms. Musculoskeletal: Reports: no symptoms. Neurological/Psychological: Reports: no symptoms. Objective Last 24 Hrs of Vital Signs/I&O Vital Signs Date Time Temp Pulse Resp B/P B/P Pulse O2 O2 Flow FiO2 Mean Ox Delivery Rate 09/18 1020 58 108/68 09/18 1020 58 108/68 09/18 1019 58 108/68 09/18 0819 97.8 58 18 108/68 97 Nasal 2.0L Cannula 09/18 0000 Nasal 2.0L Cannula 09/17 2245 97.3 54 18 132/70 95 Nasal 2.0L Cannula 09/17 2114 54 132/70 09/17 1700 Nasal 2.0L Cannula 09/17 1630 97.8 57 20 116/52 95 Nasal 2.0L Cannula 09/17 1452 97.5 60 18 147/68 98 Nasal 2.0L Cannula 09/17 1222 98.2 56 18 147/65 97 Nasal 2.0L Cannula Intake & Output 09/18 1600 09/18 0800 09/18 0000 Intake Total 350 450 Output Total Balance 350 450 Intake, IV 0 0 Intake, Oral 350 450 Number 0 0 Bowel Movements Physical Exam General Appearance: Alert, Oriented X3, Cooperative, No Acute Distress HEENT: PERRLA, EOMI, Mucous Membr. moist/pink Neck: Supple, No JVD Cardiovascular: Regular Rate, Normal S1, Normal S2, No Murmurs Lungs: Clear to Auscultation, Normal Air Movement Abdomen: Normal Bowel Sounds, Soft, No Tenderness, No Hepatospenomegaly Neurological: Normal Speech, Strength at 5/5 X4 Ext, Normal Tone, Sensation Intact Extremities: Normal Pulses, trace RLE edema Vascular: Normal Pulses, Pulses Symmetrical Current Medications: Current Medications Sig/Jimbo Start time Last Medication Dose Route Stop Time Status Admin Albuterol Sulfate 2 PUF Q4-6 PRN PRN 09/17 0245 AC INH Amiodarone HCl 200 MG DAILY 09/17 1000 AC 09/18 PO 1019 Amlodipine Besylate 5 MG DAILY 09/17 1000 AC 09/18 PO 1020 Apixaban 2.5 MG BID 09/17 1000 AC 09/18 PO 1019 Aspirin Buffered 81 MG DAILY 09/17 1000 AC 09/17 PO 0941 Budesonide/ 2 PUF BID 09/17 1000 AC 09/18 Formoterol Fumarate INH 1020 Guaifenesin 600 MG Q12 09/17 2200 AC 09/18 PO 1020 Losartan Potassium 50 MG DAILY 09/17 1000 AC 09/17 PO 0941 Metoprolol Tartrate 50 MG BID 09/17 1000 AC 09/18 PO 1020 Omeprazole 20 MG DAILY AC 09/17 0905 AC 09/18 PO 0550 Tamsulosin HCl 0.4 MG DAILY 09/17 1000 AC 09/17 PO 0941 Tiotropium [place] 1 PUF DAILY 09/17 1000 AC 09/18 INH 1020 Last 24 Hrs of Lab/Kushal Results Last 24 Hrs of Labs/Mics: Laboratory Tests 09/18/16 0600: Anion Gap 6, Estimated GFR 57 L, BUN/Creatinine Ratio 15.0 09/17/16 2020: Troponin I < 0.01 Assessment/Plan Assessment: Mr. Sheikh is a pleasant 86 year old male with PMH LA in 1991 s/p angioplasty, HTN, diastolic heart failure, saccular aortic aneurysm, paroxysmal atrial fibrillation on eliquis, COPD bronchitis on 2 L home O2 followed by Dr. Bonner, hiatal hernia with Zenker's diverticulum, prior tobacco abuse of greater than 40 years (quit >10 years ago) and prostate cancer who presented to [facility] with chief complaint of acute chest pain, placed in observation for further management ASSESMENT AND PLAN: 1. Chest Pain/CAD: - The patient presented with chest pain, trops have been negative. Cardiology evaluated the patient and ACS was ruled out. It was suggested it he remains asymptomatic and have no arrythmias, he shall be okay for discharge. The patient has remained asymptomatic through out his hospital stay, with no arrythmias, has been bradycardiac witha first degree AVB that is not significantly adding tohis symptoms. - Will discharge him today with follow up with Dr. Blair as an out patient for a nuclear stress test. 2. CHAYA: - On admission he was found to have a BUN/Cr of 25/1.6 (baseline 18/0.9-1) - After hydration the BUN/cCr came back to baseline 3. HTN: - Stable on home meds Problem List: 1. Atypical chest pain 2. CAD (coronary artery disease) 3. HTN (hypertension) Pain Ratin Pain Location: None Pain Goal: Remain pain free Pain Plan: PRN Tylenol Tomorrow's Labs & Rationales: None DVT/Prophylaxis: pharmacological Discharge Plan Discharge Disposition: home Stable for Discharge? Yes Anticipated Discharge (Day): today If Discharged Today/In 24 Hrs: CMR done AKHIL VEGA MD 09/18/16 1014: Attending MD Review Statement Attending Statement Attending MD Statement: examined this patient, discuss w/resident/PA/STACKER DRIVER, agreed w/resident/PA/STACKER DRIVER, reviewed EMR data (avail), reviewed images Attending Assessment/Plan: Patient feels well and is eager to leave for home. He tells me that Dr. Crawford told him that if his blood tests were okay he could go. He is an 86- year-old with a past medical history of A. fib on anticoagulation, CAD, COPD who is here as an observation for chest pain. Cardiology felt this was likely not acute coronary syndrome and that if the troponins are negative and he is asymptomatic he could be followed up as an outpatient. 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
[2016-09-18 10:20] VITALS: BP 108/68
== END 2016-09-18 12:10 ==
LOC: ERH 22:56 → ERHI 09-17 02:11 → ENRESERV 09-17 15:13 → ENTRNSPT 09-17 16:40 → EDTRNSPT 09-17 16:50 → EDTRNSPTTYP 09-17 16:50 → 1NO 09-17 17:01 → CMPTRNSPT 09-17 17:16 → ENPENDDIS 09-18 09:50 → 1NO 09-18 10:06
PROVIDERS: Emergency Medicine; Internal Medicine; ADMIT Internal Medicine
DX: R07.89 Other chest pain (principal); N17.9 Acute kidney failure, unspecified; I25.2 Old myocardial infarction; I50.32 Chronic diastolic (congestive) heart failure; I71.2 Thoracic aortic aneurysm, without rupture; I48.0 Paroxysmal atrial fibrillation; Z79.01 Long term (current) use of anticoagulants; J44.9 Chronic obstructive pulmonary disease, unspecified; Z99.81 Dependence on supplemental oxygen; I25.10 Atherosclerotic heart disease of native coronary artery without angina pectoris; I10 Essential (primary) hypertension; E78.5 Hyperlipidemia, unspecified; K44.9 Diaphragmatic hernia without obstruction or gangrene; K22.5 Diverticulum of esophagus, acquired; Z85.46 Personal history of malignant neoplasm of prostate; Z85.51 Personal history of malignant neoplasm of bladder; Z85.828 Personal history of other malignant neoplasm of skin
CPT/HCPCS: 1328; 1530; 1748; 84133; 84300; 36415; 73590-RT; 76775; 82436; 82570; 93005; 93010; G0378; J3490

== ENCOUNTER 2017-08-02 13:36 | Inpatient (IN) | payer OTHER ==
[~2017-08-02] VITALS: Ht 165.1 cm; Wt 66.4 kg
[~2017-08-02 13:36] MED LIST changes: +ANUSOL-HC25 M1 RC
--- NOTE | 2017-08-02 14:09 | ED DYSPNEA/ASTHMA COMPLAINT ---
History of Present Illness General Chief Complaint: Dyspnea (COPD, CHF, Other) Stated Complaint: SOB Source: patient, family, old records, EMS Exam Limitations: clinical condition, dyspnea Vital Signs & Intake/Output Vital Signs & Intake/Output Vital Signs Date Time Temp Pulse Resp B/P B/P Pulse O2 O2 Flow FiO2 Mean Ox Delivery Rate 08/05 630 97.7 66 20 112/50 94 08/05 0000 Nasal 3.0L Cannula 08/04 2237 98.4 83 18 114/48 94 Nasal Cannula 08/04 2136 77 114/54 08/04 2115 96 Nasal 3.0L Cannula 08/04 1416 98.0 68 16 100/44 96 Nasal 3.0L Cannula 08/04 1130 82 100/60 08/04 1130 82 100/60 08/04 1040 90 16 100/60 08/04 1039 90 16 100/40 05 1038 90 16 100/40 08/04 0839 93 Nasal 3.0L Cannula 08/04 0800 97 Nasal 3.0L Cannula ED Intake and Output 08/05 0000 08/04 1200 Intake Total 850 110 Output Total 300 Balance 550 110 Intake, IV 250 10 Intake, Oral 600 100 Output, Urine 300 Patient 146 lb Weight Weight Bed scale Measurement Method Allergies Coded Allergies: NO KNOWN ALLERGIES (UNKNOWN 09/17/16) Reconcile Medications Albuterol Sulfate (Proair Hfa) 90 MCG HFA.AER.AD 2 PUF INH Q4-6 PRN PRN COPD Amiodarone (Cordarone) 200 MG TABLET 200 MG PO DAILY HEART Amlodipine Besylate 5 MG TABLET 5 MG PO DAILY HEART HEALTH (Reported) Anusol Hc (Anusol-Hc) 25 MG SUPP.RECT 1 SUP RC BID PRN HEMORRHOIDS Apixaban (Eliquis) 5 MG TABLET 5 MG PO BID BLOOD THINNER Aspirin (Ecotrin*) 81 MG TABLET.DR 81 MG PO DAILY HEART HEALTH (Reported) Budesonide/Formoterol Fumarate (Symbicort 160-4.5 Mcg Inhaler) 160 MCG-4.5 MCG/ ACTUATION HFA.AER.AD 2 PUF INH BID COPD Finasteride 5 MG TABLET 1 TAB PO DAILY BPH (Reported) Furosemide (Lasix) 20 MG TABLET 1 TAB PO BID CHF (Reported) Losartan Potassium 50 MG TABLET 25 MG PO DAILY HIGH BLOOD PRESSURE Metoprolol Tartrate (Lopressor) 50 MG TABLET 25 MG PO BID HIGH BLOOD PRESSURE (Reported) Omeprazole 20 MG TABLET.DR 20 MG PO DAILY ACID REFLUX Tamsulosin HCl (Flomax) 0.4 MG CAP.ER.24H 0.4 MG PO DAILY urinary retention Tiotropium Leslie (Spiriva) 18 MCG CAP.W.DEV 1 CAP INH DAILY COPD Vit B12/FA/Pyridoxine HCl/Aa15 (Glycotrol Capsule) 500 MCG-400 MCG-10 MG-400 MG CAPSULE 100 MCG PO DAILY ANEMIA (Reported) Vit C/Hesperidin/Bioflavonoids (Grande-C 500 Tablet) 500 MG-100 MG-100 MG TABLET 500 MG PO DAILY IMMUNE SUPPORT (Reported) Vit D3 & K/Berberine HCl/Hops (Ostera Tablet) 500 UNIT-500 MCG-90 MG-370 MG TABLET 1,000 UNITS PO DAILY HEART HEALTH (Reported) Triage Note: PT FROM HOME WITH MULTIPLE COMPLAINTS. ORIGINAL STATEMENT WAS THAT PT EXPERIENCING INCREASED SOB AND PROD COUGH SINCE YESTERDAY. PT FURTHER C/O WEAKNESS, DIZZINESS, LOSS OF BALANCE AND STOMACH PAIN x SAME AMOUNT OF TIME. VISIBLY DYSPNEIC EVEN AT REST, WORSENED WITH ANY EXERTION. 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 + BLOOD THINNERS. DENIES HEAD STRIKE. HYPERTENSIVE ON ARRIVAL. PALE. O2 SAT 98% ON 3L NC Triage Nurses Notes Reviewed? yes HPI: Patient presents for evaluation of worsening shortness of breath over the past 2 weeks. Patient has a history of COPD but his inhalers have not been improving his difficulty breathing. Past History Travel History Traveled to [place] past 21 day No Medical History Any Pertinent Medical History? see below for history Neurological: NONE EENT: NONE Cardiovascular: CAD, hypertension, hyperlipidemia, paroxysmal atrial fibrillation. Saccular aneurysms of thoracic aortic arch, patient has refused any intervention. Respiratory: bronchitis, COPD, HOME O2 Gastrointestinal: NONE Hepatic: NONE Renal: per the patient he also has bladder cancer, follows up with Dr. Sigala, she suggested surgical treatment but patient has refused. 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 No Review of Systems Review of Systems Constitutional: Reports: no symptoms. EENTM: Reports: no symptoms. Respiratory: Reports: see HPI. Cardiovascular: Reports: no symptoms. GI: Reports: no symptoms. Genitourinary: Reports: no symptoms. Musculoskeletal: Reports: no symptoms. Skin: Reports: no symptoms. Neurological/Psychological: Reports: no symptoms. Hematologic/Endocrine: Reports: no symptoms. Immunologic/Allergic: Reports: no symptoms. All Other Systems: Reviewed and Negative Physical Exam Physical Exam Respiratory: see below Comments: Gen.: Well-nourished, well-developed, no acute respiratory distress. moderate respiratory distress Head: Normocephalic, atraumatic. Eyes: Normal inspection bilaterally Ears: Normal inspection bilaterally Nose: Normal inspection Throat/mouth : Moist mucosa Neck: Supple, full range of motion, no goiter Heart: Regular rate and rhythm, no murmurs rubs or gallops Lungs: Diffuse prominent rhonchi with decreased air entry bilaterally Chest: Nontender Back: Normal range of motion Abdomen: Soft, nontender, nondistended, normal bowel sounds Extremities: Normal range of motion grossly, equal radial pulses, no cyanosis clubbing or edema Neurologic: Cranial nerves grossly intact, speech is clear Skin: warm and dry Psychiatric: Calm, cooperative, no apparent delusions or hallucinations Core Measures ACS in differential dx? No CVA/TIA Diagnosis No Sepsis Present: No Sepsis Focused Exam Completed? No Progress Differential Diagnosis: AMI, bronchitis, CHF, COPD, pneumonia, unstable angina, anemia, dehydration, electrolyte abnormality, occult infection Plan of Care: Orders Procedure Date/time Status RETICULOCYTE COUNT 08/05 599 Active LDH (LACT ACID DEHYDROGENASE) 08/05 06 Active CBC WITHOUT DIFFERENTIAL 08/05 06 Active BASIC ELECTROLYTES PLUS BUN&CR 08/05 06 Active EKG 08/05 0238 Active CBC WITHOUT DIFFERENTIAL 08/04 1700 Complete Lab Add-on Test 08/04 UNK Active MISTAKE 08/04 UNK Active MISSING MEDICATION FORM 08/04 UNK Active OXYGEN SETUP CHG 08/03 UNK Complete AEROSOL CHG 08/03 UNK Complete OXYGEN 08/03 UNK Complete OXYGEN TRANSPORT 04/04 UNK Complete Current Medications Sig/Jimbo Start time Last Medication Dose Stop Time Status Admin Prednisone 10 MG DAILY 08/16 1000 CAN 08/19 0959 Prednisone 5 MG DAILY 08/16 1000 AC 08/19 0959 Prednisone 20 MG DAILY 08/13 1000 CAN 08/16 0959 Prednisone 10 MG DAILY 08/13 1000 AC 08/16 0959 Prednisone 30 MG DAILY 08/10 1000 CAN 08/13 0959 Prednisone 20 MG DAILY 08/10 1000 AC 08/13 0959 Prednisone 40 MG DAILY 08/07 1000 CAN 08/10 0959 Prednisone 30 MG DAILY 08/07 1000 AC 08/10 0959 Amiodarone HCl 100 MG DAILY 08/05 1000 AC (Cordarone) Senna/Docusate Sodium 2 TAB DAILY 08/04 2100 AC 08/04 (Senokot S) 2232 Polyethylene Glycol 17 GM DAILY 08/04 1034 AC 08/04 (Miralax) 1130 Finasteride 5 MG DAILY 08/04 1000 AC 08/04 (Proscar) 1038 Furosemide 20 MG DAILY 08/04 1000 AC 08/04 (Lasix) 1040 Losartan Potassium 25 MG DAILY 08/04 1000 AC 08/04 (Cozaar) 1040 Prednisone 50 MG DAILY 08/04 1000 CAN 08/07 0959 Prednisone 40 MG DAILY 08/04 1000 CAN 08/19 0959 Prednisone 40 MG DAILY 08/04 1000 AC 08/04 08/07 0959 1043 Guaifenesin/Codeine 10 ML Q4P PRN 08/04 0530 AC 08/04 Phosphate 1131 (Robitussin AC) Albuterol Sulfate 3 ML TID 08/03 1600 AC 08/04 (Proventil) 2115 Ipratropium Leslie 2.5 ML TID 08/03 1600 AC 08/04 (Atrovent) 2115 Ferrous Sulfate 325 MG DAILY 08/03 1500 AC 08/04 (Feosol) 1037 Ceftriaxone Sodium 1,000 MG DAILY 08/03 1200 AC 08/04 (Rocephin) 1049 Budesonide/ 2 PUF BID 08/03 1000 AC 08/04 Formoterol Fumarate 2136 (Symbicort) Metoprolol Tartrate 25 MG BID 08/03 1000 AC 08/04 (Lopressor) 2136 Tamsulosin HCl 0.4 MG DAILY 08/03 1000 AC 08/04 (Flomax) 1130 Omeprazole 40 MG DAILY AC 08/03 0700 AC 08/05 (Prilosec) 0618 Albuterol Sulfate 2 PUF Q4-6 PRN PRN 08/03 0230 AC (Ventolin) Laboratory Tests 08/05/17 0607: Sodium Pending, Potassium Pending, Chloride Pending, Carbon Dioxide Pending, Anion Gap Pending, BUN Pending, Creatinine Pending, BUN/Creatinine Ratio Pending , Lactate Dehydrogenase Pending, CBC w Diff Pending, WBC Pending, RBC Pending, Hgb Pending, Hct Pending, MCV Pending, MCH Pending, MCHC Pending, RDW Pending, Plt Count Pending, MPV Pending, Retic Count Pending 08/04/17 1740: CBC w Diff NO MAN DIFF REQ, RBC 3.09 L, MCV 79.4 L, MCH 24.9 L, MCHC 31.4 L, RDW 17.4 H, MPV 9.2, Gran % 90.8 H, Lymphocytes % 4.5 L, Monocytes % 4.7, Eosinophils % 0, Basophils % 0, Absolute Granulocytes 14.1 H, Absolute Lymphocytes 0.7 L, Absolute Monocytes 0.7 H, Absolute Eosinophils 0, Absolute Basophils 0 Initial ED EKG: none Comments: 08/02/2017 3:38:53 PM I have updated Theo on test results. He feels better although his oxygen saturation on 3 L nasal cannula (he typically wears 2 L/m at home) is 91-93%. I will order another nebulizer treatment and reevaluate. 08/02/2017 5:00:21 PM patient appears comfortable on a nasal cannula with oxygen saturation 93%. He feels he has to urinate and is experiencing some pain in the suprapubic region. I've advised his nurse to give him the opportunity to empty his bladder. She will send off a urinalysis. The patient's feels that he "is a mess" and should be in the hospital for 2 days. Departure Departure Disposition: STILL A PATIENT Condition: Stable Clinical Impression Primary Impression: COPD exacerbation Secondary Impressions: Anemia Qualifiers: Anemia type: unspecified type Qualified Code: D64.9 - Anemia, unspecified Renal insufficiency Referrals: Geovanny NEWSOME,Donald Santos (PCP/Family) Departure Forms: Customer Survey General Discharge Information Prescriptions: Current Visit Scripts Losartan Potassium 25 MG PO DAILY 30 Days Admission Note Spoke With: Cortes Michael MD Documentation of Exam: Documentation of any treatments & extenuating circumstances including Concerns Regarding Discharge (functional status, medication knowledge or non-compliance, living conditions, etc.) that warrant an admission rather than observation: Patient presents for evaluation of worsening shortness of breath and gait instability. Patient's presentation to the emergency department was consistent with COPD exacerbation and he was treated with 2 nebulizers and Solu-Medrol with improvement. However, the patient's hematocrit and hemoglobin have been trending downward consistent with a worsening anemia of unclear etiology. Attempts to ambulate patient in the emergency department revealed severe gait instability and the potential for falling with subsequent injury. He is therefore poor candidate for outpatient management as he would be at high risk of injuring himself while complying with outpatient treatment. I feel he requires hospitalization for investigation of the underlying cause of his anemia including the possibility of an occult GI bleed given his current use of anticoagulants for his history of atrial fibrillation. GI consultation should be considered during this patient's hospitalization along with monitoring of his H&H. If occult bleeding is ruled out hematology consultation to be considered. Given the patient's gait instability physical therapy consultation should be obtained for assessment of the patient's need for rehabilitation. Patient's COPD exacerbation should be treated with nebulizers and steroids. Pulmonary consultation should be considered under the circumstances. Given this patient's advanced age and multiple medical comorbidities he is treatment and recovery is likely to be prolonged and complicated. I feel he will require a multiple day hospitalization. Critical Care Note Critical Care Note Critical Care Time: 30-74 min
[2017-08-02 14:18] LABS: ABSOLUTE BASOPHIL COUNT 0.2 /CUMM (0.0-0.2); ABSOLUTE EOSINOPHIL COUNT 0.2 /CUMM (0.0-0.7); ABSOLUTE GRANULOCYTE CT 14.5 /CUMM (1.4-6.5); ABSOLUTE LYMPH COUNT 0.6 /CUMM (1.2-3.4); ABSOLUTE MONOCYTE COUNT 1.5 /CUMM (0.10-0.60); BASOPHIL % 0.9 % (0.0-2.0); GRANULOCYTE % 85.3 % (42.2-75.2); HEMATOCRIT 28.4 % (42-52); MEAN CORPUSCULAR HGB 24.6 PG (27.0-31.0); MEAN CORPUSCULAR HGB CONC 30.9 G/DL (33.0-37.0); MEAN CORPUSCULAR VOLUME 79.7 FL (80.0-94.0); MEAN PLATELET VOLUME 7.7 FL (7.4-10.4); PLATELET COUNT 520 /CUMM (130-400); RBC DISTRIBUTION WIDTH 17.1 % (11.5-14.5); RED BLOOD CELL CT 3.56 /CUMM (4.70-6.10)
--- NOTE | 2017-08-02 14:54 | RADIOLOGY REPORT ---
EXAMINATION: XR PORTABLE CHEST CLINICAL INFORMATION: Dyspnea and rhonchi. History of chronic obstructive pulmonary disease. COMPARISON: Prior chest radiograph, including 09/16/2016. Chest CT from 02/27/2016. TECHNIQUE: Portable frontal view of the chest was obtained. FINDINGS: Lungs are well expanded and hyperlucent from chronic emphysematous disease. The peribronchial interstitium appears chronically thickened. Unable to exclude acute bronchitis superimposed on the chronic airway inflammation. No focal consolidation or pleural effusion. Cardiac silhouette remains normal in size. 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 The aneurysm is difficult to precisely measure. It has an estimated transverse dimension of 3.8 cm, compared to 3.4 cm on 09/16/2016 Bones appear diffusely osteopenic. IMPRESSION: 1. Chronic obstructive pulmonary disease. 2. 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
[2017-08-02] MEDS ORDERED: CLEOCIN HCL300 M1 PO (17:40)
--- NOTE | 2017-08-02 21:02 | History & Physical ---
Shaun NEWSOME,Adolfo 08/02/172101: General Information and HPI Allergies/Medications Allergies: Coded Allergies: NO KNOWN ALLERGIES (UNKNOWN 09/17/16) Home Med list Albuterol Sulfate (Proair Hfa) 90 MCG HFA.AER.AD 2 PUF INH Q4-6 PRN PRN COPD Amiodarone (Cordarone) 200 MG TABLET 200 MG PO DAILY HEART Amlodipine Besylate 5 MG TABLET 5 MG PO DAILY HEART HEALTH (Reported) Anusol Hc (Anusol-Hc) 25 MG SUPP.RECT 1 SUP RC BID PRN HEMORRHOIDS Apixaban (Eliquis) 5 MG TABLET 5 MG PO BID BLOOD THINNER Aspirin (Ecotrin*) 81 MG TABLET.DR 81 MG PO DAILY HEART HEALTH (Reported) Budesonide/Formoterol Fumarate (Symbicort 160-4.5 Mcg Inhaler) 160 MCG-4.5 MCG/ ACTUATION HFA.AER.AD 2 PUF INH BID COPD Losartan Potassium 50 MG TABLET 50 MG PO DAILY HIGH BLOOD PRESSURE Metoprolol Tartrate (Lopressor) 50 MG TABLET 25 MG PO BID HIGH BLOOD PRESSURE (Reported) Omeprazole 20 MG TABLET.DR 20 MG PO DAILY ACID REFLUX Tamsulosin HCl (Flomax) 0.4 MG CAP.ER.24H 0.4 MG PO DAILY urinary retention Tiotropium [place] (Spiriva) 18 MCG CAP.W.DEV 1 CAP INH DAILY COPD Vit B12/FA/Pyridoxine HCl/Aa15 (Glycotrol Capsule) 500 MCG-400 MCG-10 MG-400 MG CAPSULE 100 MCG PO DAILY ANEMIA (Reported) Vit C/Hesperidin/Bioflavonoids (Grande-C 500 Tablet) 500 MG-100 MG-100 MG TABLET 500 MG PO DAILY IMMUNE SUPPORT (Reported) Vit D3 & K/Berberine HCl/Hops (Ostera Tablet) 500 UNIT-500 MCG-90 MG-370 MG TABLET 1,000 UNITS PO DAILY HEART HEALTH (Reported) Past History Travel History Traveled to [place] past 21 day No Medical History Neurological: NONE EENT: NONE Cardiovascular: CAD, hypertension, hyperlipidemia, paroxysmal atrial fibrillation. Saccular aneurysms of thoracic aortic arch, patient has refused any intervention. Respiratory: bronchitis, COPD, HOME O2 Gastrointestinal: NONE Hepatic: NONE Renal: per the patient he also has bladder cancer, follows up with Dr. Sigala, she suggested surgical treatment but patient has refused. 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
[2017-08-02 23:02] VITALS: BP 110/56
--- NOTE | 2017-08-02 23:57 | History & Physical ---
César Persaud MD 08/02/17 8094: General Information and HPI MD Statement: I have seen and personally examined ZARINA SMITH and documented this H&P. The patient is a 87 year old M who presented with a patient stated chief complaint of shortness of breath. Source of Information: patient, old records Exam Limitations: no limitations History of Present Illness: 86 year old male with past medical history significant for HTN, HFpEF, CAD, OR 1991 s/p angioplasty, saccular aortic aneurysm, paroxysmal atrial fibrillation on eliquis and amiodarone, COPD on 2 L home O2 ([place]), former smoker, prostate cancer, and bladder cancer (patient has elected not to treat at this time) with Dr. Sigala presented with complaints of acute onset of dyspnea. According to the patient for the past two days he has had progressively worsening dyspnea. He is on 2L of continuous oxygen at home. He normally is able to ambulate from room to room at home with a cane with moderate dyspnea then resolves with sitting and resting but for the past few days he is unable to walk as far and takes substantially longer to catch his breath after rest. He denies resting dyspnea and orthopnea. He has a chronic productive cough of clear sputum but lately it has been red tinged which he isn't sure if is blood. He does complain of a sore and dry throat. His told him that he has been wheezing. Walking into the emergency department the patient fell in the parking lot. He denied any loss of consciousness and head strike. He feels like lately his gait has been unsteady but denies feel vertigo or lightheaded, chest pains, palpations, nausea or diaphoresis prior to the falls or at any time recently. The patient was treated with nebulized albuterol, ipatropium and 125mg of solumedrol in the emergency department and admitted to telemetry. Allergies/Medications Allergies: Coded Allergies: NO KNOWN ALLERGIES (UNKNOWN 09/17/16) Home Med list Albuterol Sulfate (Proair Hfa) 90 MCG HFA.AER.AD 2 PUF INH Q4-6 PRN PRN COPD Amiodarone (Cordarone) 200 MG TABLET 200 MG PO DAILY HEART Amlodipine Besylate 5 MG TABLET 5 MG PO DAILY HEART HEALTH (Reported) Anusol Hc (Anusol-Hc) 25 MG SUPP.RECT 1 SUP RC BID PRN HEMORRHOIDS Apixaban (Eliquis) 5 MG TABLET 5 MG PO BID BLOOD THINNER Aspirin (Ecotrin*) 81 MG TABLET. 81 MG PO DAILY HEART HEALTH (Reported) Budesonide/Formoterol Fumarate (Symbicort 160-4.5 Mcg Inhaler) 160 MCG-4.5 MCG/ ACTUATION HFA.AER.AD 2 PUF INH BID COPD Losartan Potassium 50 MG TABLET 50 MG PO DAILY HIGH BLOOD PRESSURE Metoprolol Tartrate (Lopressor) 50 MG TABLET 25 MG PO BID HIGH BLOOD PRESSURE (Reported) Omeprazole 20 MG TABLET.DR 20 MG PO DAILY ACID REFLUX Tamsulosin HCl (Flomax) 0.4 MG CAP.ER.24H 0.4 MG PO DAILY urinary retention Tiotropium [place] (Spiriva) 18 MCG CAP.W.DEV 1 CAP INH DAILY COPD Vit B12/FA/Pyridoxine HCl/Aa15 (Glycotrol Capsule) 500 MCG-400 MCG-10 MG-400 MG CAPSULE 100 MCG PO DAILY ANEMIA (Reported) Vit C/Hesperidin/Bioflavonoids (Grande-C 500 Tablet) 500 MG-100 MG-100 MG TABLET 500 MG PO DAILY IMMUNE SUPPORT (Reported) Vit D3 & K/Berberine HCl/Hops (Ostera Tablet) 500 UNIT-500 MCG-90 MG-370 MG TABLET 1,000 UNITS PO DAILY HEART HEALTH (Reported) Compliance With Home Meds: GOOD Past History Travel History Traveled to [place] past 21 day No Medical History Blood Transfusion Hx: No Neurological: NONE EENT: NONE Cardiovascular: CAD, hypertension, hyperlipidemia, paroxysmal atrial fibrillation. Saccular aneurysms of thoracic aortic arch, patient has refused any intervention. Respiratory: bronchitis, COPD, HOME O2 Gastrointestinal: NONE Hepatic: NONE Renal: per the patient he also has bladder cancer, follows up with Dr. Sigala, she suggested surgical treatment but patient has refused. Musculoskeletal: NONE Psychiatric: NONE Endocrine: NONE Blood Disorders: NONE Cancer(s): basal cell carcinoma (of the nose), PROSTATE CA BLADDER CA SURFACE BOSS/Reproductive: NONE History of MRSA: No History of VRE: No History of CDIFF: No Isolation History: Standard Influenza Vaccine: 01/30/17 Surgical History Surgical History: ANGIOPLASTY IN GALLBLADDER REMOVAL Past Family/Social History Family History Relations & Conditions if any Relation not specified for: *No pertinent family history Psychosocial History Where do you live? Home Services at Home: None Smoking Status: Former Smoker ETOH Use: occasional use Functional Ability ADLs Independent: dressing, eating, toileting, bathing. Ambulation: cane Review of Systems Review of Systems Constitutional: Denies: chills, diaphoresis, fever. EENTM: Reports: no symptoms. Cardiovascular: Denies: chest pain, palpitations, syncope. Respiratory: Reports: cough, short of breath, sputum production, wheezing. GI: Denies: abdominal pain, nausea, vomiting. Genitourinary: Denies: dysuria, frequency. Musculoskeletal: Reports: no symptoms. Skin: Reports: no symptoms. Neurological/Psychological: Reports: no symptoms. Hematologic/Endocrine: Reports: no symptoms. Immunologic/Allergic: Reports: no symptoms. All Other Systems: Reviewed and Negative Exam & Diagnostic Data Last 24 Hrs of Vital Signs/I&O Vital Signs Date Time Temp Pulse Resp B/P B/P Pulse O2 O2 Flow FiO2 Mean Ox Delivery Rate 08/02 2302 98.3 80 18 110/56 90 08/02 2246 Nasal 3.0L Cannula 08/02 2225 98.4 70 18 99/54 96 Nasal 3.0L Cannula 08/02 1910 98.3 71 16 105/53 94 Nasal 3.0L Cannula 08/02 1607 100.5 73 22 111/55 94 Nasal 3.0L Cannula 08/02 1553 91 Nasal 3.0L Cannula 08/02 1408 98 Nasal 3.0L Cannula 08/02 1400 96 Nasal 3.0L Cannula 08/02 1347 99.0 70 23 171/71 97 Nasal 3.0L Cannula Intake & Output 08/02 1600 08/02 0800 08/02 0000 Intake Total Output Total Balance Patient 63.503 kg Weight Weight Reported by Patient Measurement Method Physical Exam General Appearance Alert, Oriented X3, Cooperative, Mild Distress, mild tachypnea on 2L NC Cardiovascular Regular Rate, Normal S1, Normal S2, No Murmurs Lungs rhonchi on right side, no significant wheezing, no crackles Abdomen Normal Bowel Sounds, Soft, No Tenderness, No Masses Extremities No Clubbing, No Cyanosis, No Edema, Normal Pulses Last 24 Hrs of Labs/Kushal: Laboratory Tests 08/02/17 1730: Urine Color YEL, Urine Clarity CLEAR, Urine pH 6.0, Ur Specific [place] 1.015, Urine Protein NEG, Urine Ketones NEG, Urine Nitrite NEG, Urine Bilirubin NEG, Urine Urobilinogen 0.2, Ur Leukocyte Esterase NEG, Ur Microscopic SEDIMENT EXAMINED, Urine RBC 15-25 H, Urine WBC RARE, Ur Epithelial Cells RARE, Urine Mucus FEW, Urine Hemoglobin MOD H, Urine Glucose NEG 08/02/17 1405: Anion Gap 11, Estimated GFR 48 L, BUN/Creatinine Ratio 16.4, Glucose 109 H, Lactic Acid 1.5, Calcium 8.5, Troponin I < 0.01, CBC w Diff MAN DIFF ORDERED, RBC 3.56 L, MCV 79.7 L, MCH 24.6 L, MCHC 30.9 L, RDW 17.1 H, MPV 7.7, Gran % 85.3 H, Lymphocytes % 3.8 L, Monocytes % 9.0, Eosinophils % 1.0, Basophils % 0.9, Absolute Granulocytes 14.5 H, Segmented Neutrophils 85 H, Band Neutrophils 4, Absolute Lymphocytes 0.6 L, Lymphocytes 3 L, Monocytes 7, Absolute Monocytes 1.5 H, Eosinophils 1, Absolute Eosinophils 0.2, Absolute Basophils 0.2, Platelet Estimate INCREASED, Hypochromic-Microcytic 2+, Poikilocytosis 1+, Anisocytosis 1+, Microcytic Cells 1+, Stomatocytes 1+, Fld Total RBCs Counted 100 Microbiology 08/02 1730 URINE ROUT: Urine Culture - RECD 08/02 1430 NASOPHARYN: Influenza Virus A & B Rapid Smear - COMP Diagnostic Data EKG Results sinus rhythm without ischemic ST changes CXR Results Lungs are well expanded and hyperlucent from chronic emphysematous disease. The peribronchial interstitium appears chronically thickened. Unable to exclude acute bronchitis superimposed on the chronic airway inflammation. No focal consolidation or pleural effusion. Cardiac silhouette remains normal in size. 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 The aneurysm is difficult to precisely measure. It has an estimated transverse dimension of 3.8 cm, compared to 3.4 cm on 09/16/2016 Other Results Echo 01/2016 Normal left ventricular ejection fraction visually estimated at > 65%. No obvious regional wall motion abnormalities. The left atrium is normal in size. There is mild thickening of the mitral valve leaflets with good excursion. There is mild calcification of mitral annulus posteriorly. Mild mitral regurgitation. Diffuse thickening of the aortic valve cusps with midly reduced excursion. There is no hemodynamically significant aortic stenosis. Mild aortic regurgitation. Right ventricular systolic pressure estimated to be elevated at 35- 40 mmHg. Normal aortic root dimension. The aortic arch is not visualized. Assessment/Plan Assessment: 86 year old male with past medical history significant for HTN, HFpEF, CAD, OR 1992 s/p angioplasty, saccular aortic aneurysm, paroxysmal atrial fibrillation on eliquis and amiodarone, COPD on 2 L home O2 ([place]), former smoker, and prostate cancer presents with worsening shortness of breath with exertion. Fall: Check orthostatic blood pressure PT evaluation Monitor for arrhythmia on telemetry Exertional dyspnea: Seems more pulmonary than cardiac at this time chest x-ray shows no evidence of heart failure Check proBNP Check serial troponins and EKGs to rule out myocardial ischemia COPD exacerbation: TRC evaluation, oxygen set up, on 2L NC continuously at home Continue solumedrol 40mg IV Q12H Continue spiriva, symbicort, and nebulized albuterol and ipatropium Azithromycin x 5 days CAD/HFpEF/HTN: Continue lasix, ARB, beta tricia, aspirin No statin on patients medication list? Atrial fibrillation: Continue amiodarone, metoprolol, and eliquis Heart healthy diet DVT ppx-heparin 5000 units subcutaneous q8h DNR/DNI As Ranked By This Provider Problem List: 1. COPD exacerbation 2. CAD (coronary artery disease) 3. HTN (hypertension) Core Measures/Misc (01/16) Acute Coronary Syndrome ACS Diagnosis: No Congestive Heart Failure Congestive Heart Failure Diagnosis No Cerebrovascular Accident CVA/TIA Diagnosis: No VTE (View Protocol) VTE Risk Factors Age>40 No Mechanical VTE Prophylaxis d/t N/A MechProphylax Ordered No VTE Pharm Prophylaxis d/t NA PharmProphylax ordered Sepsis (View protocol) Sepsis Present: No Soraya NEWSOME,Isdccharis 08/03/17 0504: Resident Review Statement Resident Statement: examined this patient, discussed with communications intern, agreed with communications intern Other Findings: 86-year-old male with a past medical history significant for hypertension, heart failure with preserved ejection fraction, regular artery disease, OR status post angioplasty 16 years ago, saccular aortic aneurysm, A. fib, COPD on 2 L at home, prostate cancer and bladder cancer who presented with a chief complaint of worsening dyspnea. He reported dyspnea at baseline that resolved with rest, however for the past 2 days his dyspnea became more frequent, with a shorter distance and does not resolve with rest. He reported mild worsening of his baseline cough and multiple episodes of yellow red sputum. His noticed wheezing for which she presented to the ED for further evaluation. He denies chest pain, palpitation, fever or chills. Just before he entered the ED he felt unsteady and fell on his back, he denies head trauma or loss of consciousness. On admission: Vitals BP 170/70, HR 97, temp 99-100, RR 23, and saturating upper 90s on 3 L of oxygen. Significant labs leukocytosis up to 17,000, H&H 8.8 & 28.4, creatinine 1.4, glucose 109, and negative troponin. Chest x-ray showed COPD and aortic aneurysm increased in size compared to previous imaging. Assessment 86-year-old male with multiple comorbidities presented with shortness breath that's most likely secondary to COPD exacerbation. The patient had fever up to 100.5 while in the ED with leukocytosis on the initial labs. His cough is getting worse with no significant finding on x-ray which make bronchitis most likely diagnosis behind his COPD exacerbation. The patient has a history of CHF however CHF exacerbation is unlikely given no lower extremity edema, no effusion and x-ray and dry on physical exam. Problem list * Exertional dyspnea most likely secondary to COPD exacerbation * Fall * Atrial fibrillation: * CAD * HFpEF * HTN: Plan * Admit to telemetry and rule out ACS * Check orthostatic blood pressure * IV Solu-Medrol 40 mg every 12 * IV azithromycin for 5 days * Panculture * Orthostatic blood pressure * And BNP to the labs * TRC/Nebs * Continue spiriva, symbicort, and nebulized albuterol * Continue lasix, ARB, beta tricia, aspirin * Continue amiodarone, metoprolol, and eliquis * Pulmonology consult with Dr. Bonner in the morning Heart healthy diet DVT ppx Eliquis DNR/DNI FernandaSamueleric 08/03/17 0634: Attending MD Review Statement Attending Statement Attending MD Statement: examined this patient, discuss w/resident/PA/INSURANCE AUDITOR, agreed w/resident/PA/INSURANCE AUDITOR, reviewed EMR data (avail), reviewed images, amended to note Attending Assessment/Plan: CC: Shortness of breath PMH: HTN, heart failure with preserved ejection fraction, CAD S/P stent, prostate cancer, history of COPD on 2 L nasal cannula, paroxysmal A. fib, aortic aneurysm and distal thoracic aneurysm patient was brought in ER by his family for multiple complaints. provided a different history to ER physician, stating that he was getting progressively short of breath, productive cough and then had dizzy spells, lost his balance and fell down just before coming to ER lobby in the parking lot. According to patient he has been feeling sick since last 2-3 days with worsening of shortness of breath, dyspnea on exertion, excessive wheezing, increased cough with yellowish sputum production with blood tinged at times. Today he noticed sore throat with excessive coughing, denies any fever, chills at home, denies any chest pain, chest tightness, pleuritic nature of pain, abdominal pain, nausea, vomiting, dizziness, diarrhea, suprapubic pain, urinary symptoms. He endorses hemorrhoidal bleeding on and off but denies any hematuria, epistaxis. Patient states that he lost balance and missed a step while coming in ER and that's how he fell and did not feel dizzy. Vitals: T max 100.5, pulse 70, RR 23, blood pressure 171/71, saturating 97% on 3 L nasal cannula On exam: A O 3, cooperative, mild respiratory distress, neck supple, JVD normal , no lymphadenopathy, mucosa dry pharyngeal congestion, no focal neurological deficit, no dependent edema, no obvious skin rashes or inflammation CVS: S1-S2, RRR. RS: Bilateral wheezing. Abdomen: Soft, NT, ND, bowel sounds present. CXR: 1. Chronic obstructive pulmonary disease. 2. 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 Assessment and plan 87-year-old male with multiple comorbidities presented in ER for 2 day history of shortness of breath, dyspnea on exertion, wheezing, increased cough with yellow colored sputum production with blood tinged at times with sore throat. All the symptoms appears secondary to COPD exacerbation, patient has mildly increased oxygen requirement from 2 L to 3 L nasal cannula. At the same time patient's hemoglobin is significantly dropped as compared to past, 11.2 in August 2016, 9.7 and June 2017, now 8.8. Gradual drop in H&H could be contributing to the symptoms of dyspnea on exertion. There is no obvious source of bleeding identified, guaiac stool was negative in ER. Patient denies any hematuria, epistaxis. Few days back he had small hemorrhoidal bleeding, not sure if that is contributing to anemia. Patient also has history of heart failure with preserved ejection fraction, paroxysmal A. fib and would benefit from telemetry observation along with ambiguous history dizziness before fall before coming to ER. Patient has low-grade fever and leukocytosis but no obvious source of infection identified at this point. Influenza negative. History of aortic aneurysm but patient has refused intervention in the past. + COPD exacerbation + Symptomatic anemia + Mechanical fall + History of HTN, heart failure with preserved ejection fraction, CAD S/P stent, prostate cancer, history of COPD on 2 L nasal cannula, paroxysmal A. fib, aortic aneurysm and distal thoracic aneurysm - Admit to telemetry - Try to wean off oxygen to his home oxygen - IV methylprednisolone 40 mg every 12 hours - IV azithromycin - TRC nebulization with albuterol and ipratropium scheduled and when necessary - Mucinex scheduled twice a day - Continue rest of the home medications - Serial troponin and ECGs - Blood cultures - At proBNP to the sampling lab - Check LFTs in a.m. - Check iron studies - OT PT evaluation - As patient's is not present bedside need to confirm collateral information with her about the fall and dizziness. - Adequate pain control - DVT prophylaxis
[2017-08-03 06:36] VITALS: BP 118/70
--- NOTE | 2017-08-03 06:37 | Admission Certification ---
Admission Certification Certification Statement - As attending physician, I certify that at the time of - admission, based on clinical presentation, severity of - symptoms, need for further diagnostic testing and - therapeutic interventions, and risk of adverse outcomes - without in-hospital treatment, in my clinical assessment, - this patient requires an acute hospital stay for a minimum - of two nights or longer. I have also considered psychsocial - factors such as support system, advanced age, financial - issues, cognitive issues, and failed out-patient treatments, - past re-admission history, safety of patient, and lack of - compliance as applicable. Specific rationale supporting this admission is: COPD exacerbation
--- NOTE | 2017-08-03 07:17 | PN- Housestaff ---
Tommie NEWSOME,[facility] 08/03/17 0717: Subjective Follow-up For: Fall Anemia COPD ?CHF Tele-Events Since Last Visit: NSR/1st degree heart block HR 69-72 NV .22 Subjective: No acute events overnight. SOB feels better. States he went for walk this AM without oxygen. States he uses 2L @ home, currently on 3L. Review of Systems Constitutional: Reports: see HPI. Objective Last 24 Hrs of Vital Signs/I&O Vital Signs Date Time Temp Pulse Resp B/P B/P Pulse O2 O2 Flow FiO2 Mean Ox Delivery Rate 08/03 1954 95 Nasal 3.0L Cannula 08/03 1600 Nasal 3.0L Cannula 08/03 1426 98.0 68 20 102/40 96 Nasal Cannula 08/03 1357 Nasal 3.0L Cannula 08/03 0947 72 118/70 08/03 0947 72 118/70 08/03 0947 72 118/70 08/03 0947 72 118/70 08/03 0946 72 118/70 08/03 0800 93 Nasal 3.0L Cannula 08/03 0636 97.8 72 20 118/70 93 08/03 0100 96 Nasal 3.0L Cannula 08/02 2302 98.3 80 18 110/56 90 08/02 2246 Nasal 3.0L Cannula 08/02 2225 98.4 70 18 99/54 96 Nasal 3.0L Cannula Intake & Output 08/03 1600 08/03 0800 08/03 0000 Intake Total 780 110 240 Output Total 300 800 Balance 480 110 -560 Intake, IV 280 10 Intake, Oral 500 100 240 Number 0 Bowel Movements Output, Urine 300 800 Patient 140 lb Weight Weight Reported by Patient Measurement Method Physical Exam General Appearance: Alert, Oriented X3, Cooperative Cardiovascular: Regular Rate, Normal S1, Normal S2 Lungs: diffuse rhonchi, diffuse decrease air movement Abdomen: Normal Bowel Sounds, Soft, No Tenderness Vascular: 2+ radial pulses Current Medications: Current Medications Sig/Jimbo Start time Last Medication Dose Route Stop Time Status Admin Albuterol Sulfate 3 ML TID 08/03 1600 AC 08/03 INH 1409 Albuterol Sulfate 3 ML Q4P PRN 08/03 0930 DC 08/03 INH 0922 Albuterol Sulfate 2 PUF Q4-6 PRN PRN 08/03 0230 AC INH Amiodarone HCl 200 MG DAILY 08/03 1000 AC 08/03 PO 0947 Amlodipine Besylate 2.5 MG DAILY 08/04 1000 AC PO Amlodipine Besylate 5 MG DAILY 08/03 1000 DC 08/03 PO 0946 Apixaban 5 MG BID 08/03 1000 AC 08/03 PO 0946 Aspirin Buffered 81 MG DAILY 08/03 1000 AC 08/03 PO 0946 Azithromycin 500 MG DAILY 08/03 1000 AC 08/03 Dextrose/Water 250 ML IV 0948 Budesonide/ 2 PUF BID 08/03 1000 AC 08/03 Formoterol Fumarate INH 0945 Ceftriaxone Sodium 1,000 MG DAILY 08/03 1200 AC 08/03 IV 1434 Ferrous Sulfate 325 MG DAILY 08/03 1500 AC 08/03 PO 1712 Finasteride 5 MG DAILY 08/04 1000 AC PO Furosemide 20 MG DAILY 08/04 1000 AC PO Insulin Aspart 0 TIDAC 08/03 1700 CAN SC Ipratropium [place] 2.5 ML TID 08/03 1600 AC 08/03 INH 1409 Losartan Potassium 25 MG DAILY 08/04 1000 AC PO Losartan Potassium 50 MG DAILY 08/03 1000 DC 08/03 PO 0947 Methylprednisolone 40 MG Q12 08/03 1000 AC 08/03 IV 08/04 0000 0945 Metoprolol Tartrate 25 MG BID 08/03 1000 AC 08/03 PO 0947 Omeprazole 40 MG DAILY AC 08/03 0700 AC 08/03 PO 0547 Prednisone 10 MG DAILY 08/16 1000 AC PO 08/19 0959 Prednisone 20 MG DAILY 08/13 1000 AC PO 08/16 0959 Prednisone 30 MG DAILY 08/10 1000 AC PO 08/13 0959 Prednisone 40 MG DAILY 08/07 1000 AC PO 08/10 0959 Prednisone 50 MG DAILY 08/04 1000 CAN PO 08/19 0959 Prednisone 50 MG DAILY 08/04 1000 AC PO 08/07 0959 Tamsulosin HCl 0.4 MG DAILY 08/03 1000 AC 08/03 PO 0947 Tiotropium [place] 1 PUF DAILY 08/03 1000 DC 08/03 INH 0946 Last 24 Hrs of Lab/Kushal Results Last 24 Hrs of Labs/Mics: Laboratory Tests 08/03/17 0650: Anion Gap 9, Estimated GFR 48 L, BUN/Creatinine Ratio 20.0, Hemoglobin A1c 5.7, Iron 13 L, TIBC 440, Ferritin 18.6, Total Bilirubin 0.4, Direct Bilirubin 0.4, AST 22, ALT 26, Alkaline Phosphatase 102, Troponin I < 0.01, Total Protein 5.4 L, Albumin 2.8 L, Vitamin B12 843, Folate 7.8, CBC w Diff MAN DIFF ORDERED, RBC 3.11 L, MCV 79.2 L, MCH 25.1 L, MCHC 31.8 L, RDW 17.5 H, MPV 8.3, Gran % 92.9 H, Lymphocytes % 3.3 L, Monocytes % 3.8, Eosinophils % 0, Basophils % 0, Absolute Granulocytes 14.6 H, Segmented Neutrophils 76 H, Band Neutrophils 15 H, Absolute Lymphocytes 0.5 L, Lymphocytes 4 L, Monocytes 5, Absolute Monocytes 0.6, Absolute Eosinophils 0, Absolute Basophils 0, Platelet Estimate VERIFIED BY SMEAR, Polychromasia 1+, Hypochromic-Microcytic 2+, Anisocytosis 1+ 08/03/17 0500: Sodium Cancelled, Potassium Cancelled, Chloride Cancelled, Carbon Dioxide Cancelled, Anion Gap Cancelled, BUN Cancelled, Creatinine Cancelled, BUN/ Creatinine Ratio Cancelled, CBC w Diff Cancelled, WBC Cancelled, RBC Cancelled, Hgb Cancelled, Hct Cancelled, MCV Cancelled, MCH Cancelled, MCHC Cancelled, RDW Cancelled, Plt Count Cancelled, MPV Cancelled 08/03/17 0112: Troponin I < 0.01, [id number] Pept 1650 H Microbiology 08/03 1730 URINE ROUT: Legionella Antigen - COMP 08/03 1730 URINE ROUT: Streptococcus pneumoniae Antigen (M - COMP 08/03 0735 LOWER RESP: Respiratory Culture - RES 08/03 0735 LOWER RESP: Gram Stain - RES 08/03 0648 BLOOD: Blood Culture - RECD 08/04 647 BLOOD: Blood Culture - RECD Assessment/Plan Assessment: A: 86 year old male with past medical history significant for HTN, HFpEF, CAD, [place] 1991 s/p angioplasty, saccular aortic aneurysm, paroxysmal atrial fibrillation on eliquis and amiodarone, COPD on 2 L home O2 ([place]), former smoker, and prostate cancer presents with worsening shortness of breath with exertion. P: #Fall: Trops <.01x3 -Check orthostatic blood pressure -PT evaluation #anemia h/h 7.8/24.6 Iron studies: iron 13, TIBC 440, tracy 186 -f/u b12, folate, -cont to monitor -typed and cross -pt unsure who he got colonoscopy from in the last 10 years #Exertional dyspnea 2/2 more likely COPD vs pneumonia vs CHF: Probnp 1650 CXR: copd and increasing aneusym of aortic arch WBC remains elevated -cont trc nebs -cont IV steroids with transition to pos teroids tomorrow - sputum cx -f/u urinary antigens -add ceftriaxone, cont azithromycin -hold spiriva until dc, cont symbicort #elevated blood surgar One time read of 348 Normal hgbA1c -cont to monitor -low dose novolog if needed as pt on steroids #CKD Cr 1.4 - baseline -cont to monitor #CAD/HFpEF/HTN/BPH: -Continue lasix, ARB, beta tricia, aspirin, finasteride, losartan, amlodipine #Atrial fibrillation: -Continue amiodarone, metoprolol, and eliquis #DVT ppx - apixaban #DNR/DNI Problem List: 1. COPD (chronic obstructive pulmonary disease) 2. Anemia 3. Fall 4. CHF (congestive heart failure) Pain Ratin Pain Location: none Pain Goal: Pain 4 or less Pain Plan: pain pathway Tomorrow's Labs & Rationales: cbc bep Isela Chaney MD 08/03/17 1111: Attending MD Review Statement Attending Statement Attending MD Statement: examined this patient, discuss w/resident/PA/TRIM MASTER OPERATOR, agreed w/resident/PA/TRIM MASTER OPERATOR, reviewed EMR data (avail) Attending Assessment/Plan: 87M PMH HTN, HFpEF, CAD S/P stent, prostate cancer, COPD on 2 L [place], paroxysmal atrial fibrillation on Eliquis and Amiodarone, aortic aneurysm and distal thoracic aneurysm admitted with several days of worsening productive cough and dyspnea with dizziness and near fall on day of admission in the setting of COPD exacerbation secondary to acute bronchitis, with course complicated by symptomatic anemia that appears to be chronically worsening with no obvious etiology. Patient feels well today. Requiring 3L NC to maintain saturation. He is breathing comfortably and was able to walk without dyspnea, chest pain, or dizziness. Labs show WBC 15, Hgb down to 7.8 with low iron. CXR negative for pneumonia. Exam benign. 1. COPD Exacerbation 2. Acute bronchitis 3. Near syncope 4. Symptomatic iron deficiency anemia 5. Acute on chronic hypoxemic respiratory failure Plan - Continue on telemetry - Start iron supplement - Continue Prednisone taper - Nebulizer treatments - Ceftriaxone and Azithromycin - Follow sputum culture - Obtain records for last colonoscopy - Continue home medications - Eliquis for DVT PPx
[2017-08-03 08:16] LABS: ABSOLUTE BASOPHIL COUNT 0 /CUMM (0.0-0.2); ABSOLUTE EOSINOPHIL COUNT 0 /CUMM (0.0-0.7); ABSOLUTE GRANULOCYTE CT 14.6 /CUMM (1.4-6.5); ABSOLUTE LYMPH COUNT 0.5 /CUMM (1.2-3.4); ABSOLUTE MONOCYTE COUNT 0.6 /CUMM (0.10-0.60); BASOPHIL % 0 % (0.0-2.0); EOSINOPHIL % 0 % (0-5); GRANULOCYTE % 92.9 % (42.2-75.2); HEMATOCRIT 24.6 % (42-52); MEAN CORPUSCULAR HGB 25.1 PG (27.0-31.0); MEAN CORPUSCULAR HGB CONC 31.8 G/DL (33.0-37.0); MEAN CORPUSCULAR VOLUME 79.2 FL (80.0-94.0); MEAN PLATELET VOLUME 8.3 FL (7.4-10.4); PLATELET COUNT 445 /CUMM (130-400); RBC DISTRIBUTION WIDTH 17.5 % (11.5-14.5); RED BLOOD CELL CT 3.11 /CUMM (4.70-6.10); WHITE BLOOD CELL COUNT 15.8 /CUMM (4.8-10.8)
--- NOTE | 2017-08-03 09:42 | Cons- Pulmonary ---
General Information and HPI Consulting Request Date of Consult: 08/03/17 Requested By: med team History of Present Illness: 86 year old male with past medical history significant for HTN, HFpEF, CAD, [place] 1991 s/p angioplasty, saccular aortic aneurysm, paroxysmal atrial fibrillation on eliquis and amiodarone, COPD on 2 L home O2 ([place]), former smoker, prostate cancer, and bladder cancer (patient has elected not to treat at this time) with Dr. Sigala presented with complaints of acute onset of dyspnea. According to the patient for the past two days he has had progressively worsening dyspnea. He is on 2L of continuous oxygen at home. He normally is able to ambulate from room to room at home with a cane with moderate dyspnea then resolves with sitting and resting but for the past few days he is unable to walk as far and takes substantially longer to catch his breath after rest. He denies resting dyspnea and orthopnea. He has a chronic productive cough of clear sputum but lately it has been red tinged which he isn't sure if is blood. He does complain of a sore and dry throat. His told him that he has been wheezing. Walking into the emergency department the patient fell in the parking lot. He denied any loss of consciousness and head strike. He feels like lately his gait has been unsteady but denies feel vertigo or lightheaded, chest pains, palpations, nausea or diaphoresis prior to the falls or at any time recently. The patient was treated with nebulized albuterol, ipatropium and 125mg of solumedrol in the emergency department and admitted to telemetry. Since admission has improved and has a low grade temp, with yellow and green sputum Allergies/Medications Allergies: Coded Allergies: NO KNOWN ALLERGIES (UNKNOWN 09/17/16) Home Med List: Albuterol Sulfate (Proair Hfa) 90 MCG HFA.AER.AD 2 PUF INH Q4-6 PRN PRN COPD Amiodarone (Cordarone) 200 MG TABLET 200 MG PO DAILY HEART Amlodipine Besylate 5 MG TABLET 5 MG PO DAILY HEART HEALTH (Reported) Anusol Hc (Anusol-Hc) 25 MG SUPP.RECT 1 SUP RC BID PRN HEMORRHOIDS Apixaban (Eliquis) 5 MG TABLET 5 MG PO BID BLOOD THINNER Aspirin (Ecotrin*) 81 MG TABLET. 81 MG PO DAILY HEART HEALTH (Reported) Budesonide/Formoterol Fumarate (Symbicort 160-4.5 Mcg Inhaler) 160 MCG-4.5 MCG/ ACTUATION HFA.AER.AD 2 PUF INH BID COPD Losartan Potassium 50 MG TABLET 50 MG PO DAILY HIGH BLOOD PRESSURE Metoprolol Tartrate (Lopressor) 50 MG TABLET 25 MG PO BID HIGH BLOOD PRESSURE (Reported) Omeprazole 20 MG TABLET. 20 MG PO DAILY ACID REFLUX Tamsulosin HCl (Flomax) 0.4 MG CAP.ER.24H 0.4 MG PO DAILY urinary retention Tiotropium [place] (Spiriva) 18 MCG CAP.W.DEV 1 CAP INH DAILY COPD Vit B12/FA/Pyridoxine HCl/Aa15 (Glycotrol Capsule) 500 MCG-400 MCG-10 MG-400 MG CAPSULE 100 MCG PO DAILY ANEMIA (Reported) Vit C/Hesperidin/Bioflavonoids (Grande-C 500 Tablet) 500 MG-100 MG-100 MG TABLET 500 MG PO DAILY IMMUNE SUPPORT (Reported) Vit D3 & K/Berber[place] HCl/Hops (Ostera Tablet) 500 UNIT-500 MCG-90 MG-370 MG TABLET 1,000 UNITS PO DAILY HEART HEALTH (Reported) Review of Systems Comments Denies: chills, diaphoresis, fever. EENTM: Reports: no symptoms. Cardiovascular: Denies: chest pain, palpitations, syncope. Respiratory: Reports: cough, short of breath, sputum production, wheezing. GI: Denies: abdominal pain, nausea, vomiting. Genitourinary: Denies: dysuria, frequency. Musculoskeletal: Reports: no symptoms. Skin: Reports: no symptoms. Neurological/Psychological: Reports: no symptoms. Hematologic/Endocrine: Reports: no symptoms. Immunologic/Allergic: Reports: no symptoms. All Other Systems: Reviewed and Negative Past History Travel History Traveled to [place] past 21 day No Medical History Blood Transfusion Hx: No Neurological: NONE EENT: NONE Cardiovascular: CAD, hypertension, hyperlipidemia, paroxysmal atrial fibrillation. Saccular aneurysms of thoracic aortic arch, patient has refused any intervention. Respiratory: bronchitis, COPD, HOME O2 Gastrointestinal: NONE Hepatic: NONE Renal: per the patient he also has bladder cancer, follows up with Dr. Sigala, she suggested surgical treatment but patient has refused. 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 Home Services at Home: None Smoking Status: Former Smoker ETOH Use: occasional use Functional Ability ADLs Independent: dressing, eating, toileting, bathing. Ambulation: cane Exam & Diagnostic Data Last 24 Hrs of Vital Signs/I&O Vital Signs Date Time Temp Pulse Resp B/P B/P Pulse O2 O2 Flow FiO2 Mean Ox Delivery Rate 08/03 0636 97.8 72 20 118/70 93 08/03 0100 96 Nasal 3.0L Cannula 08/02 2302 98.3 80 18 110/56 90 08/02 2246 Nasal 3.0L Cannula 08/02 2225 98.4 70 18 99/54 96 Nasal 3.0L Cannula 08/02 1910 98.3 71 16 105/53 94 Nasal 3.0L Cannula 08/02 1607 100.5 73 22 111/55 94 Nasal 3.0L Cannula 08/02 1553 91 Nasal 3.0L Cannula 08/02 1408 98 Nasal 3.0L Cannula 08/02 1400 96 Nasal 3.0L Cannula 08/02 1347 99.0 70 23 171/71 97 Nasal 3.0L Cannula Intake & Output 08/03 1600 08/03 0800 08/03 0000 Intake Total 110 240 Output Total 800 Balance 110 -560 Intake, IV 10 Intake, Oral 100 240 Output, Urine 800 Patient 140 lb Weight Weight Reported by Patient Measurement Method Last 48 Hrs of Labs/Kushal: Laboratory Tests 08/03/17 0650: Anion Gap 9, Estimated GFR 48 L, BUN/Creatinine Ratio 20.0, Iron 13 L, TIBC 440, Ferritin 18.6, Total Bilirubin 0.4, Direct Bilirubin 0.4, AST 22, ALT 26, Alkaline Phosphatase 102, Troponin I < 0.01, Total Protein 5.4 L, Albumin 2.8 L, CBC w Diff Pending, WBC Pending, RBC Pending, Hgb Pending, Hct Pending, MCV Pending, MCH Pending, MCHC Pending, RDW Pending, Plt Count Pending, MPV Pending, Gran % Pending, Lymphocytes % Pending, Monocytes % Pending, Eosinophils % Pending, Basophils % Pending, Absolute Granulocytes Pending, Absolute Lymphocytes Pending, Absolute Monocytes Pending, Absolute Eosinophils Pending, Absolute Basophils Pending 08/03/17 0500: Sodium Cancelled, Potassium Cancelled, Chloride Cancelled, Carbon Dioxide Cancelled, Anion Gap Cancelled, BUN Cancelled, Creatinine Cancelled, BUN/ Creatinine Ratio Cancelled, CBC w Diff Cancelled, WBC Cancelled, RBC Cancelled, Hgb Cancelled, Hct Cancelled, MCV Cancelled, MCH Cancelled, MCHC Cancelled, RDW Cancelled, Plt Count Cancelled, MPV Cancelled 08/03/17 0112: Troponin I < 0.01, [id number] Pept 1650 H 08/02/17 1730: Urine Color YEL, Urine Clarity CLEAR, Urine pH 6.0, Ur Specific [place] 1.015, Urine Protein NEG, Urine Ketones NEG, Urine Nitrite NEG, Urine Bilirubin NEG, Urine Urobilinogen 0.2, Ur Leukocyte Esterase NEG, Ur Microscopic SEDIMENT EXAMINED, Urine RBC 15-25 H, Urine WBC RARE, Ur Epithelial Cells RARE, Urine Mucus FEW, Urine Hemoglobin MOD H, Urine Glucose NEG 08/02/17 1405: Anion Gap 11, Estimated GFR 48 L, BUN/Creatinine Ratio 16.4, Glucose 109 H, Lactic Acid 1.5, Calcium 8.5, Troponin I < 0.01, CBC w Diff MAN DIFF ORDERED, RBC 3.56 L, MCV 79.7 L, MCH 24.6 L, MCHC 30.9 L, RDW 17.1 H, MPV 7.7, Gran % 85.3 H, Lymphocytes % 3.8 L, Monocytes % 9.0, Eosinophils % 1.0, Basophils % 0.9, Absolute Granulocytes 14.5 H, Segmented Neutrophils 85 H, Band Neutrophils 4, Absolute Lymphocytes 0.6 L, Lymphocytes 3 L, Monocytes 7, Absolute Monocytes 1.5 H, Eosinophils 1, Absolute Eosinophils 0.2, Absolute Basophils 0.2, Platelet Estimate INCREASED, Hypochromic-Microcytic 2+, Poikilocytosis 1+, Anisocytosis 1+, Microcytic Cells 1+, Stomatocytes 1+, Fld Total RBCs Counted 100 Microbiology 08/02 1430 NASOPHARYN: Influenza Virus A & B Rapid Smear - COMP Assessment/Plan Impression/Plan: SIGNIFICANT DATA Chest x-ray showed COPD with aneurysm from the aortic arch CT scan of the abdomen done 2 days ago which showed largely collapsed colon with wall thickening likely due to under distention, bilaterally while hernia. Previous CTA had shown a large penetrating ulcer in the aorta Previous echo showed moderate pulmonary hypertension with normal ejection fraction Cultures pending influenza swab negative Creatinine 1.4 which is at his baseline lactic acid level was normal White count elevated at 17 with a left shift with elevated platelets hemoglobin chronically low but she is more anemic now at 8.8 General Appearance Alert, Oriented X3, Cooperative, Mild Distress, mild tachypnea on 2L [place] Cardiovascular Regular Rate, Normal S1, Normal S2, No Murmurs Lungs rhonchi on right side, no significant wheezing, no crackles Abdomen Normal Bowel Sounds, Soft, No Tenderness, No Masses Extremities No Clubbing, No Cyanosis, No Edema, Normal Pulses IMPRESSION This is a gentleman with history of 40 pack smoking history, quit more than 10 years ago, ischemic heart disease, previous alcohol use, diastolic heart disease , hiatal hernia with Zenker's diverticulum, severe COPD, previous history of prostate cancer, ischemic heart disease with previous angioplasty, significant aortic aneurysm versus contained dissection managed medically, previous urinary retention with remote history of prostate ca, history of bladder ca (details not available) now comes in with * Acute severe COPD exacerbation with hypoxemia, with fever yellow sputum and elevated wbc * End-stage COPD, with pulmonary hypertension, cor pulmonale * Significant aortic aneurysm with 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 He is a poor surgical candidate. * Paroxysmal atrial fibrillation. Patient on eloquis and amiodarone * REcent rectal bleed, pt on eloquis with anemia * On moderate beta tricia for his significant aortic dilatation versus aneurysm. * Previous history of prostate cancer with BPH, with recent history of bladder ca * Hypertension. * Remote history of alcohol, but has not been drinking lately. * Sig inguinal hernia RECOMMENDATION * Prednisone 50 mg daily and slow taper from tomorrow. * Sputum culture. * Add ceftriaxone, and check urinary antigens * nebs atc with duo neb and hold spiriva till dc, cont symbicort * Watch * DuoNeb prn * Watch for anemia and rectal bleed * Ask cardio if he needs both asa and eloquis Consult Acknowledgment - Thank you for your consult request.
[2017-08-03 14:26] VITALS: BP 102/40
[2017-08-03] MEDS ORDERED: FINASTERIDE5 M1 PO (15:30)
[2017-08-03] MEDS ORDERED: LOSARTAN POTASS50 M1 PO (15:31)
[2017-08-03] MEDS ORDERED: LASIX20 M1 PO (15:31)
[2017-08-03 22:01] VITALS: BP 104/40
[2017-08-04 07:10] VITALS: BP 112/62
[2017-08-04 08:15] LABS: MEAN PLATELET VOLUME 8.4 FL (7.4-10.4)
--- NOTE | 2017-08-04 08:23 | PN- Housestaff ---
Tommie NEWSOME,[facility] 08/04/17 0823: Subjective Follow-up For: Fall Anemia COPD ?CHF Tele-Events Since Last Visit: NSR / 1st degree HB HR 65-70 .22 Subjective: No acute events overnight. States resting SOB back to baseline. States he did feel very SOB walking to bathroom, which is not normal. Review of Systems Constitutional: Reports: see HPI. Objective Last 24 Hrs of Vital Signs/I&O Vital Signs Date Time Temp Pulse Resp B/P B/P Pulse O2 O2 Flow FiO2 Mean Ox Delivery Rate 08/04 0839 93 Nasal 3.0L Cannula 08/04 0710 97.6 70 18 112/62 94 Nasal 3.0L Cannula 08/04 0000 Nasal 3.0L Cannula 08/03 2201 98.5 80 20 104/40 94 Nasal 3.0L Cannula 08/03 2200 80 104/40 08/03 1954 95 Nasal 3.0L Cannula 08/03 1600 Nasal 3.0L Cannula 08/03 1426 98.0 68 20 102/40 96 Nasal Cannula 08/03 1357 Nasal 3.0L Cannula 08/03 0947 72 118/70 08/03 0947 72 118/70 08/03 0947 72 118/70 08/03 0947 72 118/70 08/03 0946 72 118/70 Intake & Output 08/04 1600 08/04 0800 08/04 0000 Intake Total 110 200 Output Total 450 Balance 110 -250 Intake, IV 10 Intake, Oral 100 200 Output, Urine 450 Patient 141 lb Weight Weight Bed scale Measurement Method Physical Exam General Appearance: Alert, Oriented X3, Cooperative Cardiovascular: Regular Rate, Normal S1, Normal S2 Lungs: Clear to Auscultation, Normal Air Movement Abdomen: Normal Bowel Sounds, Soft, No Tenderness Extremities: no LE edema Vascular: 2+ radial pulses Current Medications: Current Medications Sig/Jimbo Start time Last Medication Dose Route Stop Time Status Admin Albuterol Sulfate 3 ML TID 08/03 1600 AC 08/04 INH 0837 Albuterol Sulfate 2 PUF Q4-6 PRN PRN 08/03 0230 AC INH Amiodarone HCl 200 MG DAILY 08/03 1000 AC 08/03 PO 0947 Amlodipine Besylate 2.5 MG DAILY 08/04 1000 AC 08/04 PO 1039 Amlodipine Besylate 5 MG DAILY 08/03 1000 DC 08/03 PO 0946 Apixaban 5 MG BID 08/03 1000 AC 08/04 PO 1036 Aspirin Buffered 81 MG DAILY 08/03 1000 AC 08/03 PO 0946 Azithromycin 500 MG DAILY 08/03 1000 DC 08/03 Dextrose/Water 250 ML IV 0948 Budesonide/ 2 PUF BID 08/03 1000 AC 08/04 Formoterol Fumarate INH 1046 Ceftriaxone Sodium 1,000 MG DAILY 08/03 1200 AC 08/04 IV 1049 Ferrous Sulfate 325 MG DAILY 08/03 1500 AC 08/04 PO 1037 Finasteride 5 MG DAILY 08/04 1000 AC 08/04 PO 1038 Furosemide 20 MG DAILY 08/04 1000 AC 08/04 PO 1040 Guaifenesin/Codeine 10 ML Q4P PRN 08/04 0530 AC 08/04 Phosphate PO 0531 Insulin Aspart 0 TIDAC 08/03 1700 CAN SC Ipratropium [place] 2.5 ML TID 08/03 1600 AC 08/04 INH 0837 Losartan Potassium 25 MG DAILY 08/04 1000 AC 08/04 PO 1040 Losartan Potassium 50 MG DAILY 08/03 1000 DC 08/03 PO 0947 Methylprednisolone 40 MG Q12 08/03 1000 DC 08/03 IV 08/04 0000 2208 Metoprolol Tartrate 25 MG BID 08/03 1000 AC 08/04 PO 1038 Omeprazole 40 MG DAILY AC 08/03 0700 AC 08/04 PO 0523 Patient Medication 1 ED ONE ONE 08/04 1045 DC Teaching ED 08/04 1046 Polyethylene Glycol 17 GM DAILY 08/04 1034 AC PO Prednisone 10 MG DAILY 08/16 1000 CAN PO 08/19 0959 Prednisone 5 MG DAILY 08/16 1000 AC PO 08/19 0959 Prednisone 20 MG DAILY 08/13 1000 CAN PO 08/16 0959 Prednisone 10 MG DAILY 08/13 1000 AC PO 08/16 0959 Prednisone 30 MG DAILY 08/10 1000 CAN PO 08/13 0959 Prednisone 20 MG DAILY 08/10 1000 AC PO 08/13 0959 Prednisone 40 MG DAILY 08/07 1000 CAN PO 08/10 0959 Prednisone 30 MG DAILY 08/07 1000 AC PO 08/10 0959 Prednisone 50 MG DAILY 08/04 1000 CAN PO 08/19 0959 Prednisone 50 MG DAILY 08/04 1000 CAN PO 08/07 0959 Prednisone 40 MG DAILY 08/04 1000 CAN PO 08/19 0959 Prednisone 40 MG DAILY 08/04 1000 AC 08/04 PO 08/07 0959 1043 Tamsulosin HCl 0.4 MG DAILY 08/03 1000 AC 08/03 PO 0947 Tiotropium [place] 1 PUF DAILY 08/03 1000 DC 08/03 INH 0946 Last 24 Hrs of Lab/Kushal Results Last 24 Hrs of Labs/Mics: Laboratory Tests 08/04/17 0612: Anion Gap 11, Estimated GFR 38 L, BUN/Creatinine Ratio 22.9, CBC w Diff MAN DIFF ORDERED, RBC 2.86 L, MCV 79.8 L, MCH 25.0 L, MCHC 31.3 L, RDW 17.4 H, MPV 8.4, Gran % 91.8 H, Lymphocytes % 3.9 L, Monocytes % 4.3, Eosinophils % 0, Basophils % 0, Absolute Granulocytes 13.0 H, Segmented Neutrophils 89 H, Band Neutrophils 6 H, Absolute Lymphocytes 0.5 L, Lymphocytes 3 L, Monocytes 2, Absolute Monocytes 0.6, Absolute Eosinophils 0, Absolute Basophils 0, Platelet Estimate ADEQUATE, Hypochromic-Microcytic 2+, Poikilocytosis 1+, Anisocytosis 1+ , Microcytic Cells 1+, Ovalocytes Microbiology 08/03 1729 URINE ROUT: Legionella Antigen - COMP 08/03 1729 URINE ROUT: Streptococcus pneumoniae Antigen (M - COMP Assessment/Plan Assessment: A: 86 year old male with past medical history significant for HTN, HFpEF, CAD, [place] 1991 s/p angioplasty, saccular aortic aneurysm, paroxysmal atrial fibrillation on eliquis and amiodarone, COPD on 2 L home O2 ([place]), former smoker, and prostate cancer presents with worsening shortness of breath with exertion. P: #Fall: Trops <.01x3 -Check orthostatic blood pressure -PT evaluation: home PT #anemia h/h 7.8/24.6 -> 7.1/22.8 Iron studies: iron 13, TIBC 440, tracy 186 B12, folate normal Guaiac positive -peripheral smear results -holding aspirin, eliquis -f/u GI consult -cont to monitor -typed and cross -pt unsure who he got colonoscopy from in the last 10 years -hgb goal >8 #Exertional dyspnea 2/2 more likely COPD vs pneumonia: Probnp 1650 CXR: copd and increasing aneusym of aortic arch WBC remains elevated Urinary antigens, flu negative LRC growing gram negatives rods -cont trc nebs -transition to pos teroids today - sputum cx -add ceftriaxone, cont azithromycin -hold spiriva until dc, cont symbicort #elevated blood surgar Elevated blood sugars most likely due to steroids Normal hgbA1c -cont to monitor -low dose novolog #CKD Cr 1.7 - baseline -cont to monitor #CAD/HFpEF/HTN/BPH: -Continue lasix, ARB, beta tricia, aspirin, finasteride, losartan, amlodipine #Atrial fibrillation: -Continue amiodarone but decreased to 100mg daily, metoprolol, and eliquis #DVT ppx - ALPS due to anemia and + stool guaic #DNR/DNI Problem List: 1. COPD (chronic obstructive pulmonary disease) 2. Anemia 3. Fall Pain Ratin Pain Location: none Pain Goal: Pain 4 or less Pain Plan: pain pathway Tomorrow's Labs & Rationales: cbc Shiv NEWSOME,[place] 08/04/17 1056: Attending MD Review Statement Attending Statement Attending MD Statement: examined this patient, discuss w/resident/PA/LUMBER SALVAGER, agreed w/resident/PA/LUMBER SALVAGER, reviewed EMR data (avail) Attending Assessment/Plan: 87M PMH HTN, HFpEF, CAD S/P stent, prostate cancer, COPD on 2 L NC, paroxysmal atrial fibrillation on Eliquis and Amiodarone, aortic aneurysm and distal thoracic aneurysm admitted with several days of worsening productive cough and dyspnea with dizziness and near fall on day of admission in the setting of COPD exacerbation secondary to acute bronchitis, with course complicated by symptomatic anemia that appears to be chronically worsening with no obvious etiology. Patient feels well today. Requiring 3L NC to maintain saturation. He is breathing comfortably and was able to walk without dyspnea, chest pain, or dizziness. His Hgb is down to 7.1. I suspect he may have an underlying GI bleed, due to the Prednisone, ASA, and Eliquis. However he remains hemodynamically stable. 1. COPD Exacerbation 2. Acute bronchitis 3. Near syncope 4. Symptomatic iron deficiency anemia 5. Acute on chronic hypoxemic respiratory failure Plan - Continue on telemetry - Obtain GI consult - Discontinue ASA for now - Continue iron supplement - Continue Prednisone taper - Nebulizer treatments - Ceftriaxone and Azithromycin - Follow sputum culture - Obtain records for last colonoscopy - Continue home medications - Eliquis for DVT PPx
[2017-08-04 08:44] LABS: ABSOLUTE BASOPHIL COUNT 0 /CUMM (0.0-0.2); ABSOLUTE EOSINOPHIL COUNT 0 /CUMM (0.0-0.7); ABSOLUTE LYMPH COUNT 0.5 /CUMM (1.2-3.4); ABSOLUTE MONOCYTE COUNT 0.6 /CUMM (0.10-0.60); BASOPHIL % 0 % (0.0-2.0); EOSINOPHIL % 0 % (0-5); GRANULOCYTE % 91.8 % (42.2-75.2); HEMATOCRIT 22.8 % (42-52); MEAN CORPUSCULAR HGB CONC 31.3 G/DL (33.0-37.0); MEAN CORPUSCULAR VOLUME 79.8 FL (80.0-94.0); PLATELET COUNT 408 /CUMM (130-400); RBC DISTRIBUTION WIDTH 17.4 % (11.5-14.5); RED BLOOD CELL CT 2.86 /CUMM (4.70-6.10); WHITE BLOOD CELL COUNT 14.1 /CUMM (4.8-10.8)
--- NOTE | 2017-08-04 09:09 | PN- Pulmonary ---
Subjective HPI/Critical Care Issues: Doing ok mild wheezing fatigue Objective Current Medications: Current Medications Sig/Jimbo Start time Last Medication Dose Route Stop Time Status Admin Albuterol Sulfate 3 ML TID 08/03 1600 AC 08/04 INH 0837 Albuterol Sulfate 3 ML Q4P PRN 08/03 0930 DC 08/03 INH 0922 Albuterol Sulfate 2 PUF Q4-6 PRN PRN 08/03 0230 AC INH Amiodarone HCl 200 MG DAILY 08/03 1000 AC 08/03 PO 0947 Amlodipine Besylate 2.5 MG DAILY 08/04 1000 AC PO Amlodipine Besylate 5 MG DAILY 08/03 1000 DC 08/03 PO 0946 Apixaban 5 MG BID 08/03 1000 AC 08/03 PO 2200 Aspirin Buffered 81 MG DAILY 08/03 1000 AC 08/03 PO 0946 Azithromycin 500 MG DAILY 08/03 1000 AC 08/03 Dextrose/Water 250 ML IV 0948 Budesonide/ 2 PUF BID 08/03 1000 AC 08/03 Formoterol Fumarate INH 2207 Ceftriaxone Sodium 1,000 MG DAILY 08/03 1200 AC 08/03 IV 1434 Ferrous Sulfate 325 MG DAILY 08/03 1500 AC 08/03 PO 1712 Finasteride 5 MG DAILY 08/04 1000 AC PO Furosemide 20 MG DAILY 08/04 1000 AC PO Guaifenesin/Codeine 10 ML Q4P PRN 08/04 0530 AC 08/04 Phosphate PO 0531 Insulin Aspart 0 TIDAC 08/03 1700 CAN SC Ipratropium [place] 2.5 ML TID 08/03 1600 AC 08/04 INH 0837 Losartan Potassium 25 MG DAILY 08/04 1000 AC PO Losartan Potassium 50 MG DAILY 08/03 1000 DC 08/03 PO 0947 Methylprednisolone 40 MG Q12 08/03 1000 DC 08/03 IV 08/04 0000 2208 Metoprolol Tartrate 25 MG BID 08/03 1000 AC 08/03 PO 0947 Omeprazole 40 MG DAILY AC 08/03 0700 AC 08/04 PO 0523 Prednisone 10 MG DAILY 08/16 1000 AC PO 08/19 0959 Prednisone 20 MG DAILY 08/13 1000 AC PO 08/16 0959 Prednisone 30 MG DAILY 08/10 1000 AC PO 08/13 0959 Prednisone 40 MG DAILY 08/07 1000 AC PO 08/10 0959 Prednisone 50 MG DAILY 08/04 1000 CAN PO 08/19 0959 Prednisone 50 MG DAILY 08/04 1000 AC PO 08/07 0959 Tamsulosin HCl 0.4 MG DAILY 08/03 1000 AC 08/03 PO 0947 Tiotropium [place] 1 PUF DAILY 08/03 1000 DC 08/03 INH 0946 Laboratory Tests 08/04 08/03 0612 0650 Chemistry Sodium (137 - 145 mmol/L) 134 L 136 L Potassium (3.5 - 5.1 mmol/L) 4.9 4.6 Chloride (98 - 107 mmol/L) 100 101 Carbon Dioxide (22 - 30 mmol/L) 23 26 Anion Gap (5 - 16) 11 9 BUN (9 - 20 mg/dL) 39 H 28 H Creatinine (0.7 - 1.2 mg/dL) 1.7 H 1.4 H Estimated GFR (>60 ml/min) 38 L 48 L BUN/Creatinine Ratio (7 - 25 %) 22.9 20.0 Hemoglobin A1c (4.2 - 5.8 %) 5.7 Iron (49 - 181 ug/dL) 13 L TIBC (261 - 462 ug/dL) 440 Ferritin (17.9 - 464 ng/mL) 18.6 Total Bilirubin (0.2 - 1.3 mg/dL) 0.4 Direct Bilirubin (< 0.4 mg/dL) 0.4 AST (17 - 59 U/L) 22 ALT (21 - 72 U/L) 26 Alkaline Phosphatase (< 127 U/L) 102 Troponin I (<0.11 ng/ml) < 0.01 Total Protein (6.3 - 8.2 g/dL) 5.4 L Albumin (3.5 - 5.0 g/dL) 2.8 L Vitamin B12 (239 - 931 pg/mL) 843 Folate (2.76 - 20.0 ng/mL) 7.8 Hematology CBC w Diff MAN DIFF ORDERED MAN DIFF ORDERED WBC (4.8 - 10.8 /CUMM) Pending 15.8 H RBC (4.70 - 6.10 /CUMM) Pending 3.11 L Hgb (14.0 - 18.0 G/DL) Pending 7.8 L Hct (42 - 52 %) Pending 24.6 L MCV (80.0 - 94.0 FL) Pending 79.2 L MCH (27.0 - 31.0 PG) Pending 25.1 L MCHC (33.0 - 37.0 G/DL) Pending 31.8 L RDW (11.5 - 14.5 %) Pending 17.5 H Plt Count (130 - 400 /CUMM) Pending 445 H MPV (7.4 - 10.4 FL) Pending 8.3 Gran % (42.2 - 75.2 %) Pending 92.9 H Lymphocytes % (20.5 - 51.1 %) Pending 3.3 L Monocytes % (1.7 - 9.3 %) Pending 3.8 Eosinophils % (0 - 5 %) Pending 0 Basophils % (0.0 - 2.0 %) Pending 0 Absolute Granulocytes (1.4 - 6.5 /CUMM) Pending 14.6 H Segmented Neutrophils (42.2 - 75.2 %) Pending 76 H Band Neutrophils (0.0 - 5.0 %) 15 H Absolute Lymphocytes (1.2 - 3.4 /CUMM) Pending 0.5 L Lymphocytes (20.5 - 51.1 %) 4 L Monocytes (1.7 - 9.3 %) 5 Absolute Monocytes (0.10 - 0.60 /CUMM) Pending 0.6 Absolute Eosinophils (0.0 - 0.7 /CUMM) Pending 0 Absolute Basophils (0.0 - 0.2 /CUMM) Pending 0 Platelet Estimate (ADEQUATE) VERIFIED BY SMEAR Polychromasia 1+ Hypochromic-Microcytic 2+ Anisocytosis 1+ 08/03 08/03 04/03 0500 0112 1730 Chemistry Sodium Cancelled Potassium Cancelled Chloride Cancelled Carbon Dioxide Cancelled Anion Gap Cancelled BUN Cancelled Creatinine Cancelled BUN/Creatinine Ratio Cancelled Troponin I (<0.11 ng/ml) < 0.01 [id number] Pept (<125 pg/mL) 1650 H Hematology CBC w Diff Cancelled WBC Cancelled RBC Cancelled Hgb Cancelled Hct Cancelled MCV Cancelled MCH Cancelled MCHC Cancelled RDW Cancelled Plt Count Cancelled MPV Cancelled Urines Urine Color (YEL,AMB,STR) YEL Urine Clarity (CLEAR) CLEAR Urine pH (5.0 - 8.0) 6.0 Ur Specific [place] (1.001 - 1.035) 1.015 Urine Protein (NEG,<30 MG/DL) NEG Urine Ketones (NEG) NEG Urine Nitrite (NEG) NEG Urine Bilirubin (NEG) NEG Urine Urobilinogen (0.1 - 1.0 EU/dl) 0.2 Ur Leukocyte Esterase (NEG) NEG Ur Microscopic SEDIMENT EXAMINED Urine RBC (0 - 5 /HPF) 15-25 H Urine WBC (0 - 2 /HPF) RARE Ur Epithelial Cells (NONE,FEW) RARE Urine Mucus (FEW,NONE) FEW Urine Hemoglobin (NEG) MOD H Urine Glucose (N MG/DL) NEG 08/02 1405 Chemistry Sodium (137 - 145 mmol/L) 138 Potassium (3.5 - 5.1 mmol/L) 4.8 Chloride (98 - 107 mmol/L) 100 Carbon Dioxide (22 - 30 mmol/L) 27 Anion Gap (5 - 16) 11 BUN (9 - 20 mg/dL) 23 H Creatinine (0.7 - 1.2 mg/dL) 1.4 H Estimated GFR (>60 ml/min) 48 L BUN/Creatinine Ratio (7 - 25 %) 16.4 Glucose (65 - 99 mg/dL) 109 H Lactic Acid (0.7 - 2.1 mmol/L) 1.5 Calcium (8.4 - 10.2 mg/dL) 8.5 Troponin I (<0.11 ng/ml) < 0.01 Hematology CBC w Diff MAN DIFF ORDERED WBC (4.8 - 10.8 /CUMM) 17.0 H RBC (4.70 - 6.10 /CUMM) 3.56 L Hgb (14.0 - 18.0 G/DL) 8.8 L Hct (42 - 52 %) 28.4 L MCV (80.0 - 94.0 FL) 79.7 L MCH (27.0 - 31.0 PG) 24.6 L MCHC (33.0 - 37.0 G/DL) 30.9 L RDW (11.5 - 14.5 %) 17.1 H Plt Count (130 - 400 /CUMM) 520 H MPV (7.4 - 10.4 FL) 7.7 Gran % (42.2 - 75.2 %) 85.3 H Lymphocytes % (20.5 - 51.1 %) 3.8 L Monocytes % (1.7 - 9.3 %) 9.0 Eosinophils % (0 - 5 %) 1.0 Basophils % (0.0 - 2.0 %) 0.9 Absolute Granulocytes (1.4 - 6.5 /CUMM) 14.5 H Segmented Neutrophils (42.2 - 75.2 %) 85 H Band Neutrophils (0.0 - 5.0 %) 4 Absolute Lymphocytes (1.2 - 3.4 /CUMM) 0.6 L Lymphocytes (20.5 - 51.1 %) 3 L Monocytes (1.7 - 9.3 %) 7 Absolute Monocytes (0.10 - 0.60 /CUMM) 1.5 H Eosinophils (0 - 5.0 %) 1 Absolute Eosinophils (0.0 - 0.7 /CUMM) 0.2 Absolute Basophils (0.0 - 0.2 /CUMM) 0.2 Platelet Estimate (ADEQUATE) INCREASED Hypochromic-Microcytic 2+ Poikilocytosis 1+ Anisocytosis 1+ Microcytic Cells 1+ Stomatocytes 1+ Other Body Source Fld Total RBCs Counted (%) 100 Microbiology Date/Time Procedure - Status Source Growth 08/03 1730 Legionella Antigen - COMP URINE ROUT 08/03 1730 Streptococcus pneumoniae Antigen (M - COMP URINE ROUT 08/03 0735 Respiratory Culture - RES LOWER RESP 08/03 0735 Gram Stain - RES LOWER RESP 08/03 0648 Blood Culture - RECD BLOOD 08/03 0648 Blood Culture - RECD BLOOD 08/02 1730 Urine Culture - COMP URINE ROUT 08/02 1430 Influenza Virus A & B Rapid Smear - COMP NASOPHARYN Vital Signs & I&O Last 24 Hrs of Vitals and I&O: Vital Signs Date Time Temp Pulse Resp B/P B/P Pulse O2 O2 Flow FiO2 Mean Ox Delivery Rate 08/04 0839 93 Nasal 3.0L Cannula 08/04 0710 97.6 70 18 112/62 94 Nasal 3.0L Cannula 08/04 0000 Nasal 3.0L Cannula 08/03 2201 98.5 80 20 104/40 94 Nasal 3.0L Cannula 08/03 2200 80 104/40 08/03 1954 95 Nasal 3.0L Cannula 08/03 1600 Nasal 3.0L Cannula 08/03 1426 98.0 68 20 102/40 96 Nasal Cannula 08/03 1357 Nasal 3.0L Cannula 08/03 0947 72 118/70 08/03 0947 72 118/70 08/03 0947 72 118/70 08/03 0947 72 118/70 08/03 0946 72 118/ Intake & Output 08/04 1600 08/04 0800 08/04 0000 Intake Total 110 200 Output Total 450 Balance 110 -250 Intake, IV 10 Intake, Oral 100 200 Output, Urine 450 Patient 141 lb Weight Weight Bed scale Measurement Method Impression/Plan Impression/Plan Impression/Plan: General Appearance Alert, Oriented X3, Cooperative, Mild Distress, mild tachypnea on 2L NC Cardiovascular Regular Rate, Normal S1, Normal S2, No Murmurs Lungs rhonchi on right side, no significant wheezing, no crackles Abdomen Normal Bowel Sounds, Soft, No Tenderness, No Masses Extremities No Clubbing, No Cyanosis, No Edema, Normal Pulses IMPRESSION This is a gentleman with history of 40 pack smoking history, quit more than 10 years ago, ischemic heart disease, previous alcohol use, diastolic heart disease , hiatal hernia with Zenker's diverticulum, severe COPD, previous history of prostate cancer, ischemic heart disease with previous angioplasty, significant aortic aneurysm versus contained dissection managed medically, previous urinary retention with remote history of prostate ca, history of bladder ca (details not available) now comes in with * Acute severe COPD exacerbation with hypoxemia, with fever yellow sputum and elevated wbc * End-stage COPD, with pulmonary hypertension, cor pulmonale * Significant aortic aneurysm with 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 He is a poor surgical candidate. * Paroxysmal atrial fibrillation. Patient on eloquis and amiodarone * REcent rectal bleed, pt on eloquis with anemia * On moderate beta tricia for his significant aortic dilatation versus aneurysm. * Previous history of prostate cancer with BPH, with recent history of bladder ca * Hypertension. * Remote history of alcohol, but has not been drinking lately. * Sig inguinal hernia RECOMMENDATION * Prednisone 40 mg daily and slow taper * Sputum culture awaited * Cont abx and can dc azithro * nebs atc with duo neb and hold spiriva till dc, cont symbicort * Watch * DuoNeb prn * Watch for anemia and rectal bleed, check hemoglobin and hct regularly * Ask cardio if he needs both asa and eloquis
[2017-08-04 14:16] VITALS: BP 100/44
--- NOTE | 2017-08-04 14:50 | Cons- Cardiology ---
General Information and HPI Consulting Request Date of Consult: 08/04/17 Requested By: Isela Chaney MD Reason for Consult: Cardiology evaluation and med recommendations. Source of Information: patient, old records Exam Limitations: no limitations History of Present Illness: Mr. Zarina Sheikh is an 87-year-old man who has a history of myocardial infarction in 1991. He apparently had angioplasty at that time, but records were never available regarding this event. I followed him for about 10 years and then saw him again in 2011 when he had a near syncopal episode and was hospitalized at [facility]. At that time the workup was negative. He was seen in the office by me in Mar 2014 at which time he was stable, but his blood pressure was somewhat elevated. At his previous visit I had increased his amlodipine to 5 mg daily from 2.5. Zarina had a complicated hospitalization from 02/25/2016 to 03/04/2016. He came in basically with exacerbation of COPD and bronchitis. He developed chest pain in the hospital but had negative troponins. 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 Dr. Interiano saw him for this and recommended further evaluation, but Mr. Sheikh declined at the time. He has continued to decline evaluation or treatment of this entity. The patient also developed intermittent periods of atrial fibrillation while in the hospital and was started on anticoagulation and amiodarone. He was discharged on. In addition, he developed urinary retention and failed removal of the Muro catheter and went home with a Muro. He apparently now has a bladder tumor and also probably prostate cancer. Subsequently Dusty ended up in the hospital again from 06/03/2016 through 2016 with exacerbation of COPD, and also some lower extremity edema. He was also hyponatremic to 124. His diuretic was held on discharge, but apparently has been restarted. Subsequently he developed urinary retention around 07/17 and had a Muro catheter put in in the Emergency Department. Dusty was hospitalized again very briefly on 09/17/2016 for chest pain, which was somewhat atypical. He was seen by Dr. Crawford, who was covering me for the weekend, and the workup was negative and he was discharged quickly. Subsequently Dusty has been doing pretty well. At his last office visit, he described some probable angina, but otherwise had no major complaints. Since then he continues to have occasional chest pain relieved by nitroglycerin. He has dyspnea on more than usual exertion mostly due to underlying COPD. He has no palpitations, dizziness, etc. He remains on amlodipine 5 mg daily, amiodarone 200 mg daily, Eliquis 5 mg twice a day, Lopressor 25 mg twice a day, Lasix 20 mg BID, and losartan 25 mg daily. He is also taking aspirin and vitamins. Dusty was admitted this time for increasing shortness of breath and exacerbation of COPD. He does not appear to have any congestive heart failure. He states he has had some chest pain recently relieved by nitroglycerin. He has not had any clinical atrial fibrillation for a couple of years. He also states that he had some what he considers bleeding hemorrhoids over the past couple of days prior to his admission. He is running very low H&H at this time. He remains on aspirin and Eliquis. Allergies/Medications Allergies: Coded Allergies: NO KNOWN ALLERGIES (UNKNOWN 09/17/16) Home Med List: Albuterol Sulfate (Proair Hfa) 90 MCG HFA.AER.AD 2 PUF INH Q4-6 PRN PRN COPD Amiodarone (Cordarone) 200 MG TABLET 200 MG PO DAILY HEART Amlodipine Besylate 5 MG TABLET 5 MG PO DAILY HEART HEALTH (Reported) Anusol Hc (Anusol-Hc) 25 MG SUPP.RECT 1 SUP RC BID PRN HEMORRHOIDS Apixaban (Eliquis) 5 MG TABLET 5 MG PO BID BLOOD THINNER Aspirin (Ecotrin*) 81 MG TABLET.DR 81 MG PO DAILY HEART HEALTH (Reported) Budesonide/Formoterol Fumarate (Symbicort 160-4.5 Mcg Inhaler) 160 MCG-4.5 MCG/ ACTUATION HFA.AER.AD 2 PUF INH BID COPD Finasteride 5 MG TABLET 1 TAB PO DAILY BPH (Reported) Furosemide (Lasix) 20 MG TABLET 1 TAB PO BID CHF (Reported) Losartan Potassium (Cozaar) 25 MG TABLET 1 TAB PO DAILY blood pressure ( Reported) Metoprolol Tartrate (Lopressor) 50 MG TABLET 25 MG PO BID HIGH BLOOD PRESSURE (Reported) Omeprazole 20 MG TABLET.DR 20 MG PO DAILY ACID REFLUX Tamsulosin HCl (Flomax) 0.4 MG CAP.ER.24H 0.4 MG PO DAILY urinary retention Tiotropium Roann (Spiriva) 18 MCG CAP.W.DEV 1 CAP INH DAILY COPD Vit B12/FA/Pyridoxine HCl/Aa15 (Glycotrol Capsule) 500 MCG-400 MCG-10 MG-400 MG CAPSULE 100 MCG PO DAILY ANEMIA (Reported) Vit C/Hesperidin/Bioflavonoids (Grande-C 500 Tablet) 500 MG-100 MG-100 MG TABLET 500 MG PO DAILY IMMUNE SUPPORT (Reported) Vit D3 & K/Berberine HCl/Hops (Ostera Tablet) 500 UNIT-500 MCG-90 MG-370 MG TABLET 1,000 UNITS PO DAILY HEART HEALTH (Reported) Current Medications: Current Medications Sig/Jimbo Start time Last Medication Dose Route Stop Time Status Admin Albuterol Sulfate 3 ML TID 08/03 1600 AC 08/05 INH 0852 Albuterol Sulfate 2 PUF Q4-6 PRN PRN 08/03 0230 AC INH Amiodarone HCl 100 MG DAILY 08/05 1000 AC 08/05 PO 0819 Amiodarone HCl 200 MG DAILY 08/03 1000 DC 08/04 PO 1130 Amlodipine Besylate 2.5 MG DAILY 08/04 1000 DC 08/04 PO 1039 Apixaban 5 MG BID 08/03 1000 DC 08/04 PO 1036 Aspirin Buffered 81 MG DAILY 08/03 1000 DC 08/04 PO 1129 Azithromycin 500 MG DAILY 08/03 1000 DC 08/03 Dextrose/Water 250 ML IV 0948 Budesonide/ 2 PUF BID 08/03 1000 AC 08/05 Formoterol Fumarate INH 0819 Ceftriaxone Sodium 1,000 MG DAILY 08/03 1200 AC 08/05 IV 0817 Ferrous Sulfate 325 MG DAILY 08/03 1500 AC 08/05 PO 0819 Finasteride 5 MG DAILY 08/04 1000 AC 08/05 PO 0818 Furosemide 20 MG DAILY 08/04 1000 AC 08/05 PO 0818 Guaifenesin/Codeine 10 ML Q4P PRN 08/04 0530 AC 08/04 Phosphate PO 1131 Ipratropium Roann 2.5 ML TID 08/03 1600 AC 08/05 INH 0852 Losartan Potassium 25 MG DAILY 08/04 1000 AC 08/05 PO 0819 Metoprolol Tartrate 25 MG BID 08/03 1000 AC 08/05 PO 0818 Nitroglycerin 0.4 MG ONCE ONE 08/05 0245 DC 08/05 SL 08/05 0246 0304 Omeprazole 40 MG DAILY AC 08/03 0700 AC 08/05 PO 0618 Patient Medication 1 ED ONE ONE 08/04 1045 IL Teaching ED 08/04 1046 Polyethylene Glycol 17 GM DAILY 08/04 1034 AC 08/05 PO 0817 Prednisone 10 MG DAILY 08/16 1000 CAN PO 08/19 0959 Prednisone 5 MG DAILY 08/16 1000 AC PO 08/19 0959 Prednisone 20 MG DAILY 08/13 1000 CAN PO 08/16 0959 Prednisone 10 MG DAILY 08/13 1000 AC PO 08/16 0959 Prednisone 30 MG DAILY 08/10 1000 CAN PO 08/13 0959 Prednisone 20 MG DAILY 08/10 1000 AC PO 08/13 0959 Prednisone 40 MG DAILY 08/07 1000 CAN PO 08/10 0959 Prednisone 30 MG DAILY 08/07 1000 AC PO 08/10 0959 Prednisone 50 MG DAILY 08/04 1000 CAN PO 08/07 0959 Prednisone 40 MG DAILY 08/04 1000 CAN PO 08/19 0959 Prednisone 40 MG DAILY 08/04 1000 AC 08/05 PO 08/07 0959 0818 Senna/Docusate Sodium 2 TAB DAILY 08/04 2100 AC 08/05 PO 0817 Tamsulosin HCl 0.4 MG DAILY 08/03 1000 AC 08/05 PO 0818 Review of Systems Review of Systems: Increasing shortness of breath and cough. Also some probable hemorrhoidal bleeding. Past History Travel History Traveled to [place] past 21 day No Medical History Blood Transfusion Hx: No Neurological: NONE EENT: NONE Cardiovascular: CAD, hypertension, hyperlipidemia, paroxysmal atrial fibrillation. Saccular aneurysms of thoracic aortic arch, patient has refused any intervention. Respiratory: bronchitis, COPD, HOME O2 Gastrointestinal: NONE Hepatic: NONE Renal: per the patient he also has bladder cancer, follows up with Dr. Sigala, she suggested surgical treatment but patient has refused. Musculoskeletal: NONE Psychiatric: NONE Endocrine: NONE Blood Disorders: NONE Cancer(s): basal cell carcinoma (of the nose), PROSTATE CA BLADDER CA PLC ENGINEER/Reproductive: NONE Surgical History Surgical History: ANGIOPLASTY IN GALLBLADDER REMOVAL Family History Relations & Conditions If Any: Relation not specified for: *No pertinent family history Psychosocial History Where Do You Live? Home Services at Home: None Smoking Status: Former Smoker ETOH Use: occasional use Functional Ability ADLs Independent: dressing, eating, toileting, bathing. Ambulation: cane Exam & Diagnostic Data Vital Signs and I&O Vital Signs Date Time Temp Pulse Resp B/P B/P Pulse O2 O2 Flow FiO2 Mean Ox Delivery Rate 08/04 1416 98.0 68 16 100/44 96 Nasal 3.0L Cannula 08/04 1130 82 100/60 08/04 1130 82 100/60 08/04 1040 90 16 100/60 08/04 1039 90 16 100/40 08/04 1038 90 16 100/40 08/04 0839 93 Nasal 3.0L Cannula 08/04 0800 97 Nasal 3.0L Cannula 08/04 0710 97.6 70 18 112/62 94 Nasal 3.0L Cannula 08/04 0000 Nasal 3.0L Cannula 08/03 2201 98.5 80 20 104/40 94 Nasal 3.0L Cannula 08/03 2200 80 104/40 08/03 1954 95 Nasal 3.0L Cannula 08/03 1600 Nasal 3.0L Cannula Intake & Output 08/04 0808/04 0000 08/03 1600 08/03 0800 08/03 0000 Intake Total 110 200 780 110 240 Output Total 450 300 800 Balance 110 -250 480 110 -560 Intake, IV 10 280 10 Intake, Oral 100 200 500 100 240 Number 0 Bowel Movements Output, Urine 450 300 800 Patient 141 lb 140 lb Weight Weight Bed scale Reported by Patient Measurement Method Physical Exam: Elderly man in no acute distress just mildly tachypneic HEENT exam normal Neck veins not distended Carotids normal Chest mildly decreased breath sounds, few rhonchi Heart regular rhythm, soft heart sounds, no murmur Abdomen benign Extremities no edema Labs/Kushal Results: Laboratory Tests 08/04 08/03 0612 0650 Chemistry Sodium (137 - 145 mmol/L) 134 L 136 L Potassium (3.5 - 5.1 mmol/L) 4.9 4.6 Chloride (98 - 107 mmol/L) 100 101 Carbon Dioxide (22 - 30 mmol/L) 23 26 Anion Gap (5 - 16) 11 9 BUN (9 - 20 mg/dL) 39 H 28 H Creatinine (0.7 - 1.2 mg/dL) 1.7 H 1.4 H Estimated GFR (>60 ml/min) 38 L 48 L BUN/Creatinine Ratio (7 - 25 %) 22.9 20.0 Hemoglobin A1c (4.2 - 5.8 %) 5.7 Iron (49 - 181 ug/dL) 13 L TIBC (261 - 462 ug/dL) 440 Ferritin (17.9 - 464 ng/mL) 18.6 Total Bilirubin (0.2 - 1.3 mg/dL) 0.4 Direct Bilirubin (< 0.4 mg/dL) 0.4 AST (17 - 59 U/L) 22 ALT (21 - 72 U/L) 26 Alkaline Phosphatase (< 127 U/L) 102 Troponin I (<0.11 ng/ml) < 0.01 Total Protein (6.3 - 8.2 g/dL) 5.4 L Albumin (3.5 - 5.0 g/dL) 2.8 L Vitamin B12 (239 - 931 pg/mL) 843 Folate (2.76 - 20.0 ng/mL) 7.8 Hematology CBC w Diff MAN DIFF ORDERED MAN DIFF ORDERED WBC (4.8 - 10.8 /CUMM) 14.1 H 15.8 H RBC (4.70 - 6.10 /CUMM) 2.86 L 3.11 L Hgb (14.0 - 18.0 G/DL) 7.1 *L 7.8 L Hct (42 - 52 %) 22.8 L 24.6 L MCV (80.0 - 94.0 FL) 79.8 L 79.2 L MCH (27.0 - 31.0 PG) 25.0 L 25.1 L MCHC (33.0 - 37.0 G/DL) 31.3 L 31.8 L RDW (11.5 - 14.5 %) 17.4 H 17.5 H Plt Count (130 - 400 /CUMM) 408 H 445 H MPV (7.4 - 10.4 FL) 8.4 8.3 Gran % (42.2 - 75.2 %) 91.8 H 92.9 H Lymphocytes % (20.5 - 51.1 %) 3.9 L 3.3 L Monocytes % (1.7 - 9.3 %) 4.3 3.8 Eosinophils % (0 - 5 %) 0 0 Basophils % (0.0 - 2.0 %) 0 0 Absolute Granulocytes (1.4 - 6.5 /CUMM) 13.0 H 14.6 H Segmented Neutrophils (42.2 - 75.2 %) 89 H 76 H Band Neutrophils (0.0 - 5.0 %) 6 H 15 H Absolute Lymphocytes (1.2 - 3.4 /CUMM) 0.5 L 0.5 L Lymphocytes (20.5 - 51.1 %) 3 L 4 L Monocytes (1.7 - 9.3 %) 2 5 Absolute Monocytes (0.10 - 0.60 /CUMM) 0.6 0.6 Absolute Eosinophils (0.0 - 0.7 /CUMM) 0 0 Absolute Basophils (0.0 - 0.2 /CUMM) 0 0 Platelet Estimate (ADEQUATE) ADEQUATE VERIFIED BY SMEAR Polychromasia 1+ Hypochromic-Microcytic 2+ 2+ Poikilocytosis 1+ Anisocytosis 1+ 1+ Microcytic Cells 1+ Ovalocytes 08/03 08/03 08/02 0500 0112 1730 Chemistry Sodium Cancelled Potassium Cancelled Chloride Cancelled Carbon Dioxide Cancelled Anion Gap Cancelled BUN Cancelled Creatinine Cancelled BUN/Creatinine Ratio Cancelled Troponin I (<0.11 ng/ml) < 0.01 Uuu-A-Esgrghreryd Pept (<125 pg/mL) 1650 H Hematology CBC w Diff Cancelled WBC Cancelled RBC Cancelled Hgb Cancelled Hct Cancelled MCV Cancelled MCH Cancelled MCHC Cancelled RDW Cancelled Plt Count Cancelled MPV Cancelled Urines Urine Color (YEL,AMB,STR) YEL Urine Clarity (CLEAR) CLEAR Urine pH (5.0 - 8.0) 6.0 Ur Specific [place] (1.001 - 1.035) 1.015 Urine Protein (NEG,<30 MG/DL) NEG Urine Ketones (NEG) NEG Urine Nitrite (NEG) NEG Urine Bilirubin (NEG) NEG Urine Urobilinogen (0.1 - 1.0 EU/dl) 0.2 Ur Leukocyte Esterase (NEG) NEG Ur Microscopic SEDIMENT EXAMINED Urine RBC (0 - 5 /HPF) 15-25 H Urine WBC (0 - 2 /HPF) RARE Ur Epithelial Cells (NONE,FEW) RARE Urine Mucus (FEW,NONE) FEW Urine Hemoglobin (NEG) MOD H Urine Glucose (N MG/DL) NEG Diagnostic Data EKG Results EKG on admission shows sinus rhythm rate of 71, very minor ST depression and borderline prolonged QT interval. CXR Results PATIENT: ZARINA SHEIKH PRESENT AGE: 87 PATIENT ACCOUNT NO: [id number] : 30 LOCATION: [facility] ORDERING PHYSICIAN: Aneudy Ranodlph MD SERVICE DATE: 08/02/176097 EXAM TYPE: RAD - XRY-PORTABLE CHEST XRAY EXAMINATION: XR PORTABLE CHEST CLINICAL INFORMATION: Dyspnea and rhonchi. History of chronic obstructive pulmonary disease. COMPARISON: Prior chest radiograph, including 09/16/2016. Chest CT from 02/27/2016. TECHNIQUE: Portable frontal view of the chest was obtained. FINDINGS: Lungs are well expanded and hyperlucent from chronic emphysematous disease. The peribronchial interstitium appears chronically thickened. Unable to exclude acute bronchitis superimposed on the chronic airway inflammation. No focal consolidation or pleural effusion. Cardiac silhouette remains normal in size. 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 The aneurysm is difficult to precisely measure. It has an estimated transverse dimension of 3.8 cm, compared to 3.4 cm on 09/16/2016 Bones appear diffusely osteopenic. IMPRESSION: 1. Chronic obstructive pulmonary disease. 2. 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 DICTATED BY: Kristofer Hoyos MD DATE/TIME DICTATED:08/02/171441 BUSINESS ACCOUNT MANAGER:ISABELLE DATE/TIME TRANSCRIBED:08/02/171441 CONFIDENTIAL, DO NOT COPY WITHOUT APPROPRIATE AUTHORIZATION. <Electronically signed in Other Vendor System> SIGNED BY: Kristofer Hoyos MD 08/02/17 3817 Assessment/Plan Assessment/Plan Mr. Sheikh has multiple underlying problems. These include previous atrial fibrillation, and coronary artery disease, aortic aneurysm, which appears to be larger on chest x-ray, COPD. At the current time from a cardiac standpoint he has mild angina relieved by nitroglycerin. He is not a good candidate for cardiac catheterization at this time and has not been unstable. With regards to his atrial fibrillation, the only time he had it was when he was in the hospital a couple of years ago with acute illness. He has been maintained on Eliquis and amiodarone with no problems until now, but now he has some GI bleeding, possibly hemorrhoidal, and is severely anemic. He is also on aspirin for his coronary artery disease. His current problem is exacerbation of COPD from which he appears improved. I recommend discontinuing Eliquis for now. I would transfuse him to a hemoglobin of greater than 8. As noted he has not had a clinical episode of atrial fibrillation for about 2 years, so we can keep him off Eliquis until or unless he develops recurrent atrial fibrillation. With regards to his aspirin I think this can be safely held until his anemia has resolved and there is no further bleeding. A GI evaluation for his reported bleeding is in order. I would also decrease his amiodarone to 100 mg daily considering his age and underlying lung disease. Consult Acknowledgment - Thank you for your consult request.
[2017-08-04 18:56] LABS: ABSOLUTE BASOPHIL COUNT 0 /CUMM (0.0-0.2); ABSOLUTE EOSINOPHIL COUNT 0 /CUMM (0.0-0.7); ABSOLUTE GRANULOCYTE CT 14.1 /CUMM (1.4-6.5); ABSOLUTE LYMPH COUNT 0.7 /CUMM (1.2-3.4); ABSOLUTE MONOCYTE COUNT 0.7 /CUMM (0.10-0.60); BASOPHIL % 0 % (0.0-2.0); EOSINOPHIL % 0 % (0-5); GRANULOCYTE % 90.8 % (42.2-75.2); HEMATOCRIT 24.5 % (42-52); MEAN CORPUSCULAR HGB 24.9 PG (27.0-31.0); MEAN CORPUSCULAR HGB CONC 31.4 G/DL (33.0-37.0); MEAN CORPUSCULAR VOLUME 79.4 FL (80.0-94.0); MEAN PLATELET VOLUME 9.2 FL (7.4-10.4); PLATELET COUNT 472 /CUMM (130-400); RBC DISTRIBUTION WIDTH 17.4 % (11.5-14.5); RED BLOOD CELL CT 3.09 /CUMM (4.70-6.10); WHITE BLOOD CELL COUNT 15.5 /CUMM (4.8-10.8)
[2017-08-04 22:37] VITALS: BP 114/48
--- NOTE | 2017-08-05 02:50 | Event Note ---
Event Note Event Note: The patient developed sudden onset substernal chest pain radiating to the right chest wall aggravated by cough and pleuritic in nature, nonreproducible without new murmur on physical exam. Vitals 98.4 84 118/72 19 95% on 3L NC. His chest pain had resolved by the time of evaluation less than five minutes. A STAT EKG was performed and negative for any acute ST segments changes suggestive of active ischemia. The patient was offered sublingual nitroglycerin for angina and denied it because his pain was completely resolved.
[2017-08-05 06:31] VITALS: BP 112/50
--- NOTE | 2017-08-05 07:53 | PN- Housestaff ---
Tommie NEWSOME,[facility] 08/05/17 0753: Subjective Follow-up For: Fall/near syncope Sympatomatic iron defiency anemia COPD Bacterial bronchitis Tele-Events Since Last Visit: Sinus rhythm/1st degree HB HR 6274 NV .24 Subjective: Patient had 2 episodes of chest pain last night. First episode resolved spontaneously and the second episode resolved with sublingual nitroglycerin. Patient states that he has intermittent chest pain at home which is relieved by the nitroglycerin. Patient responded yesterday. Review of Systems Constitutional: Reports: see HPI. Objective Last 24 Hrs of Vital Signs/I&O Vital Signs Date Time Temp Pulse Resp B/P B/P Pulse O2 O2 Flow FiO2 Mean Ox Delivery Rate 08/05 0856 94 Nasal 3.0L Cannula 08/05 0819 66 116/56 08/05 0819 66 116/56 08/05 0818 66 116/56 08/05 0818 66 116/56 08/05 0800 97 Nasal 2.0L Cannula 08/05 0631 97.7 66 20 112/50 94 08/05 0000 Nasal 3.0L Cannula 08/04 2237 98.4 83 18 114/48 94 Nasal Cannula 08/04 2136 77 114/54 08/04 2115 96 Nasal 3.0L Cannula Intake & Output 08/05 1600 06 0800 08/05 0000 Intake Total 460 100 200 Output Total 500 550 Balance -40 -450 200 Intake, IV 10 Intake, Oral 450 100 200 Number 1 Bowel Movements Output, Urine 500 550 Patient 146 lb Weight Weight Bed scale Measurement Method Physical Exam General Appearance: Alert, Oriented X3, Cooperative, No Acute Distress Cardiovascular: Regular Rate, Normal S1, Normal S2 Lungs: Clear to Auscultation, mild bilateral lower basal rhonchi Abdomen: Normal Bowel Sounds, Soft, No Tenderness Vascular: 2+ radial pulses Current Medications: Current Medications Sig/Jimbo Start time Last Medication Dose Route Stop Time Status Admin Albuterol Sulfate 3 ML TID 08/03 1600 DCD 08/05 INH 1302 Albuterol Sulfate 2 PUF Q4-6 PRN PRN 08/03 0230 DCD INH Amiodarone HCl 100 MG DAILY 08/05 1000 DCD 08/05 PO 0819 Budesonide/ 2 PUF BID 08/03 1000 DCD 08/05 Formoterol Fumarate INH 0819 Ceftriaxone Sodium 1,000 MG DAILY 08/03 1200 DCD 08/05 IV 0817 Ferrous Sulfate 325 MG DAILY 08/03 1500 DCD 08/05 PO 0819 Finasteride 5 MG DAILY 08/04 1000 DCD 08/05 PO 0818 Furosemide 20 MG DAILY 08/04 1000 DCD 08/05 PO 0818 Guaifenesin/Codeine 10 ML Q4P PRN 08/04 0530 DCD 08/05 Phosphate PO 1238 Ipratropium [place] 2.5 ML TID 08/03 1600 DCD 08/05 INH 1302 Losartan Potassium 25 MG DAILY 08/04 1000 DCD 08/05 PO 0819 Metoprolol Tartrate 25 MG BID 08/03 1000 DCD 08/05 PO 0818 Nitroglycerin 0.4 MG ONCE ONE 08/05 0245 DC 08/05 SL 08/05 0246 0304 Omeprazole 40 MG DAILY AC 08/03 0700 DCD 08/05 PO 0618 Patient Medication 1 ED ONE ONE 08/05 1515 DCD Teaching ED 08/05 1516 Polyethylene Glycol 17 GM DAILY 08/04 1034 DCD 08/05 PO 0817 Prednisone 5 MG DAILY 08/16 1000 DCD PO 08/19 0959 Prednisone 10 MG DAILY 08/13 1000 DCD PO 08/16 0959 Prednisone 20 MG DAILY 08/10 1000 DCD PO 08/13 0959 Prednisone 30 MG DAILY 08/07 1000 DCD PO 08/10 0959 Prednisone 40 MG DAILY 08/04 1000 DCD / PO 08/07 0959 0818 Senna/Docusate Sodium 2 TAB DAILY 08/04 2100 DCD 08/05 PO 0817 Tamsulosin HCl 0.4 MG DAILY 08/03 1000 DCD 08/05 PO 0818 Last 24 Hrs of Lab/Kushal Results Last 24 Hrs of Labs/Mics: Laboratory Tests 08/05/17 0607: Anion Gap 12, Estimated GFR 41 L, BUN/Creatinine Ratio 27.5 H, Lactate Dehydrogenase 452, CBC w Diff MAN DIFF ORDERED, RBC 3.00 L, MCV 79.6 L, MCH 25.2 L, MCHC 31.6 L, RDW 17.5 H, MPV 8.4, Segmented Neutrophils 81 H, Band Neutrophils 4, Lymphocytes 6 L, Monocytes 9, Nucleated RBCs 2 H, Platelet Estimate VERIFIED BY SMEAR, Polychromasia 1+, Poikilocytosis FEW, Anisocytosis 1 +, Ovalocytes FEW, Retic Count 2.07 H Assessment/Plan Assessment: A: 86 year old male with past medical history significant for HTN, HFpEF, CAD, NC 1991 s/p angioplasty, saccular aortic aneurysm, paroxysmal atrial fibrillation on eliquis and amiodarone, COPD on 2 L home O2 ([place]), former smoker, and prostate cancer presents with worsening shortness of breath with exertion. P: #Fall/near syncopal event: [place] <.01x3 -PT evaluation: home PT #Symptomatic iron deficiency anemia h/h 7.8/24.6 -> 7.1/22.8 Iron studies: iron 13, TIBC 440, tracy 186 B12, folate normal Guaiac negative -Patient refused blood yesterday -f/u peripheral smear results -Holding Eliquis per cardiology -Follow-up pcp for GI outpatient referral -cont to monitor -pt unsure who he got colonoscopy from in the last 10 years -hgb goal >8 #Exertional dyspnea 2/2 to COPD and Klebsiella bronchitis Probnp 1650 CXR: copd and increasing aneusym of aortic arch WBC remains elevated Urinary antigens, flu negative LRC growing klebsiella -cont trc nebs -Discharge with by mouth steroid taper -Completed 3 days of ceftriaxone. We'll discharge for 4 days of ceftin to complete 1 abx. -restart spiriva, cont symbicort #elevated blood surgar Elevated blood sugars most likely due to steroids Normal hgbA1c -cont to monitor -low dose novolog #CKD Cr 1.6 - baseline -cont to monitor #CAD/HFpEF/HTN/BPH: -Continue lasix, ARB, beta tricia, aspirin, finasteride, losartan, amlodipine #Atrial fibrillation: -Continue amiodarone but decreased to 100mg daily, metoprolol, -holding eliquis for possible GI bleed #DVT ppx - ALPS due to anemia and + stool guaic #DNR/DNI Problem List: 1. Fall 2. Anemia 3. COPD (chronic obstructive pulmonary disease) 4. Acute bacterial bronchitis Pain Ratin Pain Location: none Pain Goal: Pain 4 or less Pain Plan: pain pathway Tomorrow's Labs & Rationales: none Isela Chaney MD 08/05/17 1027: Attending MD Review Statement Attending Statement Attending MD Statement: examined this patient, discuss w/resident/PA/PROPERTY LOSS INSURANCE CLAIM ADJUSTER, agreed w/resident/PA/PROPERTY LOSS INSURANCE CLAIM ADJUSTER, reviewed EMR data (avail) Attending Assessment/Plan: 87M PMH HTN, HFpEF, CAD S/P stent, prostate cancer, COPD on 2 L NC, paroxysmal atrial fibrillation on Eliquis and Amiodarone, aortic aneurysm and distal thoracic aneurysm admitted with several days of worsening productive cough and dyspnea with dizziness and near fall on day of admission in the setting of COPD exacerbation secondary to acute bronchitis, with course complicated by symptomatic anemia that appears to be chronically worsening with no obvious etiology. Much improved, feels back to baseline. Hgb stable. 1. COPD Exacerbation 2. Acute bronchitis 3. Near syncope 4. Symptomatic iron deficiency anemia 5. Acute on chronic hypoxemic respiratory failure Plan - Pending sputum culture and PT evaluation, can be discharged home - Per cardiology will discontinue ASA and Eliquis on discharge - Continue iron supplement - Continue Prednisone taper - Discharge antibiotics based on sputum culture results - Continue home medications
[2017-08-05 07:58] LABS: HEMATOCRIT 23.9 % (42-52); MEAN CORPUSCULAR HGB 25.2 PG (27.0-31.0); MEAN CORPUSCULAR HGB CONC 31.6 G/DL (33.0-37.0); MEAN CORPUSCULAR VOLUME 79.6 FL (80.0-94.0); MEAN PLATELET VOLUME 8.4 FL (7.4-10.4); PLATELET COUNT 441 /CUMM (130-400); RBC DISTRIBUTION WIDTH 17.5 % (11.5-14.5)
[2017-08-05 08:19] VITALS: BP 116/56
[2017-08-05] MEDS ORDERED: COZAAR25 M1 PO (09:17)
[2017-08-05] MEDS ORDERED: FERROUS SULFAT325 M2 PO ×2 (09:30→13:17)
--- NOTE | 2017-08-05 09:30 | Patient Discharge Instructions ---
Discharge Instructions General Discharge Information Special Instructions: Please follow up with your pcp in 1-2 weeks. Please also discuss with your pcp about further anemia testing and referral to GI for possible colonoscopy. Please follow up with your assisted living administrator in 1-2 weeks. Please follow up with your new pulmnologist Dr. Bonner in 1-2 weeks. Please continue your medications as perscribed. Acute Coronary Syndrome Inclusion Criteria At DC or during hospital stay patient has or had the following: ACS DIAGNOSIS No Discharge Core Measures Meds if any: Prescribed or Continued at Discharge Meds if any: NOT Prescribed or Continued at Discharge Congestive Heart Failure Inclusion Criteria At DC or during hospital stay patient has or had the following: CHF DIAGNOSIS No Discharge Core Measures Meds if any: Prescribed or Continued at Discharge Meds if any: NOT Prescribed or Continued at Discharge Cerebrovascular accident Inclusion Criteria At DC or during hospital stay patient has or had the following: CVA/TIA Diagnosis No Discharge Core Measures Meds if any: Prescribed or Continued at Discharge Meds if any: NOT Prescribed or Continued at Discharge Venous thromboembolism Inclusion Criteria VTE Diagnosis No VTE Type NONE VTE Confirmed by (Test) NONE Discharge Core Measures - Per Current guidelines, there needs to be overlap - treatment for the first 5 days of Warfarin therapy. - If discharged on Warfarin prior to 5 days of - overlap therapy, the patient will need to be - assessed for post discharge needs including - *Post discharge parental anticoagulation - *Warfarin and/or parental anticoagulation education - *Follow up date to check INR post discharge At least 5 days overlap therapy as Inpatient No Meds if any: Prescribed or Continued at Discharge Note: Overlap Therapy is Warfarin and Anticoagulant Meds if any: NOT Prescribed or Continued at Discharge
[2017-08-05] MEDS ORDERED: PREDNISONE10 M2 PO ×3 (11:20→14:09)
--- NOTE | 2017-08-05 11:44 | PN- Pulmonary ---
Subjective HPI/Critical Care Issues: Doing ok stable no sig sputum Objective Current Medications: Current Medications Sig/Jimbo Start time Last Medication Dose Route Stop Time Status Admin Albuterol Sulfate 3 ML TID 08/03 1600 AC 08/05 INH 0852 Albuterol Sulfate 2 PUF Q4-6 PRN PRN 08/03 0230 AC INH Amiodarone HCl 100 MG DAILY 08/05 1000 AC 08/05 PO 0819 Amiodarone HCl 200 MG DAILY 08/03 1000 DC 08/04 PO 1130 Amlodipine Besylate 2.5 MG DAILY 08/04 1000 DC 08/04 PO 1039 Apixaban 5 MG BID 08/03 1000 DC 08/04 PO 1036 Aspirin Buffered 81 MG DAILY 08/03 1000 DC 08/04 PO 1129 Budesonide/ 2 PUF BID 08/03 1000 AC 08/05 Formoterol Fumarate INH 0819 Ceftriaxone Sodium 1,000 MG DAILY 08/03 1200 AC 08/05 IV 0817 Ferrous Sulfate 325 MG DAILY 08/03 1500 AC 08/05 PO 0819 Finasteride 5 MG DAILY 08/04 1000 AC 08/05 PO 0818 Furosemide 20 MG DAILY 08/04 1000 AC 08/05 PO 0818 Guaifenesin/Codeine 10 ML Q4P PRN 08/04 0530 AC 08/04 Phosphate PO 1131 Ipratropium [place] 2.5 ML TID 08/03 1600 AC 08/05 INH 0852 Losartan Potassium 25 MG DAILY 08/04 1000 AC 08/05 PO 0819 Metoprolol Tartrate 25 MG BID 08/03 1000 AC 08/05 PO 0818 Nitroglycerin 0.4 MG ONCE ONE 08/05 0245 DC 08/05 SL 08/05 0246 0304 Omeprazole 40 MG DAILY AC 08/03 0700 AC 08/05 PO 0618 Polyethylene Glycol 17 GM DAILY 08/04 1034 AC 08/05 PO 0817 Prednisone 5 MG DAILY 08/16 1000 AC PO 08/19 0959 Prednisone 10 MG DAILY 08/13 1000 AC PO 08/16 0959 Prednisone 20 MG DAILY 08/10 1000 AC PO 08/13 0959 Prednisone 30 MG DAILY 08/07 1000 AC PO 08/10 0959 Prednisone 40 MG DAILY 08/04 1000 AC 08/05 PO 08/07 0959 0818 Senna/Docusate Sodium 2 TAB DAILY 08/04 2100 AC 08/05 PO 0817 Tamsulosin HCl 0.4 MG DAILY 08/03 1000 AC 08/05 PO 0818 Vital Signs & I&O Last 24 Hrs of Vitals and I&O: Vital Signs Date Time Temp Pulse Resp B/P B/P Pulse O2 O2 Flow FiO2 Mean Ox Delivery Rate 08/05 0856 94 Nasal 3.0L Cannula 08/05 818 66 116/56 08/05 0819 66 116/56 08/05 0818 66 116/56 08/05 0818 66 116/56 08/05 0800 97 Nasal 2.0L Cannula 08/05 0631 97.7 66 20 112/50 94 08/05 0000 Nasal 3.0L Cannula 08/04 2237 98.4 83 18 114/48 94 Nasal Cannula 08/04 2136 77 114/54 08/04 2115 96 Nasal 3.0L Cannula 08/04 1416 98.0 68 16 100/44 96 Nasal 3.0L Cannula Intake & Output 08/05 1600 08/05 0800 08/05 0000 Intake Total 100 200 Output Total 550 Balance -450 200 Intake, Oral 100 200 Number 1 Bowel Movements Output, Urine 550 Patient 146 lb Weight Weight Bed scale Measurement Method Laboratory Tests 08/05 08/04 0607 1740 Chemistry Sodium (137 - 145 mmol/L) 134 L Potassium (3.5 - 5.1 mmol/L) 4.5 Chloride (98 - 107 mmol/L) 99 Carbon Dioxide (22 - 30 mmol/L) 24 Anion Gap (5 - 16) 12 BUN (9 - 20 mg/dL) 44 H Creatinine (0.7 - 1.2 mg/dL) 1.6 H Estimated GFR (>60 ml/min) 41 L BUN/Creatinine Ratio (7 - 25 %) 27.5 H Lactate Dehydrogenase (313 - 618 U/L) 452 Hematology CBC w Diff MAN DIFF ORDERED NO MAN DIFF REQ WBC (4.8 - 10.8 /CUMM) 17.0 H 15.5 H RBC (4.70 - 6.10 /CUMM) 3.00 L 3.09 L Hgb (14.0 - 18.0 G/DL) 7.6 L 7.7 L Hct (42 - 52 %) 23.9 L 24.5 L MCV (80.0 - 94.0 FL) 79.6 L 79.4 L MCH (27.0 - 31.0 PG) 25.2 L 24.9 L MCHC (33.0 - 37.0 G/DL) 31.6 L 31.4 L RDW (11.5 - 14.5 %) 17.5 H 17.4 H Plt Count (130 - 400 /CUMM) 441 H 472 H MPV (7.4 - 10.4 FL) 8.4 9.2 Gran % (42.2 - 75.2 %) 90.8 H Lymphocytes % (20.5 - 51.1 %) 4.5 L Monocytes % (1.7 - 9.3 %) 4.7 Eosinophils % (0 - 5 %) 0 Basophils % (0.0 - 2.0 %) 0 Absolute Granulocytes (1.4 - 6.5 /CUMM) 14.1 H Segmented Neutrophils (42.2 - 75.2 %) 81 H Band Neutrophils (0.0 - 5.0 %) 4 Absolute Lymphocytes (1.2 - 3.4 /CUMM) 0.7 L Lymphocytes (20.5 - 51.1 %) 6 L Monocytes (1.7 - 9.3 %) 9 Absolute Monocytes (0.10 - 0.60 /CUMM) 0.7 H Absolute Eosinophils (0.0 - 0.7 /CUMM) 0 Absolute Basophils (0.0 - 0.2 /CUMM) 0 Nucleated RBCs (0.0 - 0.0 /100WBC) 2 H Platelet Estimate (ADEQUATE) VERIFIED BY SMEAR Polychromasia 1+ Poikilocytosis FEW Anisocytosis 1+ Ovalocytes FEW Retic Count (0.5 - 2.0 %) 2.07 H 04/05 0612 Chemistry Sodium (137 - 145 mmol/L) 134 L Potassium (3.5 - 5.1 mmol/L) 4.9 Chloride (98 - 107 mmol/L) 100 Carbon Dioxide (22 - 30 mmol/L) 23 Anion Gap (5 - 16) 11 BUN (9 - 20 mg/dL) 39 H Creatinine (0.7 - 1.2 mg/dL) 1.7 H Estimated GFR (>60 ml/min) 38 L BUN/Creatinine Ratio (7 - 25 %) 22.9 Hematology CBC w Diff MAN DIFF ORDERED WBC (4.8 - 10.8 /CUMM) 14.1 H RBC (4.70 - 6.10 /CUMM) 2.86 L Hgb (14.0 - 18.0 G/DL) 7.1 *L Hct (42 - 52 %) 22.8 L MCV (80.0 - 94.0 FL) 79.8 L MCH (27.0 - 31.0 PG) 25.0 L MCHC (33.0 - 37.0 G/DL) 31.3 L RDW (11.5 - 14.5 %) 17.4 H Plt Count (130 - 400 /CUMM) 408 H MPV (7.4 - 10.4 FL) 8.4 Gran % (42.2 - 75.2 %) 91.8 H Lymphocytes % (20.5 - 51.1 %) 3.9 L Monocytes % (1.7 - 9.3 %) 4.3 Eosinophils % (0 - 5 %) 0 Basophils % (0.0 - 2.0 %) 0 Absolute Granulocytes (1.4 - 6.5 /CUMM) 13.0 H Segmented Neutrophils (42.2 - 75.2 %) 89 H Band Neutrophils (0.0 - 5.0 %) 6 H Absolute Lymphocytes (1.2 - 3.4 /CUMM) 0.5 L Lymphocytes (20.5 - 51.1 %) 3 L Monocytes (1.7 - 9.3 %) 2 Absolute Monocytes (0.10 - 0.60 /CUMM) 0.6 Absolute Eosinophils (0.0 - 0.7 /CUMM) 0 Absolute Basophils (0.0 - 0.2 /CUMM) 0 Platelet Estimate (ADEQUATE) ADEQUATE Hypochromic-Microcytic 2+ Poikilocytosis 1+ Anisocytosis 1+ Microcytic Cells 1+ Ovalocytes Microbiology Date/Time Procedure - Status Source Growth 08/03 173 Legionella Antigen - COMP URINE ROUT 08/03 1730 Streptococcus pneumoniae Antigen (M - COMP URINE ROUT 08/03 0735 Respiratory Culture - RES LOWER RESP KLEBSIELLA PNEUMONIAE 08/03 0735 Gram Stain - RES LOWER RESP 08/03 0648 Blood Culture - RES BLOOD 08/03 0648 Blood Culture - RES BLOOD 08/02 1730 Urine Culture - COMP URINE ROUT 08/02 1430 Influenza Virus A & B Rapid Smear - COMP NASOPHARYN Impression/Plan Impression/Plan Impression/Plan: Impression/Plan: General Appearance Alert, Oriented X3, Cooperative, Mild Distress, mild tachypnea on 2L NC Cardiovascular Regular Rate, Normal S1, Normal S2, No Murmurs Lungs rhonchi on right side, no significant wheezing, no crackles Abdomen Normal Bowel Sounds, Soft, No Tenderness, No Masses Extremities No Clubbing, No Cyanosis, No Edema, Normal Pulses IMPRESSION This is a gentleman with history of 40 pack smoking history, quit more than 10 years ago, ischemic heart disease, previous alcohol use, diastolic heart disease , hiatal hernia with Zenker's diverticulum, severe COPD, previous history of prostate cancer, ischemic heart disease with previous angioplasty, significant aortic aneurysm versus contained dissection managed medically, previous urinary retention with remote history of prostate ca, history of bladder ca (details not available) now comes in with * Acute severe COPD exacerbation with hypoxemia, with fever yellow sputum and elevated wbc, with klebsiella bronchitis * End-stage COPD, with pulmonary hypertension, cor pulmonale * Significant aortic aneurysm with 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 He is a poor surgical candidate. * Paroxysmal atrial fibrillation. Patient on eloquis and amiodarone * REcent rectal bleed, pt on eloquis with anemia * On moderate beta tricia for his significant aortic dilatation versus aneurysm. * Previous history of prostate cancer with BPH, with recent history of bladder ca * Hypertension. * Remote history of alcohol, but has not been drinking lately. * Sig inguinal hernia RECOMMENDATION * Prednisone taper * Ceftin 250 bid for a total abx of seven days * nebs atc with duo neb and hold spiriva till dc, cont symbicort Cont all meds ok to dc
--- NOTE | 2017-08-05 13:05 | PN- Cardiology ---
Objective Vital Signs and I&Os Vital Signs Date Time Temp Pulse Resp B/P B/P Pulse O2 O2 Flow FiO2 Mean Ox Delivery Rate 08/05 0856 94 Nasal 3.0L Cannula 08/05 0819 66 116/56 08/05 0819 66 116/56 08/05 0818 66 116/56 08/05 0818 66 116/56 08/05 0800 97 Nasal 2.0L Cannula 08/05 0631 97.7 66 20 112/50 94 08/05 0000 Nasal 3.0L Cannula 08/04 2237 98.4 83 18 114/48 94 Nasal Cannula 08/04 2136 77 114/54 08/04 2115 96 Nasal 3.0L Cannula 08/04 1416 98.0 68 16 100/44 96 Nasal 3.0L Cannula Intake & Output 08/05 1600 08/05 0800 08/05 0000 08/04 1600 08/04 0800 08/04 0000 Intake Total 100 200 650 110 200 Output Total 550 300 450 Balance -450 200 350 110 -250 Intake, IV 250 10 Intake, Oral 100 200 400 100 200 Number 1 Bowel Movements Output, Urine 550 300 450 Patient 146 lb 141 lb Weight Weight Bed scale Bed scale Measurement Method Current Medications: Current Medications Sig/Jimbo Start time Last Medication Dose Route Stop Time Status Admin Albuterol Sulfate 3 ML TID 08/03 1600 AC 08/05 INH 1302 Albuterol Sulfate 2 PUF Q4-6 PRN PRN 08/03 0230 AC INH Amiodarone HCl 100 MG DAILY 08/05 1000 AC 08/05 PO 0819 Amiodarone HCl 200 MG DAILY 08/03 1000 DC 08/04 PO 1130 Amlodipine Besylate 2.5 MG DAILY 08/04 1000 DC 08/04 PO 1039 Apixaban 5 MG BID 08/03 1000 DC 04 PO 1036 Aspirin Buffered 81 MG DAILY 08/03 1000 DC 08/04 PO 1129 Budesonide/ 2 PUF BID 08/03 1000 AC 08/05 Formoterol Fumarate INH 0819 Ceftriaxone Sodium 1,000 MG DAILY 08/03 1200 AC 08/05 IV 0817 Ferrous Sulfate 325 MG DAILY 08/03 1500 AC 08/05 PO 0819 Finasteride 5 MG DAILY 08/04 1000 AC 08/05 PO 0818 Furosemide 20 MG DAILY 08/04 1000 AC 08/05 PO 0818 Guaifenesin/Codeine 10 ML Q4P PRN 08/04 0530 AC 08/05 Phosphate PO 1238 Ipratropium [place] 2.5 ML TID 08/03 1600 AC 08/05 INH 1302 Losartan Potassium 25 MG DAILY 08/04 1000 AC 08/05 PO 0819 Metoprolol Tartrate 25 MG BID 08/03 1000 AC 08/05 PO 0818 Nitroglycerin 0.4 MG ONCE ONE 08/05 0245 DC 08/05 SL 08/05 0246 0304 Omeprazole 40 MG DAILY AC 08/03 0700 AC 08/05 PO 0618 Polyethylene Glycol 17 GM DAILY 08/04 1034 AC 08/05 PO 0817 Prednisone 5 MG DAILY 08/16 1000 AC PO 08/19 0959 Prednisone 10 MG DAILY 08/13 1000 AC PO 08/16 0959 Prednisone 20 MG DAILY 08/10 1000 AC PO 08/13 0959 Prednisone 30 MG DAILY 08/07 1000 AC PO 08/10 0959 Prednisone 40 MG DAILY 08/04 1000 AC 08/05 PO 08/07 0959 0818 Senna/Docusate Sodium 2 TAB DAILY 08/04 2100 AC 08/05 PO 0817 Tamsulosin HCl 0.4 MG DAILY 08/03 1000 AC 08/05 PO 0818 Results Last 48 Hrs of Labs/Mics: Laboratory Tests 08/05/17 0607: Anion Gap 12, Estimated GFR 41 L, BUN/Creatinine Ratio 27.5 H, Lactate Dehydrogenase 452, CBC w Diff MAN DIFF ORDERED, RBC 3.00 L, MCV 79.6 L, MCH 25.2 L, MCHC 31.6 L, RDW 17.5 H, MPV 8.4, Segmented Neutrophils 81 H, Band Neutrophils 4, Lymphocytes 6 L, Monocytes 9, Nucleated RBCs 2 H, Platelet Estimate VERIFIED BY SMEAR, Polychromasia 1+, Poikilocytosis FEW, Anisocytosis 1 +, Ovalocytes FEW, Retic Count 2.07 H 08/04/17 1740: CBC w Diff NO MAN DIFF REQ, RBC 3.09 L, MCV 79.4 L, MCH 24.9 L, MCHC 31.4 L, RDW 17.4 H, MPV 9.2, Gran % 90.8 H, Lymphocytes % 4.5 L, Monocytes % 4.7, Eosinophils % 0, Basophils % 0, Absolute Granulocytes 14.1 H, Absolute Lymphocytes 0.7 L, Absolute Monocytes 0.7 H, Absolute Eosinophils 0, Absolute Basophils 0 08/04/17 0612: Anion Gap 11, Estimated GFR 38 L, BUN/Creatinine Ratio 22.9, CBC w Diff MAN DIFF ORDERED, RBC 2.86 L, MCV 79.8 L, MCH 25.0 L, MCHC 31.3 L, RDW 17.4 H, MPV 8.4, Gran % 91.8 H, Lymphocytes % 3.9 L, Monocytes % 4.3, Eosinophils % 0, Basophils % 0, Absolute Granulocytes 13.0 H, Segmented Neutrophils 89 H, Band Neutrophils 6 H, Absolute Lymphocytes 0.5 L, Lymphocytes 3 L, Monocytes 2, Absolute Monocytes 0.6, Absolute Eosinophils 0, Absolute Basophils 0, Platelet Estimate ADEQUATE, Hypochromic-Microcytic 2+, Poikilocytosis 1+, Anisocytosis 1+ , Microcytic Cells 1+, Ovalocytes Microbiology 08/03 1729 URINE ROUT: Legionella Antigen - COMP 08/03 1729 URINE ROUT: Streptococcus pneumoniae Antigen (M - COMP Assessment/Plan Assessment/Plan No objection to discharge from our perspective. I would keep the patient off eliquis until anemia w/u, GI consult completed. Continue ASA. Continue all other meds as is. F/U dr Cordoba.
[2017-08-05] MEDS ORDERED: CEFTIN250 MG/51 PO (13:17)
[2017-08-05] MEDS ORDERED: CEFUROXIME250 M1 PO (13:38)
[2017-08-05] MEDS ORDERED: AMIODARONE HCL100 M1 PO (18:25)
--- NOTE | 2017-08-05 18:29 | Event Note ---
See Addendum Event Note Event Note: S: Patient sent home with 200mg amiodarone daily (home dose) but cardiology recommended 100mg B: Cardiology recommended 100mg daily due to his age and lung disease A/R: Spoke to the patient and his and informed them that Dr. Cordoba recommended decreasing the amiodarone dose from 200 mg daily to 100 mg daily. The patient's states that his home amiodarone was on low supply. They asked for a new prescription to be sent to the pharmacy. I sent amiodarone 100mg daily for 30 days to [facility] in [place], [place]. I informed the family to stop taking the old 200mg pills.
--- NOTE | 2017-08-05 18:55 | Discharge Summary ---
Visit Information Visit Dates Admission Date: 08/02/17 Discharge Date: 08/05/17 Hospital Course Course Attending Physician: Isela Chaney MD Primary Care Physician: Donald Small MD Hospital Course: A: 86 year old male with past medical history significant for HTN, HFpEF, CAD, [place] 1991 s/p angioplasty, saccular aortic aneurysm, paroxysmal atrial fibrillation on eliquis and amiodarone, COPD on 2 L home O2 ([place]), former smoker, and prostate cancer presents with worsening shortness of breath with exertion. P: #Fall/near syncopal event: The patient had worsening SOB and dizzy spells. He lost his balance and fell down just before coming to ER lobby in the parking lot. His troponins and EKG were negative for any acute coronary syndrome. He was seen by physical therapy who recommended home physical therapy. #Symptomatic iron deficiency anemia The patient was found to have a hemoglobin <8 during most of the admission. This may have contributed to his shortness of breath. Iron studies revealed: iron 13 , TIBC 440, tracy 186. His B12, folate were normal. His stool was guaiac negative. The patient states that he got a colonoscopy within the past 10 years however he does not remember the provider's name for records. He was seen by cardiology who recommended holding his Eliquis and continuing his aspirin. He was advised to follow-up with cardiology outpatient in the PCP for GI outpatient anemia workup referral. #Exertional dyspnea 2/2 to COPD and Klebsiella bronchitis Chest x-ray revealed copd and increasing aneusym of aortic arch. Probnp was elevated at 1650. Patient had persistent leukocytosis and remained afebrile throughout admission besides 100.5 initial fever. She was treated with steroids, Symbicort. Urinary strep pneumo, strep legionella, and flu were negative. Low respiratory cultures grew klebsiella. She was treated with 3 days of ceftriaxone. She was discharged 4 days of Ceftin to complete 1 week course of antibiotics. She was given a by mouth steroid taper. We restarted her Spiriva each was initially held by pulmonology. #elevated blood surgar The patient was found to have elevated blood sugars but a normal hgbA1c. He was treated with low-dose NovoLog sliding scale. Most likely the elevated blood sugars are secondary to steroids. #CKD His chronic kidney disease remained at baseline around 1.6. #Chronic medical conditions: CAD/HFpEF/HTN/BPH: Continued lasix, aspirin, finasteride, losartan, amlodipine #Atrial fibrillation: Amiodarone was reduced from 200mg daily to 100 mg daily per cardiology. Metoprolol was also continued. Eliquis was held upon discharge per cardiology for possible GI bleed/anemia. Continued aspirin per cardiology. Allergies: Coded Allergies: NO KNOWN ALLERGIES (UNKNOWN 09/17/16) Disposition Summary Disposition Principal Diagnosis: COPD exascerbation Additional Diagnosis: Acute bronchitis Near syncope Symptomatic iron deficiency anemia Acute on chronic hypoxemic respiratory failure Discharge Disposition: home or self care Discharge Instructions General Discharge Information Code Status: Do Not Resucitate/Intubat Patient's Diet: Heart healthy Patient's Activity: As tolerated Follow-Up Instructions/Appts: Please follow up with your pcp in 1-2 weeks. Please also discuss with your pcp about further anemia testing and referral to GI for possible colonoscopy. Please follow up with your pump house engineer in 1-2 weeks. Please follow up with your new pulmnologist Dr. Bonner in 1-2 weeks. Please continue your medications as perscribed. Medications at Discharge Discharge Medications: Stop taking the following medications: Apixaban (Eliquis) 5 MG TABLET ORAL TWICE DAILY Days = 30 Amiodarone (Cordarone) 200 MG TABLET ORAL DAILY Days = 30 Continue taking these medications: Amlodipine Besylate (Amlodipine Besylate) 5 MG TABLET 5 Milligram ORAL DAILY Comments: Last Taken: 09/18/16 Time: 10:30 AM Aspirin (Ecotrin*) 81 MG TABLET. 81 Milligram ORAL DAILY Comments: NOT GIVEN Metoprolol Tartrate (Lopressor) 50 MG TABLET 25 Milligram ORAL TWICE DAILY Comments: Last Taken: 08/05/17 Time:0818 Vit D3 & K/Berberine HCl/Hops (Ostera Tablet) 500 UNIT-500 MCG-90 MG-370 MG TABLET 1,000 Units ORAL DAILY Comments: NOT GIVEN IN HOSPITAL Vit B12/FA/Pyridoxine HCl/Aa15 (Glycotrol Capsule) 500 MCG-400 MCG-10 MG-400 MG CAPSULE 100 Microgram ORAL DAILY Comments: NOT GIVEN IN HOSPITAL Vit C/Hesperidin/Bioflavonoids (Grande-C 500 Tablet) 500 MG-100 MG-100 MG TABLET 500 Milligram ORAL DAILY Comments: NOT GIVEN IN HOSPITAL Budesonide/Formoterol Fumarate (Symbicort 160-4.5 Mcg Inhaler) 160 MCG-4.5 MCG/ ACTUATION HFA.AER.AD 2 Puff Inhale through mouth TWICE DAILY Qty = 1 Comments: Last Taken:08/05/17 Time: 817 Omeprazole (Omeprazole) 20 MG TABLET.DR 20 Milligram ORAL DAILY Days = 30 Comments: Last Taken:08/05/17 Time:617 Albuterol Sulfate (Proair Hfa) 90 MCG HFA.AER.AD 2 Puff Inhale through mouth EVERY 4-6 HOURS NEEDED as needed for COPD Qty = 1 Comments: NOT TAKEN IN HOSPITAL Tamsulosin HCl (Flomax) 0.4 MG CAP.ER.24H 0.4 Milligram ORAL DAILY Days = 30 Comments: Last Taken:08/05/17 Time: 817 Tiotropium [place] (Spiriva) 18 MCG CAP.W.DEV 1 Capsule Inhale through mouth DAILY Qty = 30 Comments: Last Taken: 08/05/17 Time: 817 Anusol Hc (Anusol-Hc) 25 MG SUPP.RECT 1 Suppository RECTAL TWICE DAILY as needed for HEMORRHOIDS Qty = 28 Comments: NOT GIVEN Finasteride (Finasteride) 5 MG TABLET 1 Tablet ORAL DAILY Comments: Last Taken:08/05/17 Time:817 Furosemide (Lasix) 20 MG TABLET 1 Tablet ORAL TWICE DAILY Comments: Last Taken:08/05/17 Time:817 Losartan Potassium (Cozaar) 25 MG TABLET 1 Tablet ORAL DAILY Qty = 30 Comments: Last Taken:08/05/17 Time:817 Start taking the following new medications: Ferrous Sulfate (Ferrous Sulfate) 325 MG (65 MG IRON) TABLET.DR 1 Tablet ORAL DAILY Qty = 30 No Refills Instructions: . Comments: Last Taken:08/05/17 Time:817 Prednisone (Prednisone) 10 MG TABLET 1 Tablet ORAL TWICE DAILY Qty = 22 No Refills Instructions: Date #tab 08/06 4 08/07- 3 08/10- 2 08/13- 1 08/16- 0.5 Comments: Last Taken:08/05/17 Time:817 Cefuroxime Axetil (Cefuroxime) 250 MG TABLET 1 Tablet ORAL TWICE DAILY Qty = 8 No Refills Instructions: PLEASE START TAKING TOMORROW 4/7/18 Comments: NOT GIVEN Amiodarone HCl (Amiodarone HCl) 100 MG TABLET 1 Tablet ORAL DAILY Qty = 30 No Refills Copies To: Geovanny NEWSOME,Donald Santos
== END 2017-08-05 14:53 | DRG 190 ==
LOC: ERH 13:36 → 1NO 20:00 → ERHI 20:00 → ENRESERV 21:55 → ENTRNSPT 22:15 → EDTRNSPT 22:17 → EDTRNSPTSTS 22:17 → 2NB 22:29 → CMPTRNSPT 22:40 → 1NO 08-03 00:38 → ENPENDDIS 08-05 13:38 → ENTRNSPT 08-05 14:37 → EDTRNSPT 08-05 14:45 → EDTRNSPTSTS 08-05 14:45 → CMPTRNSPT 08-05 14:51 → 1NO 08-05 14:53
PROVIDERS: Emergency Medicine; Student in an Organized Health Care Education/Training Program
DX: J44.0 Chronic obstructive pulmonary disease with (acute) lower respiratory infection (principal); J96.21 Acute and chronic respiratory failure with hypoxia; I27.29 Other secondary pulmonary hypertension; I13.0 Hypertensive heart and chronic kidney disease with heart failure and stage 1 through stage 4 chronic kidney disease, or unspecified chronic kidney disease; I50.32 Chronic diastolic (congestive) heart failure; I48.0 Paroxysmal atrial fibrillation; I71.2 Thoracic aortic aneurysm, without rupture; J44.1 Chronic obstructive pulmonary disease with (acute) exacerbation; J20.9 Acute bronchitis, unspecified; Z99.81 Dependence on supplemental oxygen; Z79.01 Long term (current) use of anticoagulants; Y93.01 Activity, walking, marching and hiking; D50.9 Iron deficiency anemia, unspecified; Z85.46 Personal history of malignant neoplasm of prostate; N18.9 Chronic kidney disease, unspecified; I25.10 Atherosclerotic heart disease of native coronary artery without angina pectoris; I25.2 Old myocardial infarction; Z87.891 Personal history of nicotine dependence; W18.30XA Fall on same level, unspecified, initial encounter; Y92.481 Parking lot as the place of occurrence of the external cause; Z79.82 Long term (current) use of aspirin; Z79.51 Long term (current) use of inhaled steroids; E78.5 Hyperlipidemia, unspecified; Z90.49 Acquired absence of other specified parts of digestive tract; Z66 Do not resuscitate; R33.9 Retention of urine, unspecified; B96.1 Klebsiella pneumoniae [K. pneumoniae] as the cause of diseases classified elsewhere
CPT/HCPCS: 1NP; 2NBSP; 36415; 36592; 71045; 81001; 82436; 87040; 87070; 87086; 87449; 87450; 87804; 87804-59; 93005; 93010; 96374; 97116-GO; 97161-GP; 97530-GO; 99291; J0456; J0696; J2920; J2930; J3490; J7060; J7512